=== PATIENT | female | born 1945 | race Caucasian/White ===

== ENCOUNTER → 2024-09-16 | Outpatient (CLI) | payer MEDICARE, BC, SELFPAY ==
[2024-09-16 11:06] LABS: Alanine Aminotransferase 11 U/L (10-49); Albumin, Serum 4.2 gm/dL (3.4-4.8); Albumin/Globulin Ratio 1.6 (1.2-2.2); Alkaline Phosphatase 58 U/L (46-116); Anion Gap 7 (7-16); Aspartate Amino Transferase 19 U/L (0-34); BUN/Creatinine Ratio 25 Ratio (12-20); Bilirubin,Total 0.8 mg/dL (0.3-1.2); Blood Urea Nitrogen 20 mg/dL (9-23); Calcium 9.5 mg/dL (8.3-10.6); Calcium (Corrected) 9.5 mg/dL (8.5-10.1); Carbon Dioxide 29.4 mMol/L (20.0-31.0); Cardiac Risk Estimate 2.1 RATIO (3.7-5.6); Chloride 103 mMol/L (98-107); Cholesterol 131 mg/dL (132-200); Creatinine (Component) 0.8 mg/dL (0.6-1.3); Globulin 2.6 gm/dL (2.3-3.5); Glucose 94 mg/dL (74-106); HDL Cholesterol 61 mg/dL (40-60); LDL Cholesterol,Calculated 56 mg/dL (0-130); Osmolality,Calculated 280 (275-295); Potassium 4.6 mMol/L (3.4-5.1); Sodium 139 mMol/L (136-145); Total Protein 6.8 gm/dL (5.7-8.2); Triglycerides 69 mg/dL (30-150); eGFR > 60 See Note
== END | disposition home or self-care (01) ==
LOC: COPL 07:10
PROVIDERS: PCP Internal Medicine; Referring Provider Internal Medicine; Visit Provider Internal Medicine
DX: I10 Essential (primary) hypertension (principal); E78.5 Hyperlipidemia, unspecified
CPT/HCPCS: 36415; 80053; 80061

== ENCOUNTER 2025-01-13 06:38 | Day surgery (SDC) | payer MEDICARE, BC, SELFPAY ==
[2025-01-11 09:04] VITALS: BMI 25.7
--- NOTE | 2025-01-12 07:00 | EKG_ITS ---
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
[2025-01-12 09:43] LABS: Basophils # (Auto) 0.0 Thou/mm3 (0.0-0.2); Basophils % (Auto) 0 % (0-2.5); Eosinophils # (Auto) 0.2 Thou/mm3 (0.0-0.5); Eosinophils % (Auto) 3 % (0-10); Hematocrit 37.6 % (36.0-46.0); Hemoglobin 12.5 g/dL (12.0-16.0); Immature Granulocytes Auto 0.01 Thou/mm3 (0.00-0.00); Lymphocytes # (Auto) 1.2 Thou/mm3 (1.0-4.8); Lymphocytes % (Auto) 16 % (10-50); Mean Corpuscular HGB Conc 33.2 g/dl (31.0-37.0); Mean Corpuscular Hemoglobin 31.6 pg (25.0-35.0); Mean Corpuscular Volume 95 fL (80-100); Monocytes # (Auto) 0.6 Thou/mm3 (0.0-0.8); Monocytes % (Auto) 8 % (0-12); Neutrophils # (Auto) 5.6 Thou/mm3 (1.8-7.7); Neutrophils % (Auto) 73 % (37-80); Nucleated Red Blood Cell # 0.00 Thou/mm3 (0.00-0.00); Nucleated Red Blood Cell % 0 /100 WBC (0); Platelet Count 232 Thou/mm3 (140-440); RDW Standard Deviation 44.6 fL (36.4-46.3); Red Blood Count 3.96 Miln/mm3 (4.00-5.20); White Blood Count 7.8 Thou/mm3 (3.6-11.0)
[2025-01-12 09:50] LABS: INR 1.0 (0.9-1.3); Partial Thromboplastin Time 25.3 Seconds (22.0-36.0); Prothrombin Time 11.1 Seconds (9.0-12.2)
[2025-01-12 09:58] LABS: Anion Gap 6 (7-16); BUN/Creatinine Ratio 31 Ratio (12-20); Blood Urea Nitrogen 22 mg/dL (9-23); Calcium 9.9 mg/dL (8.3-10.6); Carbon Dioxide 30.5 mMol/L (20.0-31.0); Chloride 103 mMol/L (98-107); Creatinine (Component) 0.7 mg/dL (0.6-1.3); Estimated Creatinine Clearance 60.4 mL/min (>60); Glucose 107 mg/dL (74-106); Osmolality,Calculated 280 (275-295); Potassium 4.5 mMol/L (3.4-5.1); Sodium 139 mMol/L (136-145); eGFR > 60 See Note
[2025-01-13] VITALS (12 sets, daily range): BP systolic 119–142; BP diastolic 55–74; PULSE 60–68; RESP 12–20; TEMP 36.4; O2SAT 93–97
--- NOTE | 2025-01-13 07:59 | PD.CARDCATH ---
Cardiac Cath Procedure Procedure Narrative Date of the procedure 01/13/2025 Indication for the procedure This is a 79-year-old female with hypertension hyperlipidemia artery disease Prior history of angioplasty and stent placement Patient was complaining of atypical chest pain Cardiolite scan was abnormal showing anteroseptal ischemia Cardiac catheter cholangiogram recommended Title of the procedure 1.left heart catheterization 2.left coronary angiogram 3.right coronary angiogram 4.left ventriculogram 5.conscious sedation 6.radiographic interpretation supervision 7.ultrasound guidance for right radial access Procedure This was done in the cardiac lab under current electrocardiographic monitoring Intermittent blood pressure monitoring right radial access obtained using modified Seldinger technique and ultrasound guidance 6 English sheath was placed TIG 4 catheter was used for selective engagement of the left coronary artery TIG 4 catheter was used for selective images right coronary artery TIG 4 catheter used for left ventriculogram Hemodynamics Overall left ventricular systolic function appears normal Approximate ejection fraction 55% End-diastolic pressure was 18 mmHg There is no gradient across the aortic valve Coronary anatomy 1.left main coronary artery appears normal 2.left anterior descending artery does not seem to have any significant lesion Close at the apex 30 to 40% luminal irregularities noted 3.circumflex does not seem to have any significant lesion, obtuse marginal appears to be normal 4.right coronary is a dominant vessel stent in the proximal region appears to be widely patent 5.posterior descending artery has luminal regularities Conclusion Stent in the proximal RCA widely patent No other significant lesion
== END 2025-01-13 11:10 | disposition home or self-care (01) ==
PROVIDERS: PCP Internal Medicine; Referring Provider Internal Medicine; Visit Provider Internal Medicine
PROC: (CPT 93458; principal; 2025-01-13 07:45)
DX: R07.89 Other chest pain (principal); Z95.5 Presence of coronary angioplasty implant and graft; Z01.810 Encounter for preprocedural cardiovascular examination; E78.5 Hyperlipidemia, unspecified; M79.606 Pain in leg, unspecified; I25.2 Old myocardial infarction; I10 Essential (primary) hypertension
CPT/HCPCS: 93458; 36415; 80048; 85025; 85610; 85730; 93005; 99152; A4216; A4649; C1769; C1887; C1894; J0461; J0583; J1643; J2250; J2312; J2371; J3010; J3490; Q9967

== ENCOUNTER → 2025-03-01 | Outpatient (CLI) | payer MEDICARE, BC, SELFPAY ==
[2025-03-01 08:40] LABS: Basophils # (Auto) 0.1 Thou/mm3 (0.0-0.2); Basophils % (Auto) 1 % (0-2.5); Eosinophils # (Auto) 0.3 Thou/mm3 (0.0-0.5); Eosinophils % (Auto) 3 % (0-10); Hematocrit 36.6 % (36.0-46.0); Hemoglobin 11.5 g/dL (12.0-16.0); Immature Granulocytes Auto 0.02 Thou/mm3 (0.00-0.00); Lymphocytes # (Auto) 1.3 Thou/mm3 (1.0-4.8); Lymphocytes % (Auto) 13 % (10-50); Mean Corpuscular HGB Conc 31.4 g/dl (31.0-37.0); Mean Corpuscular Hemoglobin 28.9 pg (25.0-35.0); Mean Corpuscular Volume 92 fL (80-100); Monocytes # (Auto) 1.0 Thou/mm3 (0.0-0.8); Monocytes % (Auto) 9 % (0-12); Neutrophils # (Auto) 7.6 Thou/mm3 (1.8-7.7); Neutrophils % (Auto) 74 % (37-80); Nucleated Red Blood Cell # 0.00 Thou/mm3 (0.00-0.00); Nucleated Red Blood Cell % 0 /100 WBC (0); Platelet Count 365 Thou/mm3 (140-440); RDW Standard Deviation 45.8 fL (36.4-46.3); Red Blood Count 3.98 Miln/mm3 (4.00-5.20); White Blood Count 10.3 Thou/mm3 (3.6-11.0)
[2025-03-01 08:50] LABS: Glucose Estimated Average 105 mg/dL (80-131); Hemoglobin A1C 5.3 % Hgb (4.8-6.0)
[2025-03-01 08:52] LABS: INR 1.0 (0.9-1.3); Partial Thromboplastin Time 24.9 Seconds (22.0-36.0); Prothrombin Time 10.9 Seconds (9.0-12.2)
[2025-03-01 08:58] LABS: Alanine Aminotransferase 111 U/L (10-49); Albumin, Serum 4.2 gm/dL (3.4-4.8); Albumin/Globulin Ratio 1.6 (1.2-2.2); Alkaline Phosphatase 437 U/L (46-116); Anion Gap 9 (7-16); Aspartate Amino Transferase 222 U/L (0-34); BUN/Creatinine Ratio 21 Ratio (12-20); Bilirubin,Total 0.9 mg/dL (0.3-1.2); Blood Urea Nitrogen 17 mg/dL (9-23); Calcium 9.5 mg/dL (8.3-10.6); Calcium (Corrected) 9.5 mg/dL (8.5-10.1); Carbon Dioxide 26.5 mMol/L (20.0-31.0); Cardiac Risk Estimate 4.7 RATIO (3.7-5.6); Chloride 106 mMol/L (98-107); Cholesterol 165 mg/dL (132-200); Creatinine (Component) 0.8 mg/dL (0.6-1.3); Globulin 2.7 gm/dL (2.3-3.5); Glucose 99 mg/dL (74-106); HDL Cholesterol 35 mg/dL (40-60); LDL Cholesterol,Calculated 104 mg/dL (0-130); Osmolality,Calculated 282 (275-295); Potassium 5.0 mMol/L (3.4-5.1); Sodium 141 mMol/L (136-145); Thyroid Stimulating Hormone 1.98 uIU/mL (0.55-4.78); Total Protein 6.9 gm/dL (5.7-8.2); Triglycerides 132 mg/dL (30-150); Uric Acid 5.3 mg/dL (3.1-7.8); eGFR > 60 See Note
[2025-03-01 09:01] LABS: Vitamin B12 846 pg/mL (211-911); Vitamin D 25 Hydroxy Total 51.3 ng/mL (7.3-40.2)
[2025-03-01 13:03] LABS: Collection Type, Urine Clean Catch
[2025-03-01 13:38] LABS: Bilirubin,Urine Negative (Negative); Blood,Urine Negative (Negative); Clarity,Urine Clear (Clear/Hazy); Color,Urine Lt-Yellow (Lt Yel-Yel); Glucose, Urine Negative (Negative); Hyaline Casts,Urine < 1 /hpf (0-1); Ketones,Urine Trace (Negative); Leukocyte Esterase,Urine Positive (Negative); Nitrite,Urine Negative (Negative); PH,Urine 6.0 (5.0-7.0); Protein,Urine 1+ (Neg - Trace); RBC,Urine 4 /hpf (0-3); Specific Gravity,Urine 1.013 (1.001-1.035); Squamous Epithelial Cell,Urine 2 /hpf (0-5); Urobilinogen,Urine Negative mg/dL (0.0-1.0); WBC,Urine 7 /hpf (0-5)
== END | disposition home or self-care (01) ==
PROVIDERS: PCP Internal Medicine; Referring Provider Internal Medicine; Visit Provider Internal Medicine
DX: I25.10 Atherosclerotic heart disease of native coronary artery without angina pectoris (principal); I48.91 Unspecified atrial fibrillation; Z00.00 Encounter for general adult medical examination without abnormal findings; I10 Essential (primary) hypertension; E78.5 Hyperlipidemia, unspecified; M54.50 Low back pain, unspecified; D51.9 Vitamin B12 deficiency anemia, unspecified; E55.9 Vitamin D deficiency, unspecified
CPT/HCPCS: 36415; 80053; 80061; 81001; 82306; 82607; 83036; 84443; 84550; 85025; 85610; 85730

== ENCOUNTER 2025-03-03 16:48 | Inpatient (IN) | payer MEDICARE, BC, SELFPAY ==
[2025-03-03 16:49] VITALS: BMI 24.0
[2025-03-03 17:07] VITALS: BP 108/68; PULSE 91; RESP 18; TEMP 37.1; O2SAT 96
--- NOTE | 2025-03-03 17:32 | XR_ITS ---
EXAMINATION: PA chest single view TECHNIQUE: Upright PA chest single view Date and time: March 03, 2025, 1736 hours INDICATIONS: Shortness of breath today. FINDINGS: Normal heart size The lungs are clear. The osseous structures are demineralized IMPRESSION: No active disease
--- NOTE | 2025-03-03 17:32 | XR_ITS ---
Examination: Abdomen sonogram, Limited Date and time of exam: March 03, 2025, 1753 hours INDICATIONS: Elevated liver function tests on laboratory examination today, abdominal pain 2 weeks Technique: Real-time jacobo scale transabdominal sonographic images of the upper abdomen obtained. Findings: No diagnostic visualization gallbladder Common bile duct 0.2 cm Pancreatic head 2.0 cm Liver 16.7 cm multiple liver lesions, the largest in the left lobe 7.7 x 5.6 x 7.0 cm Liver contour is irregular Normal hepatopetal portal venous flow Patent IVC IMPRESSION: Recommend repeat gallbladder portion of the study with fasting Hepatomegaly with multiple liver lesions Recommend CT scan abdomen/pelvis post intravenous contrast follow-up
--- NOTE | 2025-03-03 17:33 | EKG_ITS ---
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
--- NOTE | 2025-03-03 17:34 | PD.EDADULT ---
ED General RME/HPI General Chief complaint: General Adult/Misc Complain Stated complaint: GEN WEAKNESS, FEELS SICK XCOUPLE WEEKS SENT BY VEM Time Seen by Provider: 03/03/25 17:21 Arrival date/time: 03/03/25 16:48 RME / HPI RME / HPI narrative: 79-year-old female patient was brought in by family after patient was advised to go to the emergency room for generalized body weakness. Patient has been having worsening generalized body weakness, before he used to voluntary in the hospital, and that was last week, but for the last couple of days, patient felt tired easily, associated with shortness of breath, severity moderate. Patient was seen by PCP 2 days ago and laboratory workup was done. Today got a call from the PCP Dr Montes, to go to the emergency room due to elevated LFTs. Patient denies any abdominal pain denies any cough denies any headache denies any upper or lower extremity weakness. Related Data Home Medications ?Medication ?Instructions ?Recorded ?Confirmed alprazolam 0.25 mg tablet 0.25 mg PO Q12H PRN anxiety 01/13/25 01/13/25 aspirin 81 mg tablet,delayed 81 mg PO QDAY 01/13/25 01/13/25 release (Adult Low Dose Aspirin) atorvastatin 80 mg tablet 80 mg PO QDAY 01/13/25 01/13/25 carvedilol 3.125 mg tablet 3.125 mg PO DAILY 01/13/25 01/13/25 escitalopram oxalate 10 mg tablet 10 mg PO DAILY 01/13/25 01/13/25 Allergies Allergy/AdvReac Type Severity Reaction Status Date / Time No Known Allergies Allergy Verified 03/03/25 16:51 Review of Systems Review of Systems Narrative Review of Systems: Review of system reviewed and within normal limits except mentioned in HPI ED Exam Narrative Physical exam: VITAL SIGNS: Reviewed. GENERAL APPEARANCE: Alert and interactive, follows commands, no acute distress, HEAD AND FACE: Non-traumatic. ENT: PERRL, pink conjunctivitis, eyelid no trauma, Mucous membrane moist. NECK: Supple, nontender, no nuchal rigidity. CHEST: No tenderness, no crepitus, no paradoxical movement, no retractions. LUNGS: Clear, well ventilated, symmetric, no rales, no wheezing, no ronchi, no stridor, good breath sounds bilaterally. HEART: Regular rate, regular rhythm, no murmur, no gallops. ABDOMEN: Soft, positive bowel sounds, nondistended, no guarding, nontender, no rebound, no masses, RECTAL: Deferred. GENITAL: Deferred. NEUROLOGICAL: Gross motor function intact sensory function intact, Appropriate for age. MUSCULOSKELETAL: low back nontender, full range of motion. EXTREMITIES: Nontender, full range of motion. SKIN: Color pink, dry, no rash, no lacerations, no abrasions, no contusions. LYMPHATICS: Deferred. Course Quality Measures none Orders Category Date Time Status Admit to Inpatient Status Routine Admission 03/03/25 20:44 Active COVID-19 Screening Questionnaire NOW Care 03/03/25 20:[address] Screening NOW Care 03/03/25 19:53 Active Decision to Admit X1 Care 03/03/25 20:35 Completed EKG (ED ONLY) *Do not use* NOW Care 03/03/25 17:33 Completed NPO after Midnight ONCE Care 03/03/25 20:46 Active Diet Cardiac Diet 03/04/25 Breakfast Active Diet NPO after Midnight Diet 03/04/25 00:01 Active EKG (ED Only) Stat Exams 03/03/25 17:33 Draft US gall bladder Stat Exams 03/03/25 17:32 Completed XR chest 1V Stat Exams 03/03/25 17:32 Completed B-Type Natriuretic Peptide Stat Lab 03/03/25 17:49 Completed CBC Stat Lab 03/03/25 17:49 Completed CK [Creatine Kinase] Stat Lab 03/03/25 17:49 Completed Comprehensive Metabolic Panel Stat Lab 03/03/25 17:49 Completed Hepatitis Acute Panel Stat Lab 03/03/25 17:49 Completed Lipase Stat Lab 03/03/25 17:49 Completed Partial Thromboplastin Time Stat Lab 03/03/25 17:49 Completed Troponin I Stat Lab 03/03/25 17:49 Completed Urinalysis, C/S if Indicated Stat Lab 03/03/25 17:32 Ordered Ringers Lactated 1000 ml [Lactated Ringers] 1,000 ml Med 03/03/25 17:34 Discontinued IV 999 mls/hr Sodium Chloride 0.9% 1000 ml [Ns] 1,000 ml Med 03/03/25 20:47 Active IV 70 mls/hr Code Status Routine Oth 03/03/25 20:44 Ordered Vital Signs Vital signs: Vital Signs Temperature 98.7 F 03/03/25 17:07 Pulse Rate 91 03/03/25 17:07 Respiratory Rate 18 03/03/25 17:07 Blood Pressure 108/68 03/03/25 17:07 Pulse Oximetry (%) 96 03/03/25 17:07 Oxygen Delivery Method Room Air 03/03/25 17:07 Discharge Plan Plan Patient Disposition: Admit Acute Care w/in Hospital Problem List Clinical Impression: Transaminitis, Lesion of liver MDM Narrative MDM hospital course (for use when minimal MDM required): 79-year-old female patient was brought in by family after patient was advised to go to the emergency room for generalized body weakness. Patient has been having worsening generalized body weakness, before he used to voluntary in the hospital, and that was last week, but for the last couple of days, patient felt tired easily, associated with shortness of breath, severity moderate. Patient was seen by PCP 2 days ago and laboratory workup was done. Today got a call from the PCP Dr Montes, to go to the emergency room due to elevated LFTs. Patient denies any abdominal pain denies any cough denies any headache denies any upper or lower extremity weakness. I reviewed patient's previous LFTs, it was elevated, 2 days if LFTs are slightly worse than 2 days ago. AST of 230, ALT of 107 alkaline phos of 463, total creatinine kinase of 515. CT scan of the abdomen and pelvis showed Subcentimeter bilateral lower lobe pulmonary nodules Significant hepatomegaly with multiple hepatic metastases No bowel obstruction Trace ascites Patient received IV fluids. Discussed the case with patient's PCP, who admitted the patient. Medication Administration(s) Medication Administration History Sodium Chloride (Ns) 1,000 mls @ 70 mls/hr IV .[id number] JEROME Stop: 04/02/25 20:46 Last Admin: 03/03/25 21:07 Dose: 70 mls/hr Documented By: BRYAN Discontinued Medications Lactated Ringer's (Lactated Ringers) 1,000 mls @ 999 mls/hr IV .Q1H1M ONE Stop: 03/03/25 18:34 Last Infusion: 03/03/25 20:04 Dose: Infused Documented By: Admin: 03/03/25 18:33 Dose: 999 mls/hr Documented By: EF Diagnosis Differential Diagnosis ED Complaint MDM: Dehydration, liver mass, multiple liver lesions possible metastasis
[2025-03-03 18:10] LABS: Basophils # (Auto) 0.1 Thou/mm3 (0.0-0.2); Basophils % (Auto) 1 % (0-2.5); Eosinophils # (Auto) 0.3 Thou/mm3 (0.0-0.5); Eosinophils % (Auto) 2 % (0-10); Hematocrit 35.0 % (36.0-46.0); Hemoglobin 11.3 g/dL (12.0-16.0); Immature Granulocytes Auto 0.04 Thou/mm3 (0.00-0.00); Lymphocytes # (Auto) 1.2 Thou/mm3 (1.0-4.8); Lymphocytes % (Auto) 12 % (10-50); Mean Corpuscular HGB Conc 32.3 g/dl (31.0-37.0); Mean Corpuscular Hemoglobin 29.1 pg (25.0-35.0); Mean Corpuscular Volume 90 fL (80-100); Monocytes # (Auto) 1.0 Thou/mm3 (0.0-0.8); Monocytes % (Auto) 9 % (0-12); Neutrophils # (Auto) 7.9 Thou/mm3 (1.8-7.7); Neutrophils % (Auto) 76 % (37-80); Nucleated Red Blood Cell # 0.00 Thou/mm3 (0.00-0.00); Nucleated Red Blood Cell % 0 /100 WBC (0); Platelet Count 363 Thou/mm3 (140-440); RDW Standard Deviation 44.7 fL (36.4-46.3); Red Blood Count 3.88 Miln/mm3 (4.00-5.20); White Blood Count 10.4 Thou/mm3 (3.6-11.0)
[2025-03-03 18:22] VITALS: BP 134/62; PULSE 77; RESP 15; O2SAT 97
[2025-03-03 18:28] LABS: B-Type Natriuretic Peptide 93 pg/mL (0-100)
[2025-03-03 18:30] LABS: Alanine Aminotransferase 107 U/L (10-49); Albumin, Serum 4.3 gm/dL (3.4-4.8); Albumin/Globulin Ratio 1.7 (1.2-2.2); Alkaline Phosphatase 463 U/L (46-116); Anion Gap 11 (7-16); Aspartate Amino Transferase 230 U/L (0-34); BUN/Creatinine Ratio 16 Ratio (12-20); Bilirubin,Total 0.9 mg/dL (0.3-1.2); Blood Urea Nitrogen 13 mg/dL (9-23); Calcium 9.1 mg/dL (8.3-10.6); Calcium (Corrected) 9.1 mg/dL (8.5-10.1); Carbon Dioxide 23.6 mMol/L (20.0-31.0); Chloride 103 mMol/L (98-107); Creatine Kinase 514 U/L (34-171); Creatinine (Component) 0.8 mg/dL (0.6-1.3); Estimated Creatinine Clearance 50.0 mL/min (>60); Globulin 2.5 gm/dL (2.3-3.5); Glucose 110 mg/dL (74-106); Lipase 61 U/L (12-53); Osmolality,Calculated 276 (275-295); Potassium 4.2 mMol/L (3.4-5.1); Sodium 138 mMol/L (136-145); Total Protein 6.8 gm/dL (5.7-8.2); Troponin I < 0.020 ng/mL (0.0-0.045); eGFR > 60 See Note
[2025-03-03 18:33] LABS: Partial Thromboplastin Time 23.6 Seconds (22.0-36.0)
[2025-03-03] MEDS: RINGERS LACTATED 1000 ML 1,000 ML 999 ML IV (18:33)
[2025-03-03 19:22] VITALS: BP 145/60; PULSE 71; RESP 16; TEMP 37.1; O2SAT 98
[2025-03-03 19:23] LABS: Hepatitis A Antibody IgM Non Reactive (Non React); Hepatitis B Core Antibody IgM Non Reactive (Non React); Hepatitis B Surface Antigen Non Reactive (Non React); Hepatitis C Antibody Non Reactive (Non React)
--- NOTE | 2025-03-03 20:05 | PC.NURSE ---
pt resting quietly. family at bedside. waiting for CT.
[2025-03-03 21:03] VITALS: BP 116/60; PULSE 75; RESP 18; TEMP 37; O2SAT 96
[2025-03-03] MEDS: SODIUM CHLORIDE 0.9% 1000 ML 1,000 ML 70 ML IV (21:07)
--- NOTE | 2025-03-03 22:07 | XR_ITS ---
Examination: CT abdomen with intravenous contrast CT pelvis with intravenous contrast 2-D coronal reconstructions 2-D sagittal reconstructions Date and time of exam: March 03, 2025, 10:22 p.m INDICATIONS: Acute elevated liver enzymes on laboratory examination today, multiple liver lesions on ultrasound study today. CTDI: vol (mGy) 8.50 DLP: (mGycm) 495 Technique: Multiple axial sections of the abdomen and pelvis have been obtained. 64 slice high-resolution scanner used. 3 mm axial sections have been obtained, post intravenous injection 60 cc [id number] 2-D sagittal, coronal reconstructions obtained. Low dose protocols were performed. One or more of the following dose reduction techniques were used; automated exposure control, adjustment of the mA and/or KV according to patient size, use of iterative reconstruction technique. Findings: 3 mm pulmonary nodule left lower lobe 4 mm pulmonary nodule right lower lobe Multiple liver lesions including 5 cm mass in the left lobe The liver is enlarged No pancreatic or adrenal mass Aorta is heavily calcified no aneurysmal dilatation Trace ascites No bowel obstruction Bladder intact No diverticulitis Grade 1 anterolisthesis L4 on L5 IMPRESSION: Subcentimeter bilateral lower lobe pulmonary nodules Significant hepatomegaly with multiple hepatic metastases No bowel obstruction Trace ascites
[2025-03-03 23:54] VITALS: BMI 25.3
[2025-03-04] VITALS (18 sets, daily range): BP systolic 121–159; BP diastolic 41–76; PULSE 60–76; RESP 12–24; TEMP 36.1–36.9; O2SAT 91–100
--- NOTE | 2025-03-04 05:53 | XR_ITS ---
Examination: CT-guided percutaneous biopsy left lobe liver lesion CT abdomen without intravenous contrast INDICATIONS: CT abdomen pelvis March 03, 2025 and multiple liver lesions Date and time of procedure: March 04, 2025, 1039 hours Informed consent provided. A timeout was completed verifying correct patient, procedure, site and positioning. Technique: Axial 3 mm sections were obtained for localization of a left lobe liver lesion Appropriate area is marked. The patient's site was prepped and draped in sterile fashion Maximal sterile barrier technique utilized, including hand hygiene Local anesthesia was obtained with 1% lidocaine. Low dose protocols were performed. One or more of the following dose reduction techniques were used; automated exposure control, adjustment of the mA and/or KV according to patient size, use of iterative reconstruction technique. Utilizing CT fluoroscopic guidance 2 core biopsies obtained the left lobe liver lesion Patient appears in stable condition during this procedure. At completion of the procedure, the patient is in satisfactory condition. Estimated blood loss 2 cc Complete pathology report to follow. Impression: Successful CT-guided percutaneous biopsy left lobe liver lesion
--- NOTE | 2025-03-04 05:58 | XR_ITS ---
Examination: CT chest, without contrast. 2-D sagittal reconstructions. 2-D coronal reconstructions. 3-D reconstructions. Date and time of exam: March 04, 2025, 1026 hours INDICATIONS: History lung nodules and liver masses on CT abdomen study March 03, 2025, staging CTDI: vol (mGy): 9.48 DLP: (mGycm): 293 Technique: Multiple 1.25 mm axial sections of the chest without intravenous contrast have been obtained. 2-D sagittal and coronal reconstructions have been obtained. 3-D reconstructions have been obtained. Low dose protocols were performed. One or more of the following dose reduction techniques were used; automated exposure control, adjustment of the mA and/or KV according to patient size, use of iterative reconstruction technique. Findings: 2 mm calcified right thyroid nodule No thoracic aortic aneurysm dilatation Pulmonary artery segments are not enlarged. Heavy calcification left anterior descending coronary artery Mild enlargement cardiac contour 3 mm pulmonary nodule right upper lobe image 58 4 mm pulmonary nodule right upper lobe image 95 3 mm pulmonary nodule left upper lobe image 150 10 mm pulmonary nodule right middle lobe image 172 Severe osteopenia IMPRESSION: Multiple noncalcified pulmonary nodules as above, consider early pulmonary nodular metastatic disease Recommend continued chest imaging follow-up
[2025-03-04 08:05] LABS: AFP Non-Pregnant 6.60 ng/mL (<8.10); CA 125 20.0 U/mL (<30.2); CA 15-3 10.2 U/mL (<32.4); Carcinoembryonic Antigen 272.7 ng/mL (0.0-5.0)
[2025-03-04] MEDS: ESCITALOPRAM OXALATE 10 MG TABLET PO (09:13)
[2025-03-04 09:35] LABS: INR 1.1 (0.9-1.3); Partial Thromboplastin Time 24.8 Seconds (22.0-36.0); Prothrombin Time 11.6 Seconds (9.0-12.2)
--- NOTE | 2025-03-04 09:40 | PC.NURSE ---
[id number] 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
[2025-03-04] MEDS: fentaNYL CIT INJ 50 mCg/ML AMP 2ML 75 MCG IVP (10:46)
--- NOTE | 2025-03-04 11:00 | PC.NURSE ---
1100 patient is awake, alert, breathing unlabored, s/p liver biopsy, dressing to right upper abdomen dry with no bleeding. Patient transferred from CT department to woven label designer for recovery. Dr. Recinos ordered chest xray prior to taking patient back to her room.
--- NOTE | 2025-03-04 11:00 | XR_ITS ---
EXAMINATION: AP chest single view TECHNIQUE: 1. AP portable upright chest single view Date and time: March 04, 2025, 11:26 a.m. INDICATIONS: Post biopsy liver lesion near the hemidiaphragm FINDINGS: No pneumothorax No significant cardiac enlargement Prominent osteopenia IMPRESSION: No pneumothorax
--- NOTE | 2025-03-04 11:12 | PC.SS ---
Patient Chanell Nair is a 79 Year old female admitted for Acute Hepatitis, Elevated Liver Enzymes. SS contacted patient's daughter, Aneta Lindo to verify demographic information. Patient's daughter reports she is patient's surrogate decision maker, [phone]. Prior to admission patient was not utilizing any source of DME. Patient was able to complete all ADL's independently. [facility] PCP is Florencio Ruiz. At time of discharge patient will return back home. Family will provide transportation. Discharge plan: Home Next of kin: daughterAneta
--- NOTE | 2025-03-04 11:22 | PC.SS ---
SS follow up note; Patient is pending Liver biopsy. Patient will discharge back home when medically cleared.
--- NOTE | 2025-03-04 11:30 | PC.NURSE ---
chest xray taken
--- NOTE | 2025-03-04 11:50 | PC.NURSE ---
1150 patient is awake, alert, breathing unlabored, s/p liver biopsy, dressing dry with no bleeding, report given to Tommie RN, patient transferred back to room 382. chest xray completed and ready by maciej Gao to transfer patient back to med surg room.
--- NOTE | 2025-03-04 12:24 | PC.NURSE ---
pt back from ir pt alert and oriented gcs 15 no signs of distress noted.
--- NOTE | 2025-03-04 14:12 | PD.RESHP ---
Documentation for date of: 03/04/25 HPI History of Present Illness Chief complaint: Elevated liver enzymes, multiple liver lesions History of present illness: HPI: A 79-year-old female patient with past medical history of hypertension, hyperlipidemia, CAD status post angioplasty and stent placement came to the ED after she was found to have elevated liver enzymes by her PCP. She reported for the past 1 month she has been feeling not good and she reported severe lower extremity weakness. She reported that she was unable to ambulate as usual to be, she also reported not feeling herself. Patient called her PCP Dr. Montes, in which blood work was done and showed elevated liver enzymes AST 222 ALT 111 alkaline phosphatase 437 and normal total bilirubin. Patient underwent liver ultrasound that showed multiple liver lesions. An abdominal and pelvic CT scan was done and showed significant hepatomegaly with multiple hepatic metastasis and also subcentimeter is bilateral nodules in both lungs. Her CEA level was 200. Surprisingly patient denied any nausea, vomiting, abdominal pain, distention, constipation, or bleeding per rectum. She reported that her bowel habits usually have a bowel movement 2 to 3 days which is her usual bowel habit with no change. GI team was consulted due to elevated liver enzyme 272.7, and multiple liver lesions most likely metastasis of unknown source and the possibility the need for colonoscopy. Home medications: Alprazolam, aspirin, atorvastatin, carvedilol, escitalopram PMH: As above PSX: No previous colonoscopies in the past or EGDs. PFX: Sister with history of throat cancer , brother with lung cancer. Social hx: Alcohol: Used to drink socially, no history of alcohol use disorder Tobacco: Occasionally stopped when she was in her 30s Illicit drugs: Denied Allergies: No known allergies Review of Systems Review of Systems Systems Reviewed: All systems reviewed, normal except as documented Exam Vital Signs Temp Pulse Resp BP Pulse Ox O2 Del Method O2 Flow Rate 97.0 F 70 16 130/62 95 Room Air 3 03/04/25 12:00 03/04/25 12:00 03/04/25 12:00 03/04/25 12:00 03/04/25 12:00 03/04/25 12:00 03/04/25 10:57 Narrative Exam GEN: AOx3, able to speak full sentences HEENT: NC/AC, PERRLA, oral mucosa moist, neck supple CVS: RRR, S1-S2 present, no murmurs appreciated RESP: CTAB GI: soft,non distended, non tender, NBS MSK: able to move all 4 limbs, however decreased power 3/5 both lower extremity no lower extremity edema SKIN: warm and dry ARMOURED CAR ESCORT: CN II-XII and Sensation grossly intact. Results: Labs 03/03/25 17:49 03/03/25 17:49 Labs: Short CBC 03/03/25 Range/Units 17:49 WBC 10.4 (3.6-11.0) Thou/mm3 Hgb 11.3 L (12.0-16.0) g/dL Hct 35.0 L (36.0-46.0) % Plt Count 363 (140-440) Thou/mm3 BMP 03/03/25 17:49 Sodium 138 Potassium 4.2 D Chloride 103 Carbon Dioxide 23.6 BUN 13 Creatinine 0.8 Glucose 110 H Calcium 9.1 Cardiac Enzymes 03/03/25 Range/Units 17:49 Total Creatine Kinase 514 H (34-171) U/L Troponin I < 0.020 (0.0-0.045) ng/mL Liver Function 03/03/25 Range/Units 17:49 Total Bilirubin 0.9 (0.3-1.2) mg/dL AST 230 H (0-34) U/L ALT 107 H (10-49) U/L Alkaline Phosphatase 463 H D (46-116) U/L Albumin 4.3 (3.4-4.8) gm/dL Urine 03/03/25 Range/Units 23:35 Urine Color Cancelled Urine Clarity Cancelled Urine pH Cancelled Ur Specific [place] Cancelled Urine Protein Cancelled Urine Glucose (UA) Cancelled Quality Measures Quality Measures none Advance care planning discussed with:: patient Medications Home Medications and Allergies Home Medications ?Medication ?Instructions ?Recorded ?Confirmed ?Type alprazolam 0.25 mg tablet 0.25 mg PO Q12H PRN anxiety 01/13/25 03/04/25 History aspirin 81 mg tablet,delayed 81 mg PO QDAY 01/13/25 03/04/25 History release (Adult Low Dose Aspirin) atorvastatin 80 mg tablet 80 mg PO QDAY 01/13/25 03/04/25 History carvedilol 3.125 mg tablet 3.125 mg PO DAILY 01/13/25 03/04/25 History escitalopram oxalate 10 mg tablet 10 mg PO DAILY 01/13/25 03/04/25 History Allergies Allergy/AdvReac Type Severity Reaction Status Date / Time No Known Allergies Allergy Verified 03/03/25 16:51 Visit Medications Alprazolam (Alprazolam 0.25 Mg Tablet) 0.25 mg PO Q12H PRN PRN Reason: ANXIETY Stop: 03/09/25 05:52 Carvedilol (Carvedilol 3.125 Mg Tablet) 3.125 mg PO DAILY JEROME Stop: 04/03/25 08:59 Last Admin: 03/04/25 09:13 Dose: 3.125 mg Escitalopram Oxalate (Escitalopram Oxalate 10 Mg Tablet) 10 mg PO DAILY JEROME Stop: 04/03/25 08:59 Last Admin: 03/04/25 09:13 Dose: 10 mg Sodium Chloride (Ns) 1,000 mls @ 70 mls/hr IV .[id number] JEROME Stop: 04/02/25 20:46 Last Admin: 03/03/25 21:07 Dose: 70 mls/hr Discontinued Medications Fentanyl Citrate (Fentanyl Cit Inj 50 Mcg/Ml Amp 2ml) 75 mcg IVP X1 ONE Stop: 03/04/25 10:42 Last Admin: 03/04/25 10:46 Dose: 75 mcg Lactated Ringer's (Lactated Ringers) 1,000 mls @ 999 mls/hr IV .Q1H1M ONE Stop: 03/03/25 18:34 Last Infusion: 03/03/25 20:04 Dose: Infused Assessment & Plan Plan Summary:A 79-year-old female patient with past medical history of hypertension, hyperlipidemia, CAD status post angioplasty and stent placement came to the ED after she was found to have elevated liver enzymes by her PCP. She reported for the past 1 month she has been feeling not good and she reported severe lower extremity weakness. Patient was found to have multiple liver lesions and elevated CEA and liver enzymes. Assessment and plan #Multiple liver lesions #Hepatomegaly #Elevated liver enzymes Patient was complaining of generalized weakness for 1 month, denied any weight loss. She has 2 siblings diagnosed with cancer at the age of 60. Reported that she has also anorexia. Patient underwent liver ultrasound that showed multiple liver lesions. An abdominal and pelvic CT scan was done and showed significant hepatomegaly with multiple hepatic metastasis and also subcentimeter is bilateral nodules in both lungs. Her CEA level was 272.2. AFP was normal, surprisingly patient denied any nausea, vomiting, abdominal pain, distention, constipation, or bleeding per rectum. blood work was done and showed elevated liver enzymes AST 222 ALT 111 alkaline phosphatase 437 and normal total bilirubin Plan ? Patient will most likely need colonoscopy, ? Keep the patient n.p.o. start the patient on GoLytely ? Daily CBC monitor hemoglobin and transfuse as needed ? Consider consulting oncology ? Can continue aspirin 81 mg a medication #Pulmonary nodules #Hypertension #Coronary artery disease #Anxiety and depression Continue medication as per primary team Thank you for consultation, please do not hesitate to reach out if you have any question or concern. - Patient's plan and care discussed with my attending, Dr. Nagi Vyas MD Internal Medicine PGY-3
--- NOTE | 2025-03-04 16:17 | ESHP_ITS ---
Documentation for date of: 03/04/25 [facility] History of Present Illness Chief complaint: Generalized weakness for several weeks, sent by PCP for elevated LFT History of present illness: 79-year-old female with past medical history significant for hypertension, hyperlipidemia, and coronary artery disease status post angioplasty and stent placement, who presented to the emergency department after being advised by her PCP, Dr. Montes, due to elevated liver enzymes and progressive generalized weakness. The patient reports feeling ?not good? for approximately one month, with increasing fatigue and bilateral lower extremity weakness. Over the past week, she noted worsening tiredness and shortness of breath with minimal exertion. She denies any chest pain, palpitations, cough, fever, chills, abdominal pain, nausea, vomiting, distention, jaundice, constipation, melena, hematochezia, or urinary symptoms. She describes normal bowel habits of 2?3 days between movements, which is unchanged from baseline. She has not noticed unintentional weight loss but does endorse decreased appetite and mild anorexia. She was evaluated by her PCP yesterday, where labs showed elevated AST 222, ALT 111, alkaline phosphatase 437, and normal bilirubin. A liver ultrasound revealed multiple hepatic lesions, prompting a CT abdomen/pelvis, which showed significant hepatomegaly with numerous hepatic metastases and subcentimeter pulmonary nodules bilaterally. In the ED, repeat labs demonstrated further elevation of LFTs (AST 238, ALT 107, Alk Phos 463) and CEA 272, with normal AFP, CA 125, and CA 15-3. Patient was started on IV fluids, GI was consulted, and she was admitted for further evaluation and management of multiple hepatic lesions concerning for metastatic disease of unknown primary. Review of Systems: Constitutional: +Fatigue, +Weakness, denies weight loss, fevers, or chills HEENT: No headache, vision changes, sore throat Cardiac: Denies chest pain or palpitations Respiratory: Mild exertional dyspnea, denies cough or sputum GI: Denies abdominal pain, N/V, melena, hematochezia, or jaundice : No dysuria or hematuria Neuro: No focal weakness, no paresthesia, no confusion MSK: Mild generalized weakness, no joint pain or swelling Skin: No rash, lesions, or jaundice Psych: Reports mild anxiety; denies depression or SI/HI Past Medical History: * Hypertension * Hyperlipidemia * Coronary artery disease s/p angioplasty and stent placement * Anxiety and depression Past Surgical History: * Angioplasty and coronary stent placement * Denies prior EGD or colonoscopy Family History: * Sister: Throat cancer * Brother: Lung cancer Social History: * Tobacco: Former smoker, quit in her 30s * Alcohol: Occasional, social only; denies heavy use * Drugs: Denies illicit drug use * Living situation: Lives with family, independent in ADLs Allergies: * No known drug allergies (NKDA) Home Medications: * Alprazolam 0.25 mg Q12H PRN * Aspirin 81 mg daily * Atorvastatin 80 mg daily * Carvedilol 3.125 mg BID * Escitalopram 10 mg daily Exam Vital Signs Temp Pulse Resp BP Pulse Ox O2 Del Method O2 Flow Rate 97.4 F 75 18 140/64 H 94 L Room Air 3 03/04/25 16:00 03/04/25 16:00 03/04/25 16:00 03/04/25 16:00 03/04/25 16:00 03/04/25 16:00 03/04/25 10:57 Narrative Exam General: Alert, oriented ?3, no acute distress, conversant. HEENT: Normocephalic, atraumatic; PERRL; oral mucosa moist; no icterus. Neck: Supple, no JVD, no thyromegaly. Cardiac: Regular rate and rhythm; no murmurs, rubs, or gallops. Lungs: Clear to auscultation bilaterally, no rales, wheezes, or rhonchi. Abdomen: Soft, nondistended, nontender; hepatomegaly noted; bowel sounds present. Extremities: No edema; peripheral pulses intact. Neuro: Cranial nerves II?XII grossly intact; strength 3/5 lower extremities, 5/5 upper; sensation intact. Skin: Warm, dry; no jaundice or rash. Results: Labs 03/06/25 04:16 03/06/25 04:16 Labs: Short CBC 03/03/25 Range/Units 17:49 WBC 10.4 (3.6-11.0) Thou/mm3 Hgb 11.3 L (12.0-16.0) g/dL Hct 35.0 L (36.0-46.0) % Plt Count 363 (140-440) Thou/mm3 BMP 03/03/25 17:49 Sodium 138 Potassium 4.2 D Chloride 103 Carbon Dioxide 23.6 BUN 13 Creatinine 0.8 Glucose 110 H Calcium 9.1 Cardiac Enzymes 03/03/25 Range/Units 17:49 Total Creatine Kinase 514 H (34-171) U/L Troponin I < 0.020 (0.0-0.045) ng/mL Liver Function 03/03/25 Range/Units 17:49 Total Bilirubin 0.9 (0.3-1.2) mg/dL AST 230 H (0-34) U/L ALT 107 H (10-49) U/L Alkaline Phosphatase 463 H D (46-116) U/L Albumin 4.3 (3.4-4.8) gm/dL Urine 03/03/25 Range/Units 23:35 Urine Color Cancelled Urine Clarity Cancelled Urine pH Cancelled Ur Specific [place] Cancelled Urine Protein Cancelled Urine Glucose (UA) Cancelled Quality Measures Quality Measures VTE prophylaxis Advance care planning discussed with:: patient Medications Home Medications and Allergies Home Medications ?Medication ?Instructions ?Recorded ?Confirmed ?Type alprazolam 0.25 mg tablet 0.25 mg PO Q12H PRN anxiety 01/13/25 03/04/25 History aspirin 81 mg tablet,delayed 81 mg PO QDAY 01/13/25 History release (Adult Low Dose Aspirin) atorvastatin 80 mg tablet 80 mg PO QDAY 01/13/2503/04 History carvedilol 3.125 mg tablet 3.125 mg PO DAILY 01/13/25 03/04/25 History escitalopram oxalate 10 mg tablet 10 mg PO DAILY 01/1303/04/25 History Allergies Allergy/AdvReac Type Severity Reaction Status Date / Time No Known Allergies Allergy Verified 03/03/25 16:51 Visit Medications Alprazolam (Alprazolam 0.25 Mg Tablet) 0.25 mg PO Q12H PRN PRN Reason: ANXIETY Stop: 03/09/25 05:52 Carvedilol (Carvedilol 3.125 Mg Tablet) 3.125 mg PO DAILY JEROME Stop: 04/03/25 08:59 Last Admin: 03/04/25 09:13 Dose: 3.125 mg Escitalopram Oxalate (Escitalopram Oxalate 10 Mg Tablet) 10 mg PO DAILY JEROME Stop: 04/03/25 08:59 Last Admin: 03/04/25 09:13 Dose: 10 mg Sodium Chloride (Ns) 1,000 mls @ 70 mls/hr IV .[id number] JEROME Stop: 04/02/25 20:46 Last Admin: 03/03/25 21:07 Dose: 70 mls/hr Discontinued Medications Fentanyl Citrate (Fentanyl Cit Inj 50 Mcg/Ml Amp 2ml) 75 mcg IVP X1 ONE Stop: 03/04/25 10:42 Last Admin: 03/04/25 10:46 Dose: 75 mcg Lactated Ringer's (Lactated Ringers) 1,000 mls @ 999 mls/hr IV .Q1H1M ONE Stop: 03/03/25 18:34 Last Infusion: 03/03/25 20:04 Dose: Infused Assessment & Plan Plan 79-year-old female with CAD, HTN, and HLD presenting with 1 month of progressive generalized weakness and recent labs showing markedly elevated LFTs and imaging consistent with multiple hepatic metastases and pulmonary nodules concerning for metastatic malignancy of unknown primary. # Multiple Hepatic Lesions / Hepatomegaly Likely metastatic disease; primary likely GI origin given markedly elevated CEA and classic liver + lung pattern. DDX: -Metastatic colorectal carcinoma (CEA markedly elevated; no prior colonoscopy; classic hepatic and pulmonary spread) -Pancreaticobiliary malignancy ? less likely (no obstructive pattern, normal CA 19-9) -Metastatic lung carcinoma ? possible with pulmonary nodules -Metastatic breast carcinoma ? less likely (CA 15-3 normal) -Cholangiocarcinoma ? possible but imaging favors discrete metastatic lesions Plan: * Await liver biopsy pathology * Keep NPO after midnight for possible colonoscopy * Start GoLYTELY bowel prep per GI * Daily CMP, CBC to trend LFTs and monitor for anemia * Will consider consulting oncology for further evaluation * Continue IV fluids for hydration * Pain control PRN * Nutritional evaluation and support # Elevated Liver Enzymes Pattern consistent with cholestatic/mixed injury due to metastatic involvement. No evidence of obstructive jaundice or infection. Plan: * Continue to monitor LFT trends * Avoid hepatotoxic medications (hold statin for now) * Continue IV hydration * Monitor for signs of hepatic decompensation # Pulmonary Nodules CT chest shows multiple non-calcified nodules suggestive of early metastatic disease. Plan: * Will consult oncology tomorrow to evaluate for staging workup # Hypertension Stable, controlled on current meds. Plan: * Continue carvedilol * Monitor BP daily # Coronary Artery Disease s/p stent; currently stable, denies chest pain. Plan: * Hold aspirin for now * Hold statin due to LFT elevation * Monitor cardiac enzymes and telemetry # Anxiety and Depression Stable on escitalopram and alprazolam PRN. Plan: * Continue home meds * Supportive care Health Maintenance: Admit to Medicine for further diagnostic work-up, GI and Oncology involved Await biopsy results and tumor staging DVT prophylaxis: SCD GI prophylaxis: PPI daily Diet: NPO for colonoscopy prep --> advance as tolerated Code Status: Full Code ----- Plan discussed with attending physician Dr. Jyoti White MD PGY-1 Internal Medicine Attending Provider Attestation/Addendum Patient seen and examined with resident physician Dr. White. Note reviewed, agree with findings and recommendations. Patient with elevated liver enzymes. Pending the liver biopsy as CT showed multiple liver masses.
--- NOTE | 2025-03-04 17:40 | PD.RESCONSUL ---
HPI Data of Consult Requesting Physician: Doug Montes MD Admitting Provider: Doug Montes MD Attending Provider: Doug Montes MD Primary Care Provider: Doug Montes MD Consult Narrative Reason for consult: Elevated liver enzymes, multiple liver lesions History of present illness: Chief complaint:Generalized weakness History of present illness: HPI: A 79-year-old female patient with past medical history of hypertension, hyperlipidemia, CAD status post angioplasty and stent placement came to the ED after she was found to have elevated liver enzymes by her PCP. She reported for the past 1 month she has been feeling not good and she reported severe lower extremity weakness. She reported that she was unable to ambulate as usual to be, she also reported not feeling herself. Patient called her PCP Dr. Montes, in which blood work was done and showed elevated liver enzymes AST 222 ALT 111 alkaline phosphatase 437 and normal total bilirubin. Patient underwent liver ultrasound that showed multiple liver lesions. An abdominal and pelvic CT scan was done and showed significant hepatomegaly with multiple hepatic metastasis and also subcentimeter is bilateral nodules in both lungs. Her CEA level was 200. Surprisingly patient denied any nausea, vomiting, abdominal pain, distention, constipation, or bleeding per rectum. She reported that her bowel habits usually have a bowel movement 2 to 3 days which is her usual bowel habit with no change. GI team was consulted due to elevated liver enzyme 272.7, and multiple liver lesions most likely metastasis of unknown source and the possibility the need for colonoscopy. Home medications: Alprazolam, aspirin, atorvastatin, carvedilol, escitalopram PMH: As above PSX: No previous colonoscopies in the past or EGDs. PFX: Sister with history of throat cancer , brother with lung cancer. Social hx: Alcohol: Used to drink socially, no history of alcohol use disorder Tobacco: Occasionally stopped when she was in her 30s Illicit drugs: Denied Allergies: No known allergies cc:: cc: Doug Montes MD Review of Systems Review of Systems Systems Reviewed: All systems reviewed, normal except as documented Exam Vital Signs Temp Pulse Resp BP Pulse Ox O2 Del Method O2 Flow Rate 97.4 F 75 18 140/64 H 94 L Room Air 3 03/04/25 16:00 03/04/25 16:00 03/04/25 16:00 03/04/25 16:00 03/04/25 16:00 03/04/25 16:00 03/04/25 10:57 Narrative Exam GEN: AOx3, able to speak full sentences HEENT: NC/AC, PERRLA, oral mucosa moist, neck supple CVS: RRR, S1-S2 present, no murmurs appreciated RESP: CTAB GI: soft,non distended, non tender, NBS MSK: able to move all 4 limbs, however decreased power 3/5 both lower extremity no lower extremity edema SKIN: warm and dry EMERGENCY MEDICAL TECHNICIAN/DRIVER: CN II-XII and Sensation grossly intact. Results Labs 03/03/25 17:49 03/03/25 17:49 Labs: Short CBC 03/03/25 Range/Units 17:49 WBC 10.4 (3.6-11.0) Thou/mm3 Hgb 11.3 L (12.0-16.0) g/dL Hct 35.0 L (36.0-46.0) % Plt Count 363 (140-440) Thou/mm3 BMP 03/03/25 17:49 Sodium 138 Potassium 4.2 D Chloride 103 Carbon Dioxide 23.6 BUN 13 Creatinine 0.8 Glucose 110 H Calcium 9.1 Cardiac Enzymes 03/03/25 Range/Units 17:49 Total Creatine Kinase 514 H (34-171) U/L Troponin I < 0.020 (0.0-0.045) ng/mL Liver Function 03/03/25 Range/Units 17:49 Total Bilirubin 0.9 (0.3-1.2) mg/dL AST 230 H (0-34) U/L ALT 107 H (10-49) U/L Alkaline Phosphatase 463 H D (46-116) U/L Albumin 4.3 (3.4-4.8) gm/dL Urine 03/03/25 Range/Units 23:35 Urine Color Cancelled Urine Clarity Cancelled Urine pH Cancelled Ur Specific [place] Cancelled Urine Protein Cancelled Urine Glucose (UA) Cancelled Quality Measures Quality Measures VTE prophylaxis Advance care planning discussed with:: patient Medications Home Medications and Allergies Home Medications ?Medication ?Instructions ?Recorded ?Confirmed ?Type alprazolam 0.25 mg tablet 0.25 mg PO Q12H PRN anxiety 01/13/25 03/04/25 History aspirin 81 mg tablet,delayed 81 mg PO QDAY 01/13/25 03/04/25 History release (Adult Low Dose Aspirin) atorvastatin 80 mg tablet 80 mg PO QDAY 01/13/25 03/04/25 History carvedilol 3.125 mg tablet 3.125 mg PO DAILY 01/13/25 03/04/25 History escitalopram oxalate 10 mg tablet 10 mg PO DAILY 01/13/25 03/04/25 History Allergies Allergy/AdvReac Type Severity Reaction Status Date / Time No Known Allergies Allergy Verified 03/03/25 16:51 Visit Medications Alprazolam (Alprazolam 0.25 Mg Tablet) 0.25 mg PO Q12H PRN PRN Reason: ANXIETY Stop: 03/09/25 05:52 Carvedilol (Carvedilol 3.125 Mg Tablet) 3.125 mg PO DAILY JEROME Stop: 04/03/25 08:59 Last Admin: 03/04/25 09:13 Dose: 3.125 mg Escitalopram Oxalate (Escitalopram Oxalate 10 Mg Tablet) 10 mg PO DAILY JEROME Stop: 04/03/25 08:59 Last Admin: 03/04/25 09:13 Dose: 10 mg Sodium Chloride (Ns) 1,000 mls @ 70 mls/hr IV .[id number] JEROME Stop: 04/02/25 20:46 Last Admin: 03/03/25 21:07 Dose: 70 mls/hr Pantoprazole Sodium (Pantoprazole Inj 40 Mg Vial) 40 mg IVP QDAY JEROME Stop: 04/04/25 08:59 Discontinued Medications Fentanyl Citrate (Fentanyl Cit Inj 50 Mcg/Ml Amp 2ml) 75 mcg IVP X1 ONE Stop: 03/04/25 10:42 Last Admin: 03/04/25 10:46 Dose: 75 mcg Lactated Ringer's (Lactated Ringers) 1,000 mls @ 999 mls/hr IV .Q1H1M ONE Stop: 03/03/25 18:34 Last Infusion: 03/03/25 20:04 Dose: Infused Assessment & Plan Plan Summary:A 79-year-old female patient with past medical history of hypertension, hyperlipidemia, CAD status post angioplasty and stent placement came to the ED after she was found to have elevated liver enzymes by her PCP. She reported for the past 1 month she has been feeling not good and she reported severe lower extremity weakness. Patient was found to have multiple liver lesions and elevated CEA and liver enzymes. Assessment and plan #Multiple liver lesions #Hepatomegaly #Elevated liver enzymes Patient was complaining of generalized weakness for 1 month, denied any weight loss. She has 2 siblings diagnosed with cancer at the age of 60. Reported that she has also anorexia. Patient underwent liver ultrasound that showed multiple liver lesions. An abdominal and pelvic CT scan was done and showed significant hepatomegaly with multiple hepatic metastasis and also subcentimeter is bilateral nodules in both lungs. Her CEA level was 272.2. AFP was normal, surprisingly patient denied any nausea, vomiting, abdominal pain, distention, constipation, or bleeding per rectum. blood work was done and showed elevated liver enzymes AST 222 ALT 111 alkaline phosphatase 437 and normal total bilirubin Plan ? Patient will most likely need colonoscopy, ? Keep the patient n.p.o. start the patient on GoLytely ? Daily CBC monitor hemoglobin and transfuse as needed ? Consider consulting oncology ? Can continue aspirin 81 mg a medication #Pulmonary nodules #Hypertension #Coronary artery disease #Anxiety and depression Continue medication as per primary team Thank you for consultation, please do not hesitate to reach out if you have any question or concern. - Patient's plan and care discussed with my attending, Dr. Nagi Vyas MD Internal Medicine PGY-3 Attending Provider Attestation/Addendum Patient personally examined by me Laboratory data and the imaging studies reviewed Patient has elevated CEA level and multiple hepatic lesions on imaging studies There is an elevated CEA level of 272 Patient most likely has metastatic GI tract origin primarily colon carcinoma CT-guided biopsy is already being done Clear liquid diet GoLytely prep Schedule the patient for a colonoscopy to make sure colon is clean Primary has to be identified Will continue to follow the patient Thank you once again for the opportunity to participate in care of this patient
[2025-03-04] MEDS: SODIUM CHLORIDE 0.9% 1000 ML 1,000 ML 70 ML IV (19:26)
[2025-03-04] MEDS: NA SU/NAHCO3/KC/PEG (Golytely) 4,000 ML BTL 4000 ML PO (19:46)
[2025-03-05] VITALS (18 sets, daily range): BP systolic 115–164; BP diastolic 47–88; PULSE 62–80; RESP 16–22; TEMP 35.8–37.4; O2SAT 93–98
[2025-03-05 05:36] LABS: Basophils # (Auto) 0.0 Thou/mm3 (0.0-0.2); Basophils % (Auto) 0 % (0-2.5); Eosinophils # (Auto) 0.1 Thou/mm3 (0.0-0.5); Eosinophils % (Auto) 1 % (0-10); Hematocrit 29.6 % (36.0-46.0); Hemoglobin 9.6 g/dL (12.0-16.0); Immature Granulocytes Auto 0.02 Thou/mm3 (0.00-0.00); Lymphocytes # (Auto) 0.9 Thou/mm3 (1.0-4.8); Lymphocytes % (Auto) 12 % (10-50); Mean Corpuscular HGB Conc 32.4 g/dl (31.0-37.0); Mean Corpuscular Hemoglobin 29.4 pg (25.0-35.0); Mean Corpuscular Volume 91 fL (80-100); Monocytes # (Auto) 0.9 Thou/mm3 (0.0-0.8); Monocytes % (Auto) 12 % (0-12); Neutrophils # (Auto) 5.8 Thou/mm3 (1.8-7.7); Neutrophils % (Auto) 75 % (37-80); Nucleated Red Blood Cell # 0.00 Thou/mm3 (0.00-0.00); Nucleated Red Blood Cell % 0 /100 WBC (0); Platelet Count 258 Thou/mm3 (140-440); RDW Standard Deviation 45.5 fL (36.4-46.3); Red Blood Count 3.26 Miln/mm3 (4.00-5.20); White Blood Count 7.7 Thou/mm3 (3.6-11.0)
[2025-03-05 06:10] LABS: Alanine Aminotransferase 102 U/L (10-49); Albumin, Serum 3.5 gm/dL (3.4-4.8); Albumin/Globulin Ratio 1.6 (1.2-2.2); Alkaline Phosphatase 411 U/L (46-116); Anion Gap 10 (7-16); Aspartate Amino Transferase 218 U/L (0-34); BUN/Creatinine Ratio 18 Ratio (12-20); Bilirubin,Total 0.8 mg/dL (0.3-1.2); Blood Urea Nitrogen 11 mg/dL (9-23); Calcium 8.4 mg/dL (8.3-10.6); Calcium (Corrected) 8.8 mg/dL (8.5-10.1); Carbon Dioxide 25.0 mMol/L (20.0-31.0); Chloride 107 mMol/L (98-107); Creatinine (Component) 0.6 mg/dL (0.6-1.3); Estimated Creatinine Clearance 72.8 mL/min (>60); Globulin 2.2 gm/dL (2.3-3.5); Glucose 108 mg/dL (74-106); Magnesium 2.1 mg/dL (1.6-2.6); Osmolality,Calculated 283 (275-295); Phosphorous 2.0 mg/dL (2.4-5.1); Potassium 3.9 mMol/L (3.4-5.1); Sodium 142 mMol/L (136-145); Total Protein 5.7 gm/dL (5.7-8.2); eGFR > 60 See Note
[2025-03-05] MEDS: ESCITALOPRAM OXALATE 10 MG TABLET PO (08:07)
--- NOTE | 2025-03-05 11:14 | PC.SS ---
SS follow up note; Patient will possibly have a Colonoscopy. Patient will discharge home when medically cleared.
--- NOTE | 2025-03-05 11:21 | ESPR_ITS ---
Documentation for date of: 03/05/25 Subjective Subjective Interval history: 79-year-old female with past medical history significant for hypertension, hyperlipidemia, and coronary artery disease status post angioplasty and stent placement, who presented to the emergency department after being advised by her PCP, Dr. Montes, due to elevated liver enzymes and progressive generalized weakness. The patient reports feeling ?not good? for approximately one month, with increasing fatigue and bilateral lower extremity weakness. Over the past week, she noted worsening tiredness and shortness of breath with minimal exertion. She denies any chest pain, palpitations, cough, fever, chills, abdominal pain, nausea, vomiting, distention, jaundice, constipation, melena, hematochezia, or urinary symptoms. She describes normal bowel habits of 2?3 days between movements, which is unchanged from baseline. She has not noticed unintentional weight loss but does endorse decreased appetite and mild anorexia. She was evaluated by her PCP yesterday, where labs showed elevated AST 222, ALT 111, alkaline phosphatase 437, and normal bilirubin. A liver ultrasound revealed multiple hepatic lesions, prompting a CT abdomen/pelvis, which showed significant hepatomegaly with numerous hepatic metastases and subcentimeter pulmonary nodules bilaterally. In the ED, repeat labs demonstrated further elevation of LFTs (AST 238, ALT 107, Alk Phos 463) and CEA 272, with normal AFP, CA 125, and CA 15-3. Patient was started on IV fluids, GI was consulted, and she was admitted for further evaluation and management of multiple hepatic lesions concerning for metastatic disease of unknown primary. 03/05/2025: Seen the patient today, she is doing well and reports no new complaints. She completed her GoLYTELY prep overnight and is ready for colonoscopy today. Denies abdominal pain, nausea, or vomiting. Discussed with her in detail the CT findings of multiple hepatic lesions and pulmonary nodules and explained the next steps regarding colonoscopy and pending biopsy results. She expressed understanding and agreement with the plan. We will also test for Coccidioides (Valley Fever) to rule out infectious causes of pulmonary nodules. WBC 7.7, Hgb 9.6 (11.3 yesterday), Platelets 258, Na 142, K 3.9, Cr 0.6, BUN 11, AST 218, ALT 102, Alk Phos 411, Bilirubin 0.8. Exam Vital Signs Temp Pulse Resp BP Pulse Ox O2 Del Method O2 Flow Rate 97.8 F 72 16 138/55 H 96 Room Air 3 03/05/25 07:50 03/05/25 08:08 03/05/25 07:50 03/05/25 08:08 03/05/25 07:50 03/05/25 07:50 03/04/25 10:57 Narrative Exam General: Alert, oriented ?3, no acute distress, conversant. HEENT: Normocephalic, atraumatic; PERRL; oral mucosa moist; no icterus. Neck: Supple, no JVD, no thyromegaly. Cardiac: Regular rate and rhythm; no murmurs, rubs, or gallops. Lungs: Clear to auscultation bilaterally, no rales, wheezes, or rhonchi. Abdomen: Soft, nondistended, nontender; bowel sounds present. Extremities: No edema; peripheral pulses intact. Neuro: Cranial nerves II?XII grossly intact; strength 3/5 lower extremities, 5/5 upper; sensation intact. Skin: Warm, dry; no jaundice or rash. Objective Labs 03/06/25 04:16 03/06/25 04:16 Labs: Laboratory Results - last 24 hr 03/05/25 05:13 WBC 7.7 RBC 3.26 L Hgb 9.6 L Hct 29.6 L MCV 91 MCH 29.4 MCHC 32.4 RDW Std Deviation 45.5 Plt Count 258 D Neut % (Auto) 75 Lymph % (Auto) 12 [place] % (Auto) 12 Eos % (Auto) 1 Baso % (Auto) 0 Neut # (Auto) 5.8 Lymph # (Auto) 0.9 L [place] # (Auto) 0.9 H Eos # (Auto) 0.1 Baso # (Auto) 0.0 Immature Gran # (Auto) 0.02 H Absolute Nucleated RBC 0.00 Immature Gran % 0 Nucleated RBC % 0 Sodium 142 Potassium 3.9 Chloride 107 Carbon Dioxide 25.0 Anion Gap 10 BUN 11 Creatinine 0.6 Estim Creat Clear Calc 72.8 eGFR > 60 BUN/Creatinine Ratio 18 Glucose 108 H Calculated Osmolality 283 Calcium 8.4 Corrected Calcium 8.8 Phosphorus 2.0 L Magnesium 2.1 Total Bilirubin 0.8 AST 218 H ALT 102 H Alkaline Phosphatase 411 H D Total Protein 5.7 Albumin 3.5 D Globulin 2.2 L Albumin/Globulin Ratio 1.6 Quality Measures Quality Measures VTE prophylaxis Advance care planning discussed with:: patient and child Assessment & Plan Assessment Current Active Medications: Generic Name Dose Route Start Last Admin Trade Name Freq PRN Reason Stop Dose Admin Alprazolam 0.25 mg 03/04/25 05:53 Alprazolam 0.25 Mg Tablet PO 03/09/25 05:52 Q12H PRN ANXIETY Carvedilol 3.125 mg 03/04/25 09:00 03/05/25 08:08 Carvedilol 3.125 Mg Tablet PO 04/03/25 08:59 3.125 mg DAILY JEROME Administration Escitalopram Oxalate 10 mg 03/04/25 09:00 03/05/25 08:07 Escitalopram Oxalate 10 Mg Tablet PO 04/03/25 08:59 10 mg DAILY JEROME Administration Sodium Chloride 1,000 mls @ 70 mls/hr 03/03/25 20:47 03/04/25 19:26 Ns IV 04/02/25 20:46 70 mls/hr .[id number] JEROME Administration Pantoprazole Sodium 40 mg 03/05/25 09:00 03/05/25 08:10 Pantoprazole Inj 40 Mg Vial IVP 04/04/25 08:59 40 mg QDAY JEROME Administration Plan 79-year-old female with CAD, HTN, and HLD presenting with multifocal hepatic lesions and pulmonary nodules, elevated LFTs, and elevated CEA?highly concerning for metastatic malignancy of unknown primary. Currently stable, awaiting colonoscopy for further evaluation. # Multiple Hepatic Lesions / Hepatomegaly Likely metastatic disease; primary likely GI origin given markedly elevated CEA and classic liver + lung pattern. DDX: -Metastatic colorectal carcinoma (CEA markedly elevated; no prior colonoscopy; classic hepatic and pulmonary spread) -Pancreaticobiliary malignancy ? less likely (no obstructive pattern, normal CA 19-9) -Metastatic lung carcinoma ? possible with pulmonary nodules -Metastatic breast carcinoma ? less likely (CA 15-3 normal) -Cholangiocarcinoma ? possible but imaging favors discrete metastatic lesions Plan: * Proceed with colonoscopy today * Continue NPO until procedure complete * Await liver biopsy pathology results * Continue to trend CBC, CMP, INR daily * Hold atorvastatin due to hepatotoxicity risk * Continue IV fluids * Pain control PRN * Nutrition consult for appetite and support # Elevated Liver Enzymes Pattern consistent with cholestatic/mixed injury due to metastatic involvement. No evidence of obstructive jaundice or infection. Plan: * Continue to monitor LFT trends * Avoid hepatotoxic medications (hold statin for now) * Continue IV hydration * Monitor for signs of hepatic decompensation # Pulmonary Nodules CT chest shows multiple non-calcified nodules suggestive of early metastatic disease. Likely early metastatic disease vs. infectious cause. Plan: * Send Coccidioides serology # Anemia Hgb down to 9.6 from 11.3 yesterday. No signs of bleeding. Plan: * Monitor H/H daily * Transfuse PRN if Hgb <7 or symptomatic * Reassess post-procedure # Hypertension Stable, controlled on current meds. Plan: * Continue carvedilol * Monitor BP daily # Coronary Artery Disease s/p stent; currently stable, denies chest pain. Plan: * Hold aspirin for now * Hold statin due to LFT elevation * Monitor cardiac enzymes and telemetry # Anxiety and Depression Stable on escitalopram and alprazolam PRN. Plan: * Continue home meds * Supportive care Health Maintenance: Proceed with colonoscopy today Await biopsy results DVT prophylaxis: SCD GI prophylaxis: PPI daily Diet: NPO for colonoscopy prep --> advance as tolerated Code Status: Full Code ----- Plan discussed with attending physician Dr. Jyoti White MD PGY-1 Internal Medicine Attending Provider Attestation/Addendum Patient seen and examined with resident physician Dr. White. Note reviewed, agree with findings and recommendations. Patient with elevated liver enzymes. s/p liver biopsy as CT showed multiple liver masses.
--- NOTE | 2025-03-05 15:50 | PC.NURSE ---
pt off floor to [facility] for colonoscopy
[2025-03-05 16:04] LABS: Cocci Serology, IgM Negative (Negative)
[2025-03-05] MEDS: SODIUM CHLORIDE 0.9% 500 ML 500 ML 20 ML IV (17:00)
--- NOTE | 2025-03-05 17:39 | SUR.PHASEI ---
1735 patient is awake, alert, breathing unlabored, s/p colonoscopy under IV sedation, report received from Gwen WALLACE.
--- NOTE | 2025-03-05 18:09 | SUR.PHASEI ---
1750 patient is awake, alert, breathing unlabored, report given to Tommie RN, patient transferred to room 382
--- NOTE | 2025-03-05 18:18 | PC.NURSE ---
pt alert and oriented gcs 15 no signs of distress noted.
[2025-03-06] VITALS (7 sets, daily range): BP systolic 108–130; BP diastolic 50–63; PULSE 72–80; RESP 16–18; TEMP 35.9–37.5; O2SAT 93–95
[2025-03-06] MEDS: SODIUM CHLORIDE 0.9% 1000 ML 1,000 ML 70 ML IV (05:47)
[2025-03-06 05:59] LABS: Basophils # (Auto) 0.0 Thou/mm3 (0.0-0.2); Basophils % (Auto) 1 % (0-2.5); Eosinophils # (Auto) 0.3 Thou/mm3 (0.0-0.5); Eosinophils % (Auto) 3 % (0-10); Hematocrit 28.3 % (36.0-46.0); Hemoglobin 9.1 g/dL (12.0-16.0); Immature Granulocytes Auto 0.02 Thou/mm3 (0.00-0.00); Lymphocytes # (Auto) 1.4 Thou/mm3 (1.0-4.8); Lymphocytes % (Auto) 18 % (10-50); Mean Corpuscular HGB Conc 32.2 g/dl (31.0-37.0); Mean Corpuscular Hemoglobin 29.3 pg (25.0-35.0); Mean Corpuscular Volume 91 fL (80-100); Monocytes # (Auto) 0.9 Thou/mm3 (0.0-0.8); Monocytes % (Auto) 12 % (0-12); Neutrophils # (Auto) 5.1 Thou/mm3 (1.8-7.7); Neutrophils % (Auto) 66 % (37-80); Nucleated Red Blood Cell # 0.00 Thou/mm3 (0.00-0.00); Nucleated Red Blood Cell % 0 /100 WBC (0); Platelet Count 262 Thou/mm3 (140-440); RDW Standard Deviation 45.9 fL (36.4-46.3); Red Blood Count 3.11 Miln/mm3 (4.00-5.20); White Blood Count 7.7 Thou/mm3 (3.6-11.0)
[2025-03-06 06:33] LABS: Alanine Aminotransferase 108 U/L (10-49); Albumin, Serum 3.2 gm/dL (3.4-4.8); Albumin/Globulin Ratio 1.7 (1.2-2.2); Alkaline Phosphatase 366 U/L (46-116); Anion Gap 9 (7-16); Aspartate Amino Transferase 216 U/L (0-34); BUN/Creatinine Ratio 17 Ratio (12-20); Bilirubin,Total 0.6 mg/dL (0.3-1.2); Blood Urea Nitrogen 10 mg/dL (9-23); Calcium 8.1 mg/dL (8.3-10.6); Calcium (Corrected) 8.7 mg/dL (8.5-10.1); Carbon Dioxide 23.8 mMol/L (20.0-31.0); Chloride 110 mMol/L (98-107); Creatinine (Component) 0.6 mg/dL (0.6-1.3); Estimated Creatinine Clearance 72.8 mL/min (>60); Globulin 1.9 gm/dL (2.3-3.5); Glucose 98 mg/dL (74-106); Magnesium 2.1 mg/dL (1.6-2.6); Osmolality,Calculated 283 (275-295); Phosphorous 2.9 mg/dL (2.4-5.1); Potassium 3.6 mMol/L (3.4-5.1); Sodium 143 mMol/L (136-145); Total Protein 5.1 gm/dL (5.7-8.2); eGFR > 60 See Note
[2025-03-06] MEDS: ESCITALOPRAM OXALATE 10 MG TABLET PO (09:42)
--- NOTE | 2025-03-06 13:16 | ESPR_ITS ---
Documentation for date of: 03/06/25 Subjective Subjective Interval history: Interval history: 79-year-old female with past medical history significant for hypertension, hyperlipidemia, and coronary artery disease status post angioplasty and stent placement, who presented to the emergency department after being advised by her PCP, Dr. Montes, due to elevated liver enzymes and progressive generalized weakness. The patient reports feeling ?not good? for approximately one month, with increasing fatigue and bilateral lower extremity weakness. Over the past week, she noted worsening tiredness and shortness of breath with minimal exertion. She denies any chest pain, palpitations, cough, fever, chills, abdominal pain, nausea, vomiting, distention, jaundice, constipation, melena, hematochezia, or urinary symptoms. She describes normal bowel habits of 2?3 days between movements, which is unchanged from baseline. She has not noticed unintentional weight loss but does endorse decreased appetite and mild anorexia. She was evaluated by her PCP yesterday, where labs showed elevated AST 222, ALT 111, alkaline phosphatase 437, and normal bilirubin. A liver ultrasound revealed multiple hepatic lesions, prompting a CT abdomen/pelvis, which showed significant hepatomegaly with numerous hepatic metastases and subcentimeter pulmonary nodules bilaterally. In the ED, repeat labs demonstrated further elevation of LFTs (AST 238, ALT 107, Alk Phos 463) and CEA 272, with normal AFP, CA 125, and CA 15-3. Patient was started on IV fluids, GI was consulted, and she was admitted for further evaluation and management of multiple hepatic lesions concerning for metastatic disease of unknown primary. 03/05/2025: Seen the patient today, she is doing well and reports no new complaints. She completed her GoLYTELY prep overnight and is ready for colonoscopy today. Denies abdominal pain, nausea, or vomiting. Discussed with her in detail the CT findings of multiple hepatic lesions and pulmonary nodules and explained the next steps regarding colonoscopy and pending biopsy results. She expressed understanding and agreement with the plan. We will also test for Coccidioides (Valley Fever) to rule out infectious causes of pulmonary nodules. WBC 7.7, Hgb 9.6 (11.3 yesterday), Platelets 258, Na 142, K 3.9, Cr 0.6, BUN 11, AST 218, ALT 102, Alk Phos 411, Bilirubin 0.8. 03/06/2025 patient comfortable. Had a colonoscopy which was negative. Spoke to Dr. Lazar-Will do endoscopy tomorrow as a suspicion for metastatic liver disease seems to be very high based on the CAT scan results. Patient agreed. Review of Systems Review of Systems Narrative Review of Systems: CONSTITUTIONAL: Patient denies any fever, chills. HEENT: Denies any visual disturbances or hearing problems. CARDIOVASCULAR: Patient denies any chest pain, shortness of breath, swelling in the lower extremities. PULMONARY: Patient denies any shortness of breath, cough. GASTROINTESTINAL: Patient denies any abdominal pain, constipation, nausea, vomiting, diarrhea. GENITOURINARY: Patient denies any urinary symptoms of burning or frequency or hematuria, denies any form in the urine. SKIN: Denies any rash. MUSCULOSKELETAL: Denies any muscular skeletal problems of joint pains. NEUROLOGICAL: Denies any neurological problems of strokes, seizures or confusion. Denies any memory problems. PSYCHIATRIC: Denies any depression or anxiety. LYMPHATICS : No lymphadenopathy Exam Vital Signs Temp Pulse Resp BP Pulse Ox O2 Del Method O2 Flow Rate 36.1 C 80 18 127/78 94 L Room Air 3 03/07/25 12:00 03/07/25 12:00 03/07/25 12:00 03/07/25 12:00 03/07/25 12:00 03/07/25 12:00 03/07/25 00:00 Narrative Exam General: Alert, oriented ?3, no acute distress, conversant. HEENT: Normocephalic, atraumatic; PERRL; oral mucosa moist; no icterus. Neck: Supple, no JVD, no thyromegaly. Cardiac: Regular rate and rhythm; no murmurs, rubs, or gallops. Lungs: Clear to auscultation bilaterally, no rales, wheezes, or rhonchi. Abdomen: Soft, nondistended, nontender; bowel sounds present. Extremities: No edema; peripheral pulses intact. Neuro: Cranial nerves II?XII grossly intact; strength 3/5 lower extremities, 5/5 upper; sensation intact. Skin: Warm, dry; no jaundice or rash. Objective Labs 03/07/25 04:44 03/07/25 04:44 Labs: Laboratory Results - last 24 hr 03/07/25 04:44 WBC 7.4 RBC 2.88 L Hgb 8.4 L Hct 26.3 L MCV 91 MCH 29.2 MCHC 31.9 RDW Std Deviation 46.8 H Plt Count 178 D Neut % (Auto) 66 Lymph % (Auto) 17 [place] % (Auto) 12 Eos % (Auto) 4 Baso % (Auto) 0 Neut # (Auto) 4.8 Lymph # (Auto) 1.3 [place] # (Auto) 0.9 H Eos # (Auto) 0.3 Baso # (Auto) 0.0 Immature Gran # (Auto) 0.02 H Absolute Nucleated RBC 0.00 Immature Gran % 0 Nucleated RBC % 0 Sodium 144 Potassium 3.4 Chloride 108 H Carbon Dioxide 24.7 Anion Gap 11 BUN 11 Creatinine 0.6 Estim Creat Clear Calc 72.8 eGFR > 60 BUN/Creatinine Ratio 18 Glucose 103 Calculated Osmolality 286 Calcium 8.0 L Corrected Calcium 8.8 Phosphorus 2.9 Magnesium 1.9 Total Bilirubin 0.5 AST 253 H ALT 125 H Alkaline Phosphatase 349 H Total Protein 4.8 L Albumin 3.0 L Globulin 1.8 L Albumin/Globulin Ratio 1.7 Assessment & Plan Additional Assessment & Plan Additional Plan: 79-year-old female with CAD, HTN, and HLD presenting with multifocal hepatic lesions and pulmonary nodules, elevated LFTs, and elevated CEA?highly concerning for metastatic malignancy of unknown primary. Currently stable, awaiting colonoscopy for further evaluation. # Multiple Hepatic Lesions / Hepatomegaly Likely metastatic disease; primary likely GI origin given markedly elevated CEA and classic liver + lung pattern. DDX: -Metastatic colorectal carcinoma (CEA markedly elevated; no prior colonoscopy; classic hepatic and pulmonary spread) -Pancreaticobiliary malignancy ? less likely (no obstructive pattern, normal CA 19-9) -Metastatic lung carcinoma ? possible with pulmonary nodules -Metastatic breast carcinoma ? less likely (CA 15-3 normal) -Cholangiocarcinoma ? possible but imaging favors discrete metastatic lesions Plan: * Colonoscopy negative. Will go for endoscopy. * N.p.o. after midnight * Await liver biopsy pathology results * Continue to trend CBC, CMP, INR daily * Hold atorvastatin due to hepatotoxicity risk * Continue IV fluids * Pain control PRN * Nutrition consult for appetite and support # Elevated Liver Enzymes Pattern consistent with cholestatic/mixed injury due to metastatic involvement. No evidence of obstructive jaundice or infection. Plan: * Continue to monitor LFT trends * Avoid hepatotoxic medications (hold statin for now) * Continue IV hydration * Monitor for signs of hepatic decompensation # Pulmonary Nodules CT chest shows multiple non-calcified nodules suggestive of early metastatic disease. Likely early metastatic disease vs. infectious cause. Plan: * Send Coccidioides serology # Anemia Hgb down to 9.6 from 11.3 yesterday. No signs of bleeding. Plan: * Monitor H/H daily * Transfuse PRN if Hgb <7 or symptomatic * Reassess post-procedure # Hypertension Stable, controlled on current meds. Plan: * Continue carvedilol * Monitor BP daily # Coronary Artery Disease s/p stent; currently stable, denies chest pain. Plan: * Hold aspirin for now * Hold statin due to LFT elevation * Monitor cardiac enzymes and telemetry # Anxiety and Depression Stable on escitalopram and alprazolam PRN. Plan: * Continue home meds * Supportive care Health Maintenance: EGD in a.m. Await biopsy results DVT prophylaxis: SCD GI prophylaxis: PPI daily Diet: Cardiac diet Code Status: Full Code Quality - progress note Quality Measures Quality Measures: VTE prophylaxis Reason for Continued Stay Reason for Continued Stay: further monitoring
--- NOTE | 2025-03-06 18:19 | PD.IMPROG ---
Documentation for date of: 03/06/25 Subjective Subjective Interval history: Patient evaluated N.p.o. midnight tonight for upper endoscopy tomorrow make sure there is no gastric adenocarcinoma As you are still looking for a primary Exam Vital Signs Temp Pulse Resp BP Pulse Ox O2 Del Method O2 Flow Rate 97.5 F 72 18 118/61 95 Room Air 3 03/06/25 16:07 03/06/25 16:07 03/06/25 16:07 03/06/25 16:07 03/06/25 16:07 03/06/25 16:07 03/05/25 17:28 Objective Labs 03/06/25 04:16 03/06/25 04:16 Labs: Laboratory Results - last 24 hr 03/06/25 04:16 WBC 7.7 RBC 3.11 L Hgb 9.1 L Hct 28.3 L MCV 91 MCH 29.3 MCHC 32.2 RDW Std Deviation 45.9 Plt Count 262 Neut % (Auto) 66 Lymph % (Auto) 18 [place] % (Auto) 12 Eos % (Auto) 3 Baso % (Auto) 1 Neut # (Auto) 5.1 Lymph # (Auto) 1.4 [place] # (Auto) 0.9 H Eos # (Auto) 0.3 Baso # (Auto) 0.0 Immature Gran # (Auto) 0.02 H Absolute Nucleated RBC 0.00 Immature Gran % 0 Nucleated RBC % 0 Sodium 143 Potassium 3.6 Chloride 110 H Carbon Dioxide 23.8 Anion Gap 9 BUN 10 Creatinine 0.6 Estim Creat Clear Calc 72.8 eGFR > 60 BUN/Creatinine Ratio 17 Glucose 98 Calculated Osmolality 283 Calcium 8.1 L Corrected Calcium 8.7 Phosphorus 2.9 Magnesium 2.1 Total Bilirubin 0.6 AST 216 H ALT 108 H Alkaline Phosphatase 366 H D Total Protein 5.1 L Albumin 3.2 L Globulin 1.9 L Albumin/Globulin Ratio 1.7 Impressions Impression: Metastatic carcinoma to the liver Colonoscopy relatively negative save for diverticulosis and internal hemorrhoids Case discussed with the attending physician Endoscopy tomorrow morning Assessment & Plan Time Spent With Patient Time: Total time spent is greater than 50% in coordination of care (as documented) at patient's floor/unit and/or counseling patient:
[2025-03-07] VITALS (14 sets, daily range): BP systolic 100–151; BP diastolic 48–83; PULSE 65–81; RESP 12–19; TEMP 36.1–36.6; O2SAT 90–98; BMI 25.2
[2025-03-07 05:43] LABS: Basophils # (Auto) 0.0 Thou/mm3 (0.0-0.2); Basophils % (Auto) 0 % (0-2.5); Eosinophils # (Auto) 0.3 Thou/mm3 (0.0-0.5); Eosinophils % (Auto) 4 % (0-10); Hematocrit 26.3 % (36.0-46.0); Immature Granulocytes Auto 0.02 Thou/mm3 (0.00-0.00); Lymphocytes # (Auto) 1.3 Thou/mm3 (1.0-4.8); Lymphocytes % (Auto) 17 % (10-50); Mean Corpuscular HGB Conc 31.9 g/dl (31.0-37.0); Mean Corpuscular Hemoglobin 29.2 pg (25.0-35.0); Mean Corpuscular Volume 91 fL (80-100); Monocytes # (Auto) 0.9 Thou/mm3 (0.0-0.8); Monocytes % (Auto) 12 % (0-12); Neutrophils # (Auto) 4.8 Thou/mm3 (1.8-7.7); Neutrophils % (Auto) 66 % (37-80); Nucleated Red Blood Cell # 0.00 Thou/mm3 (0.00-0.00); Nucleated Red Blood Cell % 0 /100 WBC (0); Platelet Count 178 Thou/mm3 (140-440); RDW Standard Deviation 46.8 fL (36.4-46.3); Red Blood Count 2.88 Miln/mm3 (4.00-5.20); White Blood Count 7.4 Thou/mm3 (3.6-11.0)
[2025-03-07 05:59] LABS: Hemoglobin 8.4 g/dL (12.0-16.0)
[2025-03-07 06:07] LABS: Alanine Aminotransferase 125 U/L (10-49); Albumin, Serum 3.0 gm/dL (3.4-4.8); Albumin/Globulin Ratio 1.7 (1.2-2.2); Alkaline Phosphatase 349 U/L (46-116); Anion Gap 11 (7-16); Aspartate Amino Transferase 253 U/L (0-34); BUN/Creatinine Ratio 18 Ratio (12-20); Bilirubin,Total 0.5 mg/dL (0.3-1.2); Blood Urea Nitrogen 11 mg/dL (9-23); Calcium 8.0 mg/dL (8.3-10.6); Calcium (Corrected) 8.8 mg/dL (8.5-10.1); Carbon Dioxide 24.7 mMol/L (20.0-31.0); Chloride 108 mMol/L (98-107); Creatinine (Component) 0.6 mg/dL (0.6-1.3); Estimated Creatinine Clearance 72.8 mL/min (>60); Globulin 1.8 gm/dL (2.3-3.5); Glucose 103 mg/dL (74-106); Magnesium 1.9 mg/dL (1.6-2.6); Osmolality,Calculated 286 (275-295); Phosphorous 2.9 mg/dL (2.4-5.1); Potassium 3.4 mMol/L (3.4-5.1); Sodium 144 mMol/L (136-145); Total Protein 4.8 gm/dL (5.7-8.2); eGFR > 60 See Note
[2025-03-07] MEDS: ESCITALOPRAM OXALATE 10 MG TABLET PO (10:10)
--- NOTE | 2025-03-07 10:43 | ESPR_ITS ---
Documentation for date of: 03/07/25 Subjective Subjective Interval history: 79-year-old female with past medical history significant for hypertension, hyperlipidemia, and coronary artery disease status post angioplasty and stent placement, who presented to the emergency department after being advised by her PCP, Dr. Montes, due to elevated liver enzymes and progressive generalized weakness. The patient reports feeling ?not good? for approximately one month, with increasing fatigue and bilateral lower extremity weakness. Over the past week, she noted worsening tiredness and shortness of breath with minimal exertion. She denies any chest pain, palpitations, cough, fever, chills, abdominal pain, nausea, vomiting, distention, jaundice, constipation, melena, hematochezia, or urinary symptoms. She describes normal bowel habits of 2?3 days between movements, which is unchanged from baseline. She has not noticed unintentional weight loss but does endorse decreased appetite and mild anorexia. She was evaluated by her PCP yesterday, where labs showed elevated AST 222, ALT 111, alkaline phosphatase 437, and normal bilirubin. A liver ultrasound revealed multiple hepatic lesions, prompting a CT abdomen/pelvis, which showed significant hepatomegaly with numerous hepatic metastases and subcentimeter pulmonary nodules bilaterally. In the ED, repeat labs demonstrated further elevation of LFTs (AST 238, ALT 107, Alk Phos 463) and CEA 272, with normal AFP, CA 125, and CA 15-3. Patient was started on IV fluids, GI was consulted, and she was admitted for further evaluation and management of multiple hepatic lesions concerning for metastatic disease of unknown primary. 03/05/2025: Seen the patient today, she is doing well and reports no new complaints. She completed her GoLYTELY prep overnight and is ready for colonoscopy today. Denies abdominal pain, nausea, or vomiting. Discussed with her in detail the CT findings of multiple hepatic lesions and pulmonary nodules and explained the next steps regarding colonoscopy and pending biopsy results. She expressed understanding and agreement with the plan. We will also test for Coccidioides (Valley Fever) to rule out infectious causes of pulmonary nodules. WBC 7.7, Hgb 9.6 (11.3 yesterday), Platelets 258, Na 142, K 3.9, Cr 0.6, BUN 11, AST 218, ALT 102, Alk Phos 411, Bilirubin 0.8. 03/07/2025: Seen the patient today, she is doing well and has no new complaints. She remains hemodynamically stable and is scheduled for an upper endoscopy later today as part of the ongoing work-up for the primary source. She understands the plan and agrees. Appetite fair, denies abdominal pain, nausea, vomiting, or shortness of breath. Labs: Hgb 8.4 (from 9.1), Hct 26.3, Na 144, K 3.4, Cl 108, CO2 24.7, BUN 11, Cr 0.6, Ca 8.8, Phos 2.9, Mg 1.9, AST 253, ALT 125, Alk Phos 349, Albumin 3.0, Bili 0.8; Cocci IgM negative, IgG pending. Exam Vital Signs Temp Pulse Resp BP Pulse Ox O2 Del Method O2 Flow Rate 97.2 F 81 19 135/48 H 94 L Room Air 3 03/07/25 08:00 03/07/25 10:10 03/07/25 08:00 03/07/25 10:10 03/07/25 08:00 03/07/25 08:00 03/07/25 00:00 Narrative Exam General: Alert, oriented ?3, no acute distress, conversant. HEENT: Normocephalic, atraumatic; PERRL; oral mucosa moist; no icterus. Neck: Supple, no JVD, no thyromegaly. Cardiac: Regular rate and rhythm; no murmurs, rubs, or gallops. Lungs: Clear to auscultation bilaterally, no rales, wheezes, or rhonchi. Abdomen: Soft, nondistended, nontender; bowel sounds present. Extremities: No edema; peripheral pulses intact. Neuro: Cranial nerves II?XII grossly intact; strength 3/5 lower extremities, 5/5 upper; sensation intact. Skin: Warm, dry; no jaundice or rash. Objective Labs 03/07/25 04:44 03/07/25 04:44 Labs: Laboratory Results - last 24 hr 03/07/25 04:44 WBC 7.4 RBC 2.88 L Hgb 8.4 L Hct 26.3 L MCV 91 MCH 29.2 MCHC 31.9 RDW Std Deviation 46.8 H Plt Count 178 D Neut % (Auto) 66 Lymph % (Auto) 17 Troup % (Auto) 12 Eos % (Auto) 4 Baso % (Auto) 0 Neut # (Auto) 4.8 Lymph # (Auto) 1.3 Troup # (Auto) 0.9 H Eos # (Auto) 0.3 Baso # (Auto) 0.0 Immature Gran # (Auto) 0.02 H Absolute Nucleated RBC 0.00 Immature Gran % 0 Nucleated RBC % 0 Sodium 144 Potassium 3.4 Chloride 108 H Carbon Dioxide 24.7 Anion Gap 11 BUN 11 Creatinine 0.6 Estim Creat Clear Calc 72.8 eGFR > 60 BUN/Creatinine Ratio 18 Glucose 103 Calculated Osmolality 286 Calcium 8.0 L Corrected Calcium 8.8 Phosphorus 2.9 Magnesium 1.9 Total Bilirubin 0.5 AST 253 H ALT 125 H Alkaline Phosphatase 349 H Total Protein 4.8 L Albumin 3.0 L Globulin 1.8 L Albumin/Globulin Ratio 1.7 Quality Measures Quality Measures VTE prophylaxis Advance care planning discussed with:: patient Assessment & Plan Assessment Current Active Medications: Generic Name Dose Route Start Last Admin Trade Name Freq PRN Reason Stop Dose Admin Alprazolam 0.25 mg 03/04/25 05:53 03/06/25 20:54 Alprazolam 0.25 Mg Tablet PO 03/09/25 05:52 0.25 mg Q12H PRN Administration ANXIETY Carvedilol 3.125 mg 03/04/25 09:00 03/07/25 10:10 Carvedilol 3.125 Mg Tablet PO 04/03/25 08:59 3.125 mg DAILY JEROME Administration Escitalopram Oxalate 10 mg 03/04/25 09:00 03/07/25 10:10 Escitalopram Oxalate 10 Mg Tablet PO 04/03/25 08:59 10 mg DAILY JEROME Administration Pantoprazole Sodium 40 mg 03/05/25 09:00 03/07/25 10:10 Pantoprazole Inj 40 Mg Vial IVP 04/04/25 08:59 40 mg QDAY JEROME Administration Plan 79-year-old female with CAD, HTN, and HLD presenting with multifocal hepatic lesions and pulmonary nodules consistent with metastatic adenocarcinoma on liver biopsy, colonoscopy negative for colorectal source, awaiting upper endoscopy for further evaluation of GI primary. 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 Colonoscopy was negative EGD planned today for further evaluation. Plan: * Proceed with EGD today * Maintain NPO until procedure complete * Continue to trend CBC, CMP, and INR daily * Hgb 8.4 today, monitor and transfuse PRN if < 7.5 or symptomatic * Await final liver biopsy results and EGD findings * Oncology to review post-procedure for staging and management * Hold atorvastatin * Continue IV fluids and pain control PRN # Pulmonary Nodules CT chest shows multiple non-calcified nodules suggestive of early metastatic disease. Likely metastatic spread; infectious work-up in progress. Plan: * Coccidioides IgM negative, IgG pending * If negative, confirms metastatic etiology # Anemia Hgb 8.4 (from 9.1), likely anemia of chronic disease; no bleeding. Plan: * Monitor H/H daily * Transfuse PRN if < 7.5 or symptomatic # Elevated Liver Enzymes Persistent mixed pattern, secondary to hepatic metastases. Plan: * Trend CMP daily * Avoid hepatotoxic meds * Monitor for hepatic encephalopathy or jaundice # Hypertension Stable, controlled on current meds. Plan: * Continue carvedilol * Monitor BP daily # Coronary Artery Disease s/p stent; currently stable, denies chest pain. Plan: * Hold aspirin for now * Hold statin due to LFT elevation * Monitor cardiac enzymes and telemetry # Anxiety and Depression Stable on escitalopram and alprazolam PRN. Plan: * Continue home meds * Supportive care Health Maintenance: Proceed with EGD today Await final biopsy reads DVT prophylaxis: SCD GI prophylaxis: PPI daily Diet: NPO, advance as tolerated post procedure Code Status: Full Code ----- Plan discussed with attending physician Dr. Jyoti White MD PGY-1 Internal Medicine Attending Provider Attestation/Addendum Patient seen and examined with resident physician Dr. White. Note reviewed, agree with findings and recommendations. Pending EGD-if normal will plan for discharge today. Pathologist called patient liver biopsy came back metastatic adenocarcinoma-Primary unknown. Will follow- up with oncology as an outpatient.
[2025-03-07 14:40] LABS: Cocci Serology, IgG Negative (Negative)
--- NOTE | 2025-03-07 17:45 | SUR.PHASEI ---
1712: pt arrived to PACU via gurney drowsy but arouses to voice, breathing unlabored, report from Radha WALLACE 1735: pt tolerating ice chips without difficulty swallowing or n/v 1745: pt awake, alert, able to follow commands, breathing unlabored, report called to Michael WALLACE, pt transferred to room at this time.
--- NOTE | 2025-03-07 17:47 | PC.NURSE ---
per DR KRAMER, via telephone order, put patient for DISCHARGE.
--- NOTE | 2025-03-07 18:09 | PD.NEPHDC ---
Planned Discharge Date 03/07/25 DS: Providers Provider Date of admission: 03/03/25 20:52 Primary care physician: Doug Kraft MD Admitting Provider: Doug Kraft MD Attending Provider on Admission: Doug Kraft MD Consults: 03/04/25 10:09 Consult to Gastroenterology Routine Comment: Transaminitis/Hepatic mets Consulting Provider: Nain Lazar Attending Provider on DC: Doug Kraft MD Discharging Provider: Doug Kraft MD Discharge Diagnosis Problem List Completed Was Problem List Reviewed/Reconciled?: Yes Hospital Course Hospital Course Hospital course: Interval history: 79-year-old female with past medical history significant for hypertension, hyperlipidemia, and coronary artery disease status post angioplasty and stent placement, who presented to the emergency department after being advised by her PCP, Dr. Kraft, due to elevated liver enzymes and progressive generalized weakness. The patient reports feeling ?not good? for approximately one month, with increasing fatigue and bilateral lower extremity weakness. Over the past week, she noted worsening tiredness and shortness of breath with minimal exertion. She denies any chest pain, palpitations, cough, fever, chills, abdominal pain, nausea, vomiting, distention, jaundice, constipation, melena, hematochezia, or urinary symptoms. She describes normal bowel habits of 2?3 days between movements, which is unchanged from baseline. She has not noticed unintentional weight loss but does endorse decreased appetite and mild anorexia. She was evaluated by her PCP yesterday, where labs showed elevated AST 222, ALT 111, alkaline phosphatase 437, and normal bilirubin. A liver ultrasound revealed multiple hepatic lesions, prompting a CT abdomen/pelvis, which showed significant hepatomegaly with numerous hepatic metastases and subcentimeter pulmonary nodules bilaterally. In the ED, repeat labs demonstrated further elevation of LFTs (AST 238, ALT 107, Alk Phos 463) and CEA 272, with normal AFP, CA 125, and CA 15-3. Patient was started on IV fluids, GI was consulted, and she was admitted for further evaluation and management of multiple hepatic lesions concerning for metastatic disease of unknown primary. 03/05/2025: Seen the patient today, she is doing well and reports no new complaints. She completed her GoLYTELY prep overnight and is ready for colonoscopy today. Denies abdominal pain, nausea, or vomiting. Discussed with her in detail the CT findings of multiple hepatic lesions and pulmonary nodules and explained the next steps regarding colonoscopy and pending biopsy results. She expressed understanding and agreement with the plan. We will also test for Coccidioides (Valley Fever) to rule out infectious causes of pulmonary nodules. WBC 7.7, Hgb 9.6 (11.3 yesterday), Platelets 258, Na 142, K 3.9, Cr 0.6, BUN 11, AST 218, ALT 102, Alk Phos 411, Bilirubin 0.8. 03/07/2025 patient had a colonoscopy which was negative. Endoscopy did not show any mass. Wants to go home. Liver biopsy came back metastatic liver cancer with adenocarcinoma. She needs to follow-up with cancer center and Dr. Bartholomew in the outpatient setting. All the discharge instructions were given to the patient. Discharge diagnosis: Metastatic liver cancer with adenocarcinoma-primary unknown Elevated liver enzymes Anemia Hypertension Anxiety Status at Discharge Cognitive/behavioral status at discharge: stable Functional status at discharge: independent ambulation Overall status at discharge: patient is back to baseline Time Spent with Patient Time attestation: Total time spent providing and/or coordinating discharge services:32 min Exam Vital Signs Temp Pulse Resp BP Pulse Ox O2 Del Method O2 Flow Rate 36.5 C 65 13 109/53 L 95 Room Air 1 03/07/25 17:12 03/07/25 17:27 03/07/25 17:27 03/07/25 17:27 03/07/25 17:27 03/07/25 16:00 03/07/25 17:27 Narrative Exam GENERAL APPEARANCE: Patient seems to be comfortable, adequately hydrated and nourished. HEENT: EOMI, PERRLA NECK: Neck supple, no JVD or bruit CARDIOVASCULAR: Heart regular, no murmurs LUNGS/CHEST: Chest clear to auscultation. No rales, rhonchi, wheezing ABDOMEN: Soft, nontender, nondistended. No masses. Normal bowel sounds. EXTREMITIES: No edema, clubbing or cyanosis. SKIN: Skin exam normal without any rashes MUSCULOSKELETAL: Musculoskeletal exam normal PSYCHIATRIC: Normal mood, affect LYMPHATICS: No lymphadenopathy noted NEUROLOGICAL : No neurological deficits Discharge Plan Plan Patient Disposition: HOME (Self Care) Care Plan Goals: fu with dr. kraft in 1-2 weeks Prescriptions/Referrals Prescriptions/Med Rec: Continued alprazolam 0.25 mg tablet 0.25 mg PO Q12H PRN (Reason: anxiety) Patient Comments: TAKE 1 TABLET BY MOUTH TWICE A DAY NEEDED carvedilol 3.125 mg tablet 3.125 mg PO DAILY Rx Instructions: must administer with a meal/food aspirin [Adult Low Dose Aspirin] 81 mg tablet,delayed release (DR/EC) 81 mg PO QDAY escitalopram oxalate 10 mg tablet 10 mg PO DAILY Patient Comments: TAKE 1 TABLET BY MOUTH EVERY DAY Discontinued atorvastatin 80 mg tablet 80 mg PO QDAY Referrals: Doug Kraft MD [Primary Care Provider, Nephrology] Patient/Caregiver Discharge Instructions Print Language: Kinyarwanda Stand Alone Forms: Hilaria Award Info., Patient Portal Info Letter Discharge Order Discharge Orders: Discharge (Routine); Ordered 03/07/25 Ordered By: Doug Kraft
== END 2025-03-07 18:27 | disposition home or self-care (01) | DRG 437 ==
LOC: SERX 17:56 → SERHOLD 20:54 → S3SX 03-04 00:28
PROVIDERS: Nurse Practitioner Family; Radiology Diagnostic Radiology; Specialist; Admitting Provider Internal Medicine; Emergency Provider Family Medicine; PCP Internal Medicine; Visit Provider Internal Medicine
PROC: 0DJD8ZZ Inspection of Lower Intestinal Tract, Via Natural or Artificial Opening Endoscopic (ICD-10-PCS; CPT 45378; principal; 2025-03-05 14:30)
PROC: (CPT 43239; principal; 2025-03-07 18:00)
DX: C78.7 Secondary malignant neoplasm of liver and intrahepatic bile duct (principal); I10 Essential (primary) hypertension; E78.5 Hyperlipidemia, unspecified; Z95.5 Presence of coronary angioplasty implant and graft; F41.9 Anxiety disorder, unspecified; F32.A Depression, unspecified; Z87.891 Personal history of nicotine dependence; R16.0 Hepatomegaly, not elsewhere classified; K57.30 Diverticulosis of large intestine without perforation or abscess without bleeding; K64.8 Other hemorrhoids; D64.9 Anemia, unspecified; I25.10 Atherosclerotic heart disease of native coronary artery without angina pectoris; Z79.82 Long term (current) use of aspirin; Z79.899 Other long term (current) drug therapy
CPT/HCPCS: 36415; 71045; 71250; 74177; 76705; 77012; 80053; 80061; 80074; 81001; 82105; 82306; 82378; 82550; 82607; 83036; 83690; 83735; 83880; 84100; 84443; 84484; 84550; 85025; 85610; 85730; 86300; 86304; 86331; 86635; 87400; 87811; 93005; 96360; 96361; 99284; A4649; J1200; J2250; J2470; J3010; J7030; J7120; J7999; Q9967; A9270

== ENCOUNTER 2025-03-16 08:48 | Outpatient (RCR) | payer MEDICARE, BC, SELFPAY ==
--- NOTE | 2025-03-16 12:56 | CTCCONSULT_ITS ---
Patient: JUVE DE : 1945 MR#: [id number] Page 3 of 5 CONSULTATION NOTE DATE OF CONSULTATION: 03/16/2025 NAME: JUVE DE ACCOUNT: [id number] : 1945 AGE: 79 REFERRING PHYSICIAN: Doug Montes MD PRIMARY PHYSICIAN: Doug Montes MD REASON FOR VISIT: Metastatic cancer to the liver likely GI primary ONCOLOGY HISTORY: DIAGNOSIS: Malignant neoplasm of ill-defined sites within the digestive system [ICD10] C26.9 DATE OF DIAGNOSIS: 03/04/2025 STAGE/TNM: 4 likely colon cancer TREATMENT HISTORY: Care?Plan Start?Date Cycle Day Intent mFOLFOX-6?+?Bevacizumab?5?mg/kg 03/16/2025 1 14 Palliative HISTORY OF PRESENT ILLNESS: 79-year-old female 03/03/2025 ALT was found showed 16.7 cm liver with the multiple liver lesions largest in the left lobe 7.7 x 5.6 x 7 cm 03/03/2025 CT scan3 mm pulmonary nodule left lower lobe 4 mm pulmonary nodule right lower lobe Multiple liver lesions including 5 cm mass in the left lobe The liver is enlarged No pancreatic or adrenal mass Aorta is heavily calci?ed no aneurysmal dilatation Trace ascites No bowel obstruction Bladder intact No diverticulitis ?gg??a mmwg?is L4 on L5 SVH Patient name: ISHMAEL NAYAK IMPRESSION: Subcentimeter bilateral lower lobe pulmonary nodules Signi?cant hepatomegaly with multiple hepatic metastases No bowel obstruction Trace ascltes 03/04/2025 EGD and colonoscopy negative OTHER MEDICAL HISTORY/CONDITIONS: Metastatic adenocarcinoma of liver -dx03/04/2025 MT - 2019 Hyperlipidemia 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- [employer] Education?Level:?Completed High School Marital?Status:? Tobacco Use:?Smokes rarely-socially 2-3 times/year ETOH Use:?Quit 1 year ago - Socailly only prior Drug?Note:?Denies Social?History?Note:?Lives?with? 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 ALPRAZolam - 0.25 mg 1 tab As directed 2. aspirin - 81 mg 1 tab Continuously 3. BenadryL - 25 mg 1 tab Every day before sleep 4. carvedilol - 3.125 mg 1 tab Daily 5. escitalopram oxalate - 10 mg 1 tab Daily 6. prednisoLONE acetate (PF) - 1 % 1 drops As directed Medications Last Reconciled by Irma Garibay RN on 03/16/2025 ALLERGIES: No Known Drug Allergies REVIEW OF SYSTEMS: A complete 14-point review of systems was performed and is negative except as noted in interval history. PHYSICAL EXAMINATION: VITAL SIGNS: Temperature?99.3, B/P?97/66, Height?63?inches, Oxygen?Saturation?94% Weight?151?lbs PAIN: 1 - Between no and mild pain ECOG Performance Status: 2 - Symptomatic; ambulatory; capable of self-care; >50% of waking hrs. not in bed GENERAL APPEARANCE: Appears well, in no apparent distress, appropriately interactive. HEENT: Normocephalic, no temporal wasting, normal conjunctiva, no scleral icterus, normal hearing, lips without lesions, neck normal range of motion. CARDIOVASCULAR: Not assessed. PULMONARY: Normal respiratory effort, no respiratory distress or use of accessory muscles, speaking in full sentences, no tachypnea. EXTREMITIES: Edema extending to the thighs. SKIN: Normal skin appearance. NEUROLOGIC: Alert and oriented x4. PSHYCHIATRIC: Appropriate affect, mood normal, behavior normal, intact thought and speech. Abdomen distended bilateral lower extremities edema LABORATORY DATA: I have personally reviewed and interpreted each of Ms. De?s relevant lab tests, abnormal findings are below: Date ASSESSMENT/PLAN: Metastatic adenocarcinoma of GI origin Large metastatic lesions in the liver Patient also developing ascites and bilateral pedal edema Patient also have extensive cardiac history and is on Coreg aspirin and statin status post stenting to RCA For anxiety patient takes citalopram and Xanax and also had cornea transplant in 2022 Patient now comes with large lesion in the liver which is proven to be coming from GI EGD and colonoscopy was negative Colonoscopy showed no lesion in the colon but area between the anus and cecum was not well-prepped and not visualized as per colonoscopy report EGD was negative Based on Ms. De need urgent treatment to shrink the lesions in the liver Will start her on FOLFOX Port catheter placement Will get PET CT scan to see extent of disease and possibly find a primary Cancer type ID Chemo education Iron studies B12 folic acid Start chemotherapy NEPTALI ORDERS: Order # Description [id number] Comprehensive Metabolic Panel - 12 + CBC with Auto Diff + Hep A, B and C panel [id number] AFP [id number] Initial PET/CT of Skull to Mid-Thigh [id number] PICC Line Insertion - Venous [id number] Paracentesis [id number] Infusion 6 Hours [id number] Comprehensive Metabolic Panel - 12 + CBC with Auto Diff + CEA [id number] Follow Up 4 Week [id number] Foundation One CDX + PD-L1 staining [id number] Discontinue CIV Pump [id number] Comprehensive Metabolic Panel + CBC with Auto Diff + CEA + Urinalysis, Automated with Microscopy [id number] Follow Up Appointment [id number] Infusion 6 Hours [id number] Discontinue CIV Pump [id number] Comprehensive Metabolic Panel + CBC with Auto Diff + CEA + Urinalysis, Automated with Microscopy [id number] Follow Up Appointment [id number] Infusion 6 Hours [id number] Discontinue CIV Pump [id number] Comprehensive Metabolic Panel + CBC with Auto Diff + CEA + Urinalysis, Automated with Microscopy [id number] Follow Up Appointment [id number] Infusion 6 Hours [id number] Discontinue CIV Pump [id number] Comprehensive Metabolic Panel + CBC with Auto Diff + CEA + Urinalysis, Automated with Microscopy [id number] Follow Up Appointment [id number] Infusion 6 Hours [id number] Discontinue CIV Pump [id number] Comprehensive Metabolic Panel + CBC with Auto Diff + CEA + Urinalysis, Automated with Microscopy [id number] Follow Up Appointment [id number] Infusion 6 Hours [id number] Discontinue CIV Pump [id number] Comprehensive Metabolic Panel + CBC with Auto Diff + CEA + Urinalysis, Automated with Microscopy [id number] Follow Up Appointment [id number] Infusion 6 Hours [id number] Discontinue CIV Pump [id number] Comprehensive Metabolic Panel + CBC with Auto Diff + CEA + Urinalysis, Automated with Microscopy [id number] Follow Up Appointment [id number] Infusion 6 Hours [id number] Discontinue CIV Pump [id number] Comprehensive Metabolic Panel + CBC with Auto Diff + CEA + Urinalysis, Automated with Microscopy [id number] Follow Up Appointment [id number] Infusion 6 Hours [id number] Discontinue CIV Pump [id number] Comprehensive Metabolic Panel + CBC with Auto Diff + CEA + Urinalysis, Automated with Microscopy [id number] Follow Up Appointment [id number] Infusion 6 Hours [id number] Discontinue CIV Pump [id number] Comprehensive Metabolic Panel + CBC with Auto Diff + CEA + Urinalysis, Automated with Microscopy [id number] Follow Up Appointment [id number] Infusion 6 Hours [id number] Discontinue CIV Pump [id number] Comprehensive Metabolic Panel + CBC with Auto Diff + CEA + Urinalysis, Automated with Microscopy [id number] Follow Up Appointment [id number] Infusion 6 Hours [id number] Discontinue CIV Pump [id number] Comprehensive Metabolic Panel + CBC with Auto Diff + CEA + Urinalysis, Automated with Microscopy [id number] Follow Up Appointment RETURN TO CLINIC: I reviewed the diagnosis, prognosis, and recommended treatment/procedure options with the patient (and/or their legal public service representative), including the potential benefits, risks, side effects and alternative therapies. We also discussed the option of no treatment and the possibility of clinical trial participation, if applicable. All questions were addressed, and they demonstrated understanding. They provided informed consent to proceed with the proposed plan of care. BILLING AND COMPLIANCE: I reviewed external records from providers outside my specialty as summarized above. I spent a total of 50 minutes on this patient?s care on the day of their visit excluding time spent related to any billed procedures. This time includes time spent with the patient as well as time spent documenting in the medical record, reviewing patients records and tests, obtaining history, placing orders, communicating with other healthcare professionals, counseling the patient, family or caregiver, and/or care coordination for the diagnoses above. Electronically Signed by: Ovidio Cobb MD T: 12:54 PM CC: PCP: Doug Montes Referring: Doug Montes This document was completed utilizing speech recognition software. Grammatical errors, random word insertions, pronoun errors, and incomplete sentences are an occasional consequence of this system due to software limitations, ambient noise, and hardware issues. Any formal questions or concerns about the content, text or information contained within the body of this dictation should be directly addressed to the provider for clarification.
== END 2025-03-25 23:59 | disposition home or self-care (01) ==
LOC: SCTC 08:48
PROVIDERS: PCP Internal Medicine; Referring Provider Internal Medicine; Visit Provider Internal Medicine Hematology & Oncology
DX: C78.7 Secondary malignant neoplasm of liver and intrahepatic bile duct (principal); C26.9 Malignant neoplasm of ill-defined sites within the digestive system; R18.8 Other ascites; I25.2 Old myocardial infarction; Z79.82 Long term (current) use of aspirin
CPT/HCPCS: 36415; 80053; 80074; 82105; 82378; 85025; 99213; G0463

== ENCOUNTER → 2025-03-16 | Outpatient (CLI) | payer MEDICARE, BC, SELFPAY ==
[2025-03-16 14:35] LABS: Basophils # (Auto) 0.1 Thou/mm3 (0.0-0.2); Basophils % (Auto) 1 % (0-2.5); Eosinophils # (Auto) 0.1 Thou/mm3 (0.0-0.5); Eosinophils % (Auto) 1 % (0-10); Hematocrit 33.2 % (36.0-46.0); Hemoglobin 10.4 g/dL (12.0-16.0); Immature Granulocytes Auto 0.02 Thou/mm3 (0.00-0.00); Lymphocytes # (Auto) 1.7 Thou/mm3 (1.0-4.8); Lymphocytes % (Auto) 18 % (10-50); Mean Corpuscular HGB Conc 31.3 g/dl (31.0-37.0); Mean Corpuscular Hemoglobin 28.0 pg (25.0-35.0); Mean Corpuscular Volume 89 fL (80-100); Monocytes # (Auto) 1.0 Thou/mm3 (0.0-0.8); Monocytes % (Auto) 10 % (0-12); Neutrophils # (Auto) 6.7 Thou/mm3 (1.8-7.7); Neutrophils % (Auto) 70 % (37-80); Nucleated Red Blood Cell # 0.00 Thou/mm3 (0.00-0.00); Nucleated Red Blood Cell % 0 /100 WBC (0); Platelet Count 436 Thou/mm3 (140-440); RDW Standard Deviation 48.4 fL (36.4-46.3); Red Blood Count 3.72 Miln/mm3 (4.00-5.20); White Blood Count 9.5 Thou/mm3 (3.6-11.0)
[2025-03-16 14:49] LABS: Alanine Aminotransferase 125 U/L (10-49); Albumin, Serum 4.1 gm/dL (3.4-4.8); Albumin/Globulin Ratio 1.8 (1.2-2.2); Alkaline Phosphatase 524 U/L (46-116); Anion Gap 11 (7-16); Aspartate Amino Transferase 234 U/L (0-34); BUN/Creatinine Ratio 26 Ratio (12-20); Bilirubin,Total 1.4 mg/dL (0.3-1.2); Blood Urea Nitrogen 23 mg/dL (9-23); Calcium 9.0 mg/dL (8.3-10.6); Calcium (Corrected) 9.0 mg/dL (8.5-10.1); Carbon Dioxide 24.8 mMol/L (20.0-31.0); Chloride 103 mMol/L (98-107); Creatinine (Component) 0.9 mg/dL (0.6-1.3); Globulin 2.3 gm/dL (2.3-3.5); Glucose 110 mg/dL (74-106); Osmolality,Calculated 282 (275-295); Potassium 4.0 mMol/L (3.4-5.1); Sodium 139 mMol/L (136-145); Total Protein 6.4 gm/dL (5.7-8.2); eGFR > 60 See Note
[2025-03-16 15:25] LABS: AFP Non-Pregnant 7.00 ng/mL (<8.10); Carcinoembryonic Antigen 337.1 ng/mL (0.0-5.0); Hepatitis A Antibody IgM Non Reactive (Non React); Hepatitis B Core Antibody IgM Non Reactive (Non React); Hepatitis B Surface Antigen Non Reactive (Non React); Hepatitis C Antibody Non Reactive (Non React)
== END | disposition home or self-care (01) ==
PROVIDERS: PCP Internal Medicine; Referring Provider Internal Medicine Hematology & Oncology; Visit Provider Internal Medicine Hematology & Oncology
DX: C26.9 Malignant neoplasm of ill-defined sites within the digestive system (principal)
CPT/HCPCS: 36415; 80053; 80074; 82105; 82378; 85025

== ENCOUNTER → 2025-04-06 | Outpatient (CLI) | payer MEDICARE, BC, SELFPAY ==
[2025-04-04 10:23] LABS: Basophils # (Auto) 0.1 Thou/mm3 (0.0-0.2); Basophils % (Auto) 1 % (0-2.5); Eosinophils # (Auto) 0.1 Thou/mm3 (0.0-0.5); Eosinophils % (Auto) 1 % (0-10); Hematocrit 29.5 % (36.0-46.0); Hemoglobin 9.4 g/dL (12.0-16.0); Immature Granulocytes Auto 0.03 Thou/mm3 (0.00-0.00); Lymphocytes # (Auto) 2.1 Thou/mm3 (1.0-4.8); Lymphocytes % (Auto) 21 % (10-50); Mean Corpuscular HGB Conc 31.9 g/dl (31.0-37.0); Mean Corpuscular Hemoglobin 25.9 pg (25.0-35.0); Mean Corpuscular Volume 81 fL (80-100); Monocytes # (Auto) 1.1 Thou/mm3 (0.0-0.8); Monocytes % (Auto) 11 % (0-12); Neutrophils # (Auto) 6.8 Thou/mm3 (1.8-7.7); Neutrophils % (Auto) 67 % (37-80); Nucleated Red Blood Cell # 0.00 Thou/mm3 (0.00-0.00); Nucleated Red Blood Cell % 0 /100 WBC (0); Platelet Count 317 Thou/mm3 (140-440); RDW Standard Deviation 52.6 fL (36.4-46.3); Red Blood Count 3.63 Miln/mm3 (4.00-5.20); White Blood Count 10.2 Thou/mm3 (3.6-11.0)
[2025-04-04 10:24] LABS: INR 1.2 (0.9-1.3); Partial Thromboplastin Time 25.1 Seconds (22.0-36.0); Prothrombin Time 12.7 Seconds (9.0-12.2)
[2025-04-04 14:07] VITALS: BMI 27.6
[2025-04-06] VITALS (12 sets, daily range): BP systolic 103–140; BP diastolic 47–63; PULSE 65–85; RESP 12–21; TEMP 36.5–36.8; O2SAT 93–100
--- NOTE | 2025-04-06 09:00 | XR_ITS ---
Examination: IR venous implantation Port-A-Cath Ultrasound-guided needle placement right internal jugular vein. Fluoroscopy AP Chest, portable single view Exam date and time: April 06, 2025, 0932 hours INDICATIONS: Diagnosis malignant neoplasm of ill-defined sites, hepatic lesions pulmonary nodules Informed consent provided Technique: A timeout was completed, verifying correct patient, procedure, site, positioning, and special equipment if applicable The patient was placed in a dependent position appropriate for central line placement based on the vein to be cannulated. The patient's right neck was prepped and draped in sterile fashion. Maximum Sterile Barrier Technique used including cap, mask, sterile gown, sterile gloves, and sterile full body drape. If ultrasound technique used: sterile gel and sterile probe covers. Hand Hygiene performed using proper scrub, soap and water, or alcohol-based hand rub. Site right portable apparatus utilized to confirm patency of the right internal jugular vein Utilizing ultrasonographic guidance successful 21-gauge needle puncture right internal jugular vein Ultrasound images were recorded and stored. Subcutaneous pocket formed in the upper right chest with blunt dissection 8 [place] 19 cm Port-A-Cath line placed through the venous sheath into the superior vena cava in proper position under fluoroscopic guidance, connected to the Port-A-Cath reservoir and placed in the subcutaneous pocket Subcutaneous pocket sutured close The attending radiologist was present for the entire procedure Estimated blood loss 3 cc. Findings: Under fluoroscopy, the tip of the Port-A-Cath is in good position in the vena cava. Portable chest x-ray, post line placement, as ordered. Impression: Successful ultrasound-guided needle placement right internal jugular vein. IR venous implantation Port-A-Cath percutaneous. Fluoroscopy 0.4-minute radiation dose 1.94 mGy 1 spot fluoroscopic chest film. AP portable chest completion procedure demonstrates satisfactory position Port-A-Cath tip SVC. May use Port-A-Cath
[2025-04-06] MEDS: ONDANSETRON INJ 2 MG/ML INJ 2 ML 4 MG IV (09:47)
[2025-04-06] MEDS: SODIUM CHLORIDE 0.9% 500 ML 500 ML 150 ML IV (09:52)
[2025-04-06] MEDS: HEPARIN SOD LOCK SYR 100 UNIT/ML 500 UNIT STFIELD (10:11)
[2025-04-06] MEDS: fentaNYL CIT INJ 50 mCg/ML AMP 2ML 75 MCG IVP (10:25)
[2025-04-06] MEDS: LIDOCAINE INJ PF 1% 30 ML VIAL 10 ML INFL (10:27)
[2025-04-06] MEDS: LIDOCAINE 1% W/EPI 1:100K 20 ML VIAL 7 ML INFL (10:28)
== END | disposition home or self-care (01) ==
PROVIDERS: Radiology Diagnostic Radiology; PCP Internal Medicine; Referring Provider Internal Medicine Hematology & Oncology; Visit Provider Internal Medicine Hematology & Oncology
DX: C78.7 Secondary malignant neoplasm of liver and intrahepatic bile duct (principal); C26.9 Malignant neoplasm of ill-defined sites within the digestive system
CPT/HCPCS: 36571; 36415; 76937; 77001; 85025; 85610; 85730; A4649; C1769; C1788; C1894; J0689; J0690; J1642; J2405; J3010; J3490; J7050; J7999

== ENCOUNTER 2025-04-12 12:43 | Inpatient (IN) | payer MEDICARE, BC, SELFPAY ==
[2025-04-12 12:45] VITALS: PULSE 84; RESP 18; O2SAT 99; BMI 26.5
--- NOTE | 2025-04-12 12:46 | EKG_ITS ---
[facility] Test Date: 2025-04-12 Pat Name: JUVE KELLER Department: Room: - Gender: Female Campaign Manager: : 1945 Requested By: Fredi Bob Order Number: [id number] Reading MD: Fredi Bob Measurements Intervals [place] Rate: 79 P: 37 IN: 134 QRS: 4 QRSD: 79 T: 34 QT: 370 QTc: 426 Interpretive Statements SINUS RHYTHM NONSPECIFIC ST ELEVATION [0.05+ mV ST ELEVATION] Compared to ECG 03/03/2025 17:34:56 ST (T wave) deviation now present Myocardial infarct finding no longer present /store/S0/[id number]/[id number].pdf
--- NOTE | 2025-04-12 12:50 | PD.EDADULT ---
ED General RME/HPI General Chief complaint: Weakness Stated complaint: WEAKNESS Time Seen by Provider: 04/12/25 12:45 Arrival date/time: 04/12/25 12:43 CC: Weakness HPI patient has a progressive worsening weakness over the last 3 weeks. Patient was recently diagnosed with liver cancer , but has not had a biopsy to determine what the specific source is. The patient is seen by Dr. Montes and has had a workup thus far including GI with biopsies that are negative. Patient was informed by family members and friends that she was beginning to look yellow , and with the increased fatigue. The patient called 911. Patient states she is now so weak she is unable to roll over. Patient is awake alert has no specific pain. Is not sure what she takes due to taking 5 different medications. EMS reports stable vital signs. Patient states that weakness has become so progressive she stopped walking approximately 10 days ago. Prior to that was approximately 2 weeks of being able to walk with a walker to her bathroom and back. Related Data Home Medications ?Medication ?Instructions ?Recorded ?Confirmed alprazolam 0.25 mg tablet 0.5 mg PO Q12H PRN anxiety 01/13/25 04/06/25 aspirin 81 mg tablet,delayed 81 mg PO QDAY 01/13/25 04/06/25 release (Adult Low Dose Aspirin) Held on 04/06/25. Instructions: Resume on 04/09/25. carvedilol 3.125 mg tablet 3.125 mg PO DAILY 01/13/25 04/06/25 escitalopram oxalate 10 mg tablet 10 mg PO DAILY 01/13/25 04/06/25 diphenhydramine HCl 25 mg capsule 25 mg PO QHSPRN PRN ALLERGIES 04/06/25 04/06/25 (Allergy (diphenhydramine)) prednisolone acetate 1 % eye drp ophthalmic (eye) 04/06/25 drops,suspension Allergies Allergy/AdvReac Type Severity Reaction Status Date / Time No Known Allergies Allergy Verified 04/12/25 12:45 Review of Systems Review of Systems Narrative Review of Systems: GEN: No fever, no chills, no weight loss EYES: No discharge, no visual changes, no pain HEENT: No ear pain, no congestion, no sore throat PULM: No shortness of breath, no cough, no congestion CV: No chest pain, no dyspnea on exertion, no palpitations GI: No nausea, no vomiting, no diarrhea, no pain, no constipation : No frequency, no urgency, no dysuria MUSC/SKEL: No joint pain, no back pain SKIN: No rash PSYCH: No hallucinations, no depression HEME/LYMPH: No easy bleeding or bruising tendencies NEURO: + weakness, no headache Past Medical History Past Medical History NEUROLOGIC: Negative Neurological Disorders or Seizures CARDIAC: Positive Cardiac Disorders and Myocardial Infarction; Negative Cardiac Arrhythmia, Atrial Fibrillation, Hypercholesterolemia, Congestive Heart Failure, Hypertension or Hypotension RESPIRATORY: Negative Chronic Obstructive Pulmonary Disease (COPD) or Asthma GASTROINTESTINAL: Negative Gastrointestinal Disorders GENITOURINARY: Negative Genitourinary Disorders or Renal Disease MUSCULOSKELETAL: Positive Musculoskeletal Disorders ENDOCRINE: Negative Diabetes Mellitus Type 1, Diabetes Mellitus Type 2, Hyperthyroidism, Hypothyroidism or Parathyroid Disease HEMATOLOGIC: Negative Blood Disorders or Sickle Cell Disease PSYCHO/SOCIAL: Positive Depression and Anxiety OTHER HISTORY: Negative Blood Transfusions, Blood Transfusion Reaction, Anesthesia Reactions or Cancer Surgical History SURGICAL: Positive Cardiac Catheterization; Negative Pacemaker Social History SMOKING STATUS: Never smoker ED Exam Narrative Physical exam: [General: Sallow, not in any acute distress Head normocephalic HEENT: Eyes pupils are PERRLA EOMs are intact sclera's are icteric, mouth pink dry membranes uvula is midline swallow symmetrical phonation is normal. All other subsystems HEENT are within acceptable limits Neck is supple nontender Chest equal chest rise nontender to palpation Respiratory: Clear to auscultation no wheezes crackles or rubs CV: Rate rhythm is regular no murmurs rubs or clicks Abdomen is distended secondary to body habitus soft nontender no masses positive bowel sounds all 4 quadrants Back: No CVA tenderness no spinous process tenderness from cervical spine thoracic and lumbar spine Skin: Jaundice, port placement dressing site in the right anterior upper chest at the base of the neck is intact. No surrounding erythema or edema. Otherwise skin is intact no petechiae rash induration ulceration or crepitus Extremities: Moving all extremity against resistance cap refill less than 2 seconds neurosensory intact Neuro: Awake alert oriented x3 Glascow coma 15 no focal deficits] Course Course Course Narrative: Patient's laboratory findings and imaging discussed with Dr. Montes, PCP who is agreed to accept the patient for admission for elevated ammonia level and weakness. Quality Measures none Orders Category Date Time Status EKG (ED ONLY) *Do not use* NOW Care 04/12/25 12:46 Completed Saline [Insert IV] NOW Care 04/12/25 12:47 Active Saline [Insert IV] NOW Care 04/12/25 14:19 Active EKG (ED Only) Stat Exams 04/12/25 12:46 Draft Ammonia Stat Lab 04/12/25 13:16 Completed B-Type Natriuretic Peptide Stat Lab 04/12/25 13:16 Completed CBC Stat Lab 04/12/25 13:16 Completed Comprehensive Metabolic Panel Stat Lab 04/12/25 13:16 Completed Drug Screen,Urine Stat Lab 04/12/25 12:46 Ordered LDH (Lactate Dehydrogenase) Stat Lab 04/12/25 13:16 Completed Lipase Stat Lab 04/12/25 13:16 Completed Magnesium Stat Lab 04/12/25 13:16 Completed Partial Thromboplastin Time Stat Lab 04/12/25 13:16 Completed Prothrombin Time with INR Stat Lab 04/12/25 13:16 Completed Troponin I Stat Lab 04/12/25 13:16 Completed Urinalysis, C/S if Indicated Stat Lab 04/12/25 12:46 Ordered Lactulose Syrup [Enulose Syrup] Med 04/12/25 14:12 Discontinued 40 gm PO X1 ONE Sodium Chloride 0.9% 1000 ml [Ns] 1,000 ml Med 04/12/25 14:22 Ordered IV 85 mls/hr Vital Signs Vital signs: Vital Signs Temperature 98.2 F 04/12/25 13:02 Pulse Rate 81 04/12/25 13:02 Respiratory Rate 16 04/12/25 13:02 Blood Pressure 120/60 04/12/25 13:02 Pulse Oximetry (%) 95 04/12/25 13:02 Oxygen Delivery Method Room Air 04/12/25 13:02 Discharge Plan Plan Patient Disposition: Other Care w/in Hosp ([facility]) Patient condition on transfer: Stable Prescriptions/Referrals Prescriptions/Med Rec: No Action diphenhydramine HCl [Allergy (diphenhydramine)] 25 mg capsule 25 mg PO QHSPRN PRN (Reason: ALLERGIES) prednisolone acetate 1 % drops,suspension OPHTHALMIC (EYE) Patient Comments: INSTILL 1 DROP IN LEFT EYE FOUR TIMES A DAY alprazolam 0.25 mg tablet 0.5 mg PO Q12H PRN (Reason: anxiety) Patient Comments: TAKE 1 TABLET BY MOUTH TWICE A DAY NEEDED carvedilol 3.125 mg tablet 3.125 mg PO DAILY Rx Instructions: must administer with a meal/food aspirin [Adult Low Dose Aspirin] 81 mg tablet,delayed release (DR/EC) 81 mg PO QDAY escitalopram oxalate 10 mg tablet 10 mg PO DAILY Patient Comments: TAKE 1 TABLET BY MOUTH EVERY DAY Problem List Clinical Impression: Transaminitis, Increased ammonia level, Fatigue, Total bilirubin, elevated Patient/Caregiver Discharge Instructions Print Language: Arabic Stand Alone Forms: Hilaria Award Info., Patient Portal Info Letter PA/[employer] AND G[employer] RE[employer]UITER Supervising Physician PA/[employer] RECRUITER Supervising Physician: Fredi Santiago ENP [facility] Clinical Information Provided by: patient and EMS Medical Records reviewed [facility] and EMS Meds/Rx considered, not ordered None Labs/Rad/Tests considered, not ordered None Chronic Illness/Social Conditions Explain: Liver CA EKG Interpretation EKG #1: EKG Interpretation: EKG performed at 1312 shows a ventricular rate of 79 NM interval 134 QRS of 79 QTc of 405 this is sinus rhythm. Labs Labs: interpreted by ks Lab(s) Interpretation(s): CBC shows no acute leukocytosis, H&H shows hemoglobin is 9.9 hematocrit of 31.2. No thrombocytopenia Coags show PT of 13.4 INR 1.3 PTT of 27.3 CMP shows a BUN of 26 calcium of 8.2 total bili of 5.8 AST of 379 ALT 156 alk phos of 633 Ammonia of 50 LDH of 954. BNP of 201 and troponin is unremarkable. Lipase of 51 Medication Administration(s) Medication Administration History Discontinued Medications Lactulose (Lactulose Syrup 20 Gm/30 Ml Udc) 40 gm PO X1 ONE; Protocol Stop: 04/12/25 14:13
[2025-04-12 13:02] VITALS: BP 120/60; PULSE 81; RESP 16; TEMP 36.8; O2SAT 95
[2025-04-12 13:38] LABS: Ammonia 50 uMol/L (11-32)
[2025-04-12 13:39] LABS: B-Type Natriuretic Peptide 201 pg/mL (0-100); INR 1.3 (0.9-1.3); Partial Thromboplastin Time 27.3 Seconds (22.0-36.0); Prothrombin Time 13.4 Seconds (9.0-12.2)
[2025-04-12 14:01] LABS: Alanine Aminotransferase 156 U/L (10-49); Albumin, Serum 3.1 gm/dL (3.4-4.8); Albumin/Globulin Ratio 1.4 (1.2-2.2); Alkaline Phosphatase 633 U/L (46-116); Anion Gap 9 (7-16); Aspartate Amino Transferase 379 U/L (0-34); BUN/Creatinine Ratio 29 Ratio (12-20); Bilirubin,Total 5.8 mg/dL (0.3-1.2); Blood Urea Nitrogen 26 mg/dL (9-23); Calcium 8.2 mg/dL (8.3-10.6); Calcium (Corrected) 8.9 mg/dL (8.5-10.1); Carbon Dioxide 26.9 mMol/L (20.0-31.0); Chloride 103 mMol/L (98-107); Creatinine (Component) 0.9 mg/dL (0.6-1.3); Estimated Creatinine Clearance 46.9 mL/min (>60); Globulin 2.2 gm/dL (2.3-3.5); Glucose 105 mg/dL (74-106); LDH (Lactate Dehydrogenase) 954 U/L (120-246); Lipase 51 U/L (12-53); Magnesium 2.5 mg/dL (1.6-2.6); Osmolality,Calculated 282 (275-295); Potassium 4.3 mMol/L (3.4-5.1); Sodium 139 mMol/L (136-145); Total Protein 5.3 gm/dL (5.7-8.2); Troponin I < 0.020 ng/mL (0.0-0.045); eGFR > 60 See Note
[2025-04-12 14:05] LABS: Basophils # (Auto) 0.0 Thou/mm3 (0.0-0.2); Basophils % (Auto) 0 % (0-2.5); Eosinophils # (Auto) 0.1 Thou/mm3 (0.0-0.5); Eosinophils % (Auto) 1 % (0-10); Hematocrit 31.2 % (36.0-46.0); Hemoglobin 9.9 g/dL (12.0-16.0); Immature Granulocytes Auto 0.04 Thou/mm3 (0.00-0.00); Lymphocytes # (Auto) 2.0 Thou/mm3 (1.0-4.8); Lymphocytes % (Auto) 22 % (10-50); Mean Corpuscular HGB Conc 31.7 g/dl (31.0-37.0); Mean Corpuscular Hemoglobin 26.7 pg (25.0-35.0); Mean Corpuscular Volume 84 fL (80-100); Monocytes # (Auto) 0.9 Thou/mm3 (0.0-0.8); Monocytes % (Auto) 10 % (0-12); Neutrophils # (Auto) 5.9 Thou/mm3 (1.8-7.7); Neutrophils % (Auto) 66 % (37-80); Nucleated Red Blood Cell # 0.00 Thou/mm3 (0.00-0.00); Nucleated Red Blood Cell % 0 /100 WBC (0); Platelet Count 244 Thou/mm3 (140-440); RDW Standard Deviation 62.5 fL (36.4-46.3); Red Blood Count 3.71 Miln/mm3 (4.00-5.20); White Blood Count 9.0 Thou/mm3 (3.6-11.0)
[2025-04-12 15:16] LABS: Collection Type, Urine Clean Catch
[2025-04-12 15:33] LABS: Amphetamine/Methamp Scrn,U Negative (Negative); Barbiturate Screen,Urine Negative (Negative); Benzodiazepines Screen,Urine Positive (Negative); Benzoylecgonine Screen, Ur Negative (Negative); Fentanyl Screen,Urine Negative (Negative); Opiate Screen,Urine Negative (Negative); THC Screen,Urine Negative (Negative)
[2025-04-12 15:38] LABS: Bacteria,Urine Rare; Bilirubin,Urine Negative (Negative); Blood,Urine Negative (Negative); Color,Urine Yellow (Lt Yel-Yel); Culture Indicated,Urine Not Indicated; Glucose, Urine Negative (Negative); Hyaline Casts,Urine < 1 /hpf (0-1); Ketones,Urine Negative (Negative); Leukocyte Esterase,Urine Negative (Negative); Nitrite,Urine Negative (Negative); PH,Urine 6.0 (5.0-7.0); Protein,Urine Negative (Neg - Trace); RBC,Urine 2 /hpf (0-3); Specific Gravity,Urine 1.018 (1.001-1.035); Squamous Epithelial Cell,Urine < 1 /hpf (0-5); Urobilinogen,Urine 3.0 mg/dL (0.0-1.0); WBC,Urine 3 /hpf (0-5)
[2025-04-12] MEDS: LACTULOSE SYRUP 20 GM/30 ML UDC 40 GM PO (15:40)
[2025-04-12 15:45] LABS: Clarity,Urine Hazy (Clear/Hazy)
[2025-04-12] MEDS: SODIUM CHLORIDE 0.9% 1000 ML 1,000 ML 85 ML IV (15:45)
--- NOTE | 2025-04-12 16:07 | PD.NEPHHP ---
Documentation for date of: 04/12/25 History of Present Illness History of Present Illness Chief complaint: Weakness, abdominal distention History of present illness: Informant daughter Ms. De is a 79-year-old unfortunate lady with past medical history significant for hypertension, dyslipidemia, coronary artery disease s/p angioplasty and stent, was admitted in February for weakness tiredness and shortness of breath and workup at that time showed metastatic liver cancer with unknown primary. Mets to liver, lung. Patient had a Port-A-Cath placed and is under the care of cancer center. Chemotherapy will be started next Friday. Patient continues to have significant weakness and unable to get up from the bed and her daughter brought her to the emergency department. She is supposed to go for a PET scan and paracentesis tomorrow. Current medications include alprazolam, carvedilol, Lexapro, prochlorperazine In the emergency department-blood pressure 114/59, heart rate 82. WBC 9, hemoglobin 9.9, platelets 244. Sodium 139, potassium 4.3, BUN 26, creatinine 0.9, blood sugar 105, calcium 8.9, magnesium 2.5, total bilirubin 5.8, AST 379, ALT 159, alk phos 633, ammonia level 50, LDH 954, troponin normal, BNP 201, albumin 3.1, urinalysis negative urine tox screen showed benzodiazepines. EKG normal sinus rhythm. Patient admitted with a diagnosis of hepatic encephalopathy, ascites, significant weakness Review of Systems Review of Systems Narrative Review of Systems: CONSTITUTIONAL: Patient denies any fever, chills. Complaining of fatigue, weight loss HEENT: Denies any visual disturbances or hearing problems. CARDIOVASCULAR: Patient denies any chest pain. c/o shortness of breath, swelling in the lower extremities. PULMONARY: Patient complaining of shortness of breath GASTROINTESTINAL: Patient complaining of abdominal distention, discomfort, decreased appetite GENITOURINARY: Patient denies any urinary symptoms of burning or frequency or hematuria, denies any form in the urine. SKIN: Denies any rash. MUSCULOSKELETAL: Significant weakness and unable to get up from the bed NEUROLOGICAL: Denies any neurological problems of strokes, seizures or confusion. Denies any memory problems. PSYCHIATRIC: Denies any depression or anxiety. LYMPHATICS : No lymphadenopathy Past Medical History Past Medical History NEUROLOGIC: Negative Neurological Disorders or Seizures CARDIAC: Positive Cardiac Disorders and Myocardial Infarction (2019); Negative Cardiac Arrhythmia, Atrial Fibrillation, Hypercholesterolemia, Congestive Heart Failure, Hypertension or Hypotension RESPIRATORY: Negative Chronic Obstructive Pulmonary Disease (COPD) or Asthma GASTROINTESTINAL: Negative Gastrointestinal Disorders GENITOURINARY: Negative Genitourinary Disorders or Renal Disease REPRODUCTIVE: Positive Previous Pregnancies (x2) MUSCULOSKELETAL: Negative Musculoskeletal Disorders ENT: Positive History of ENT Problems (Corneal transplant left side) ENDOCRINE: Negative Diabetes Mellitus Type 1, Diabetes Mellitus Type 2, Hyperthyroidism, Hypothyroidism or Parathyroid Disease HEMATOLOGIC: Negative Blood Disorders or Sickle Cell Disease PSYCHO/SOCIAL: Positive Depression and Anxiety OTHER HISTORY: Positive Cancer (liver); Negative Blood Transfusions, Blood Transfusion Reaction or Anesthesia Reactions Surgical History SURGICAL: Positive Coronary Stent, Cardiac Catheterization, Eye Surgery, Tonsillectomy and Hip Sx (right); Negative Pacemaker Social History SMOKING STATUS: Former smoker SECOND HAND EXPOSURE: Yes ALCOHOL LAST INTAKE: Unknown Meds Home Medications and Allergies Home Medications ?Medication ?Instructions ?Recorded ?Confirmed ?Type alprazolam 0.25 mg tablet 0.25 mg PO .Q24 PRN anxiety 01/13/25 04/12/25 History aspirin 81 mg tablet,delayed 81 mg PO QDAY 01/13/25 04/12/25 History release (Adult Low Dose Aspirin) Held on 04/06/25. Instructions: Resume on 04/09/25. carvedilol 3.125 mg tablet 3.125 mg PO DAILY 01/13/25 04/12/25 History escitalopram oxalate 10 mg tablet 10 mg PO DAILY 01/13/25 04/12/25 History prednisolone acetate 1 % eye 1 drp Left eye .Q24 04/06/25 04/12/25 History drops,suspension furosemide 20 mg tablet 20 mg PO Q24H PRN edema 04/12/25 04/12/25 History prochlorperazine maleate 5 mg 5 mg PO Q24H 04/12/25 04/12/25 History tablet Allergies Allergy/AdvReac Type Severity Reaction Status Date / Time No Known Allergies Allergy Verified 04/12/25 12:45 Exam Vital Signs Temp Pulse Resp BP Pulse Ox O2 Del Method 36.8 C 81 16 120/60 95 Room Air 04/12/25 13:02 04/12/25 13:02 04/12/25 13:02 04/12/25 13:02 04/12/25 13:02 04/12/25 13:02 Narrative Exam GENERAL APPEARANCE: Sick looking lady currently seen in emergency department. Daughter at bedside Jaundice noted, scleral icterus noted NECK: Neck supple, no JVD or bruit CARDIOVASCULAR: Heart regular, no murmurs LUNGS/CHEST: Chest clear to auscultation. No rales, rhonchi, wheezing ABDOMEN: Soft, nontender, distended with ascites EXTREMITIES: Significant edema in the lower extremities. SKIN: Jaundiced MUSCULOSKELETAL: In bed, able to move her EXTR NEUROLOGICAL : No neurological deficits. No focal deficit, no asterixis Results: Labs 04/12/25 13:16 04/12/25 13:16 Labs: Short CBC 04/12/25 Range/Units 13:16 WBC 9.0 (3.6-11.0) Thou/mm3 Hgb 9.9 L (12.0-16.0) g/dL Hct 31.2 L (36.0-46.0) % Plt Count 244 D (140-440) Thou/mm3 BMP 04/12/25 13:16 Sodium 139 Potassium 4.3 Chloride 103 Carbon Dioxide 26.9 BUN 26 H Creatinine 0.9 Glucose 105 Calcium 8.2 L Cardiac Enzymes 04/12/25 Range/Units 13:16 Troponin I < 0.020 (0.0-0.045) ng/mL Liver Function 04/12/25 Range/Units 13:16 Total Bilirubin 5.8 H (0.3-1.2) mg/dL AST 379 H (0-34) U/L ALT 156 H (10-49) U/L Alkaline Phosphatase 633 H (46-116) U/L Albumin 3.1 L (3.4-4.8) gm/dL Urine 04/12/25 Range/Units 14:55 Urine Color Yellow (Lt Yel-Yel) Urine Clarity Hazy (Clear/Hazy) Urine pH 6.0 (5.0-7.0) Ur Specific [place] 1.018 (1.001-1.035) Urine Protein Negative (Neg - Trace) Urine Glucose (UA) Negative (Negative) Assessment & Plan Additional Assessment & Plan Additional Plan: 79-year-old female with CAD, HTN, and HLD presenting with weakness, gait imbalance, decreased appetite. 02/2025 admitted with multifocal hepatic lesions and pulmonary nodules, elevated LFTs, and elevated CEA? metastatic liver cancer of unknown primary. Patient had endoscopy, colonoscopy last visit. # Multiple Hepatic Lesions / Hepatomegaly/liver cancer with primary unknown # Elevated Liver Enzymes Secondary to cancer # Pulmonary Nodules CT chest shows multiple non-calcified nodules suggestive of early metastatic disease. # Anemia Hgb down to 9.9. No signs of bleeding. Plan: Monitor H/H daily Transfuse PRN if Hgb <7 or symptomatic Reassess post-procedure # Hypertension Stable, controlled on current meds. Plan: Continue carvedilol Monitor BP daily # Coronary Artery Disease s/p stent; currently stable, denies chest pain. Plan: Hold aspirin for now Hold statin due to LFT elevation Add Coreg Monitor cardiac enzymes and telemetry # Anxiety and Depression Stable on escitalopram and alprazolam PRN. Plan: Continue home meds Supportive care DVT prophylaxis: SCD GI prophylaxis: Not needed Diet: Cardiac diet Code Status: Patient requested DNR/DNI-daughter present Disposition Home with home health care Quality Measures Quality Measures none Advance care planning discussed with:: patient
[2025-04-12 17:00] VITALS: BP 102/63; PULSE 85; RESP 17; TEMP 36.7; O2SAT 93
[2025-04-12] MEDS: ESCITALOPRAM OXALATE 10 MG TABLET PO (17:25)
[2025-04-12] MEDS: PROCHLORPERAZINE MALEATE 5 MG TABLET PO (17:25)
--- NOTE | 2025-04-12 17:53 | PC.NURSE ---
Hand offf report given to Michael WALLACE from med surg. Pt is alert and oriented. Aware of admission to floor. All belongings gathered sent with patient. VSS. PT sent via gurney with [employer].
[2025-04-12 20:00] VITALS: BP 114/59; PULSE 82; RESP 17; TEMP 37.2; O2SAT 93
[2025-04-12 20:09] VITALS: BP 114/59; PULSE 82
[2025-04-12] MEDS: ALBUMIN HUMAN-KJDA 25% IVPB 25 GM/100 ML BTL IV (20:09)
[2025-04-13] VITALS: BP 119/64; PULSE 75; RESP 17; TEMP 36.2; O2SAT 93
[2025-04-13 04:00] VITALS: BP 113/59; PULSE 71; RESP 17; TEMP 37; O2SAT 93
[2025-04-13 05:33] LABS: Basophils # (Auto) 0.0 Thou/mm3 (0.0-0.2); Basophils % (Auto) 0 % (0-2.5); Eosinophils # (Auto) 0.1 Thou/mm3 (0.0-0.5); Eosinophils % (Auto) 1 % (0-10); Hematocrit 25.1 % (36.0-46.0); Immature Granulocytes Auto 0.04 Thou/mm3 (0.00-0.00); Lymphocytes # (Auto) 2.3 Thou/mm3 (1.0-4.8); Lymphocytes % (Auto) 25 % (10-50); Mean Corpuscular HGB Conc 31.5 g/dl (31.0-37.0); Mean Corpuscular Hemoglobin 26.2 pg (25.0-35.0); Mean Corpuscular Volume 83 fL (80-100); Monocytes # (Auto) 0.9 Thou/mm3 (0.0-0.8); Monocytes % (Auto) 10 % (0-12); Neutrophils # (Auto) 5.8 Thou/mm3 (1.8-7.7); Neutrophils % (Auto) 63 % (37-80); Nucleated Red Blood Cell # 0.00 Thou/mm3 (0.00-0.00); Nucleated Red Blood Cell % 0 /100 WBC (0); Platelet Count 194 Thou/mm3 (140-440); RDW Standard Deviation 63.1 fL (36.4-46.3); Red Blood Count 3.02 Miln/mm3 (4.00-5.20); White Blood Count 9.2 Thou/mm3 (3.6-11.0)
[2025-04-13 06:03] LABS: Ammonia 18 uMol/L (11-32)
[2025-04-13 06:05] LABS: Alanine Aminotransferase 119 U/L (10-49); Albumin, Serum 2.8 gm/dL (3.4-4.8); Albumin/Globulin Ratio 1.6 (1.2-2.2); Alkaline Phosphatase 523 U/L (46-116); Anion Gap 9 (7-16); Aspartate Amino Transferase 295 U/L (0-34); BUN/Creatinine Ratio 31 Ratio (12-20); Bilirubin,Total 4.8 mg/dL (0.3-1.2); Blood Urea Nitrogen 28 mg/dL (9-23); Calcium 8.0 mg/dL (8.3-10.6); Calcium (Corrected) 9.0 mg/dL (8.5-10.1); Carbon Dioxide 26.2 mMol/L (20.0-31.0); Chloride 106 mMol/L (98-107); Creatinine (Component) 0.9 mg/dL (0.6-1.3); Estimated Creatinine Clearance 47.6 mL/min (>60); Globulin 1.7 gm/dL (2.3-3.5); Glucose 100 mg/dL (74-106); Osmolality,Calculated 286 (275-295); Potassium 4.4 mMol/L (3.4-5.1); Sodium 141 mMol/L (136-145); Total Protein 4.5 gm/dL (5.7-8.2); eGFR > 60 See Note
[2025-04-13 06:26] LABS: Hemoglobin 7.9 g/dL (12.0-16.0)
[2025-04-13 08:00] VITALS: BP 98/55; PULSE 74; RESP 18; TEMP 36.3; O2SAT 92
--- NOTE | 2025-04-13 08:00 | XR_ITS ---
Examination: Abdomen sonogram, Limited Date and time of exam: April 13, 2025, 1338 hours INDICATIONS: Cirrhosis increasing ascites this week Technique: Real-time jacobo scale transabdominal sonographic images of the upper abdomen obtained. Findings: Minimal ascitic fluid IMPRESSION: Minimal ascitic fluid
[2025-04-13 08:31] VITALS: BP 98/55; PULSE 74
[2025-04-13] MEDS: ESCITALOPRAM OXALATE 10 MG TABLET PO (08:31)
[2025-04-13] MEDS: ALBUMIN HUMAN-KJDA 25% IVPB 25 GM/100 ML BTL IV (08:31)
[2025-04-13] MEDS: LACTULOSE SYRUP 20 GM/30 ML UDC PO (08:32)
--- NOTE | 2025-04-13 11:43 | PC.SS ---
Patient is alert/oriented. Patient was able to verify demographics. Patient was admitted for liver cancer. Patient states she needs assistance with ADL's at home. She uses a walker. No other DME. Patient resides with . Patient states she has a caregiver, who is her friend that comes in to help her. Patient's daughter, Aneta, also stops by periodically to help patient. Patient's family transports her to all appointments. Patient prefers to discharge with home health. Patient wants
[2025-04-13 12:00] VITALS: BP 98/55; PULSE 74; RESP 18; TEMP 36.3; O2SAT 92
--- NOTE | 2025-04-13 12:53 | ESDS_ITS ---
Planned Discharge Date 04/13/25 DS: Providers Provider Date of admission: 04/12/25 16:14 Primary care physician: Physician No Primary/Family Admitting Provider: Doug Montes MD Attending Provider on Admission: Doug Montes MD Consults: 04/13/25 08:00 PT [Referral Physical Therapy] Routine Comment: Physician Instructions: Attending Provider on DC: Doug Montes MD Discharging Provider: Doug Montes MD Discharge Diagnosis Discharge Diagnosis (1) Adult failure to thrive: Status: Acute (2) Fatigue: Status: Acute (3) Cancer, metastatic to liver: Status: Acute Assessment & Plan: # Multiple Hepatic Lesions / Hepatomegaly/liver cancer with primary unknown # Elevated Liver Enzymes Secondary to cancer # Pulmonary Nodules CT chest shows multiple non-calcified nodules suggestive of early metastatic disease. # Anemia Hgb down to 9.9. No signs of bleeding. Plan: * Monitor H/H daily * Transfuse PRN if Hgb <7 or symptomatic * Reassess post-procedure # Hypertension Stable, controlled on current meds. Plan: * Continue carvedilol * Monitor BP daily # Coronary Artery Disease s/p stent; currently stable, denies chest pain. Plan: * Hold aspirin for now * Hold statin due to LFT elevation * Add Coreg * Monitor cardiac enzymes and telemetry # Anxiety and Depression Stable on escitalopram and alprazolam PRN. Plan: * Continue home meds * Supportive care Problem List Completed Was Problem List Reviewed/Reconciled?: Yes Hospital Course Hospital Course Hospital course: Informant daughter Ms. De is a 79-year-old unfortunate lady with past medical history significant for hypertension, dyslipidemia, coronary artery disease s/p angioplasty and stent, was admitted in February for weakness tiredness and shortness of breath and workup at that time showed metastatic liver cancer with unknown primary. Mets to liver, lung. Patient had a Port-A-Cath placed and is under the care of cancer center. Chemotherapy will be started next Friday. Patient continues to have significant weakness and unable to get up from the bed and her daughter brought her to the emergency department. She is supposed to go for a PET scan and paracentesis tomorrow. Current medications include alprazolam, carvedilol, Lexapro, prochlorperazine In the emergency department-blood pressure 114/59, heart rate 82. WBC 9, hemoglobin 9.9, platelets 244. Sodium 139, potassium 4.3, BUN 26, creatinine 0.9, blood sugar 105, calcium 8.9, magnesium 2.5, total bilirubin 5.8, AST 379, ALT 159, alk phos 633, ammonia level 50, LDH 954, troponin normal, BNP 201, albumin 3.1, urinalysis negative urine tox screen showed benzodiazepines. EKG normal sinus rhythm. Patient admitted with a diagnosis of hepatic encephalopathy, ascites, significant weakness Patient complaining of fatigue although wants to go home with home health care. She wants to see Dr. Cobb tomorrow. Planning to get her chemotherapy next Friday. Did request to go to rehab-declined. Labs/medications reviewed. Continues to have significant elevation in liver enzymes from metastatic liver cancer. Status at Discharge Cognitive/behavioral status at discharge: stable Functional status at discharge: wheelchair bound Overall status at discharge: patient is not back to baseline Time Spent with Patient Time attestation: Total time spent providing and/or coordinating discharge services: 33 min Home Health Home Health Referral Orders: 04/12/25 21:02 Home Health Referral Routine Reason For Exam: Gait imbalance Home-Bound The patient must either because of illness or injury, need the aid of supportive devices such as crutches, canes, wheelchairs, and walkers; the use of special transportation; or the assistance of another person in order to leave their place of residence; OR have a condition such that leaving his or her home is medically contraindicated. In addition, the patient also meets the following criteria: patient is normally unable to leave the home and leaving home requires considerable taxing effort. Addendum to Home Health Certification Practitioner's Certification: I certify that the patient has been under my care in the hospital and the care of attending physician (see below). We had a jlii-rh-vdde encounter on (see date below). My clinical findings indicate that the patient is home bound per the above criteria and the Home Health Services noted in these orders are medically necessary. The primary reason for the skql-ie-frem encounter is related to the fact that the patient requires home health services. Date Certifying Cvol-xy-Cnob Physician Encounter: 04/12/25 Physician's Name who will Assume Oversight for HH Services: Physician No Primary/Family BUSINESS SUPPORT - Community Resources: Yes PT to Evaluate: Yes PT to evaluate and provide a treatmnet plan to increase patient's mobility and strength. Wound Care: No IV Therapy: No RN Safety Evaluation: Yes RN to evaluate and create a plan of care that will produce positive outcomes. Palliative Treatment: No Palliative treatment and evaluate the need for hospice. Home Health Aide - Personal Care: Yes Home Health Aide to assist with any ADL's. Exam Vital Signs Temp Pulse Resp BP Pulse Ox O2 Del Method 36.3 C 74 18 98/55 L 92 L Room Air 04/13/25 12:00 04/13/25 12:00 04/13/25 12:00 04/13/25 12:00 04/13/25 12:00 04/13/25 12:00 Narrative Exam GENERAL APPEARANCE: NAD NECK: Neck supple, no JVD or bruit CARDIOVASCULAR: Heart regular, no murmurs LUNGS/CHEST: Chest clear to auscultation. No rales, rhonchi, wheezing ABDOMEN: Soft, ascites noted EXTREMITIES: 2+ edema in the lower extremities SKIN: Skin exam normal without any rashes MUSCULOSKELETAL: In bed NEUROLOGICAL : No neurological deficits, able to move all her extremities Discharge Plan Plan Patient Disposition: Home w/HOME HEALTH Patient condition on transfer: Stable Prescriptions/Referrals Prescriptions/Med Rec: Continued prednisolone acetate 1 % drops,suspension 1 drp Left eye .Q24 Patient Comments: INSTILL 1 DROP IN LEFT EYE FOUR TIMES A DAY alprazolam 0.25 mg tablet 0.25 mg PO .Q24 PRN (Reason: anxiety) Patient Comments: TAKE 1 TABLET BY MOUTH TWICE A DAY NEEDED carvedilol 3.125 mg tablet 3.125 mg PO DAILY Rx Instructions: must administer with a meal/food escitalopram oxalate 10 mg tablet 10 mg PO DAILY Patient Comments: TAKE 1 TABLET BY MOUTH EVERY DAY prochlorperazine maleate 5 mg tablet 5 mg PO Q24H Patient Comments: 1 TABLET DAILY furosemide 20 mg tablet 20 mg PO Q24H PRN (Reason: edema ) Discontinued aspirin [Adult Low Dose Aspirin] 81 mg tablet,delayed release (DR/EC) 81 mg PO QDAY Referrals: No Primary/Family,Physician [Primary Care Provider] Patient/Caregiver Discharge Instructions Discharge Activity: activity as tolerated Education Materials: Paracentesis Dc Print Language: Slovenian Activity Restrictions/Additional Instructions: f/u with dr. montes in 1 week f/u with dr. destini vallejo Stand Alone Forms: Hilaria Award Info., Patient Portal Info Letter Discharge Order Discharge Orders: Discharge (Routine); Ordered 04/13/25 Ordered By: Doug Montes
[2025-04-13 15:16] VITALS: BMI 12.0
[2025-04-13 15:32] VITALS: BP 106/52; PULSE 75; RESP 18; TEMP 36.7; O2SAT 91
--- NOTE | 2025-04-14 07:33 | PC.CC ---
Addendum entered by Tera Cabral RN 04/14/25 17:27: [facility] accepted, however pt is admitted back in the hospital. Informed [facility] that new order will be sent when pt discharges. Original Note: HH ref sent out, waiting for response
== END 2025-04-13 16:23 | disposition home health service (06) | DRG 436 ==
LOC: SERX 14:49 → SERHOLD 16:16 → S3NX 18:01
PROVIDERS: Registered Nurse General Practice; Admitting Provider Internal Medicine; Emergency Provider Emergency Medicine; Visit Provider Internal Medicine
DX: C78.7 Secondary malignant neoplasm of liver and intrahepatic bile duct (principal); C78.00 Secondary malignant neoplasm of unspecified lung; R18.8 Other ascites; I10 Essential (primary) hypertension; Z95.5 Presence of coronary angioplasty implant and graft; K76.82 Hepatic encephalopathy; D64.9 Anemia, unspecified; R62.7 Adult failure to thrive; E78.5 Hyperlipidemia, unspecified; I25.10 Atherosclerotic heart disease of native coronary artery without angina pectoris; R79.89 Other specified abnormal findings of blood chemistry; F32.A Depression, unspecified; F41.9 Anxiety disorder, unspecified; Z66 Do not resuscitate; Z87.891 Personal history of nicotine dependence; Z79.82 Long term (current) use of aspirin; Z79.899 Other long term (current) drug therapy
CPT/HCPCS: 36415; 76705; 80053; 80307; 81001; 82140; 83615; 83690; 83735; 83880; 84484; 85025; 85610; 85730; 93005; 97162; 99283; J7030; P9047; Q0164; A9270; P0947

== ENCOUNTER 2025-04-14 09:42 | Outpatient (RCR) | payer MEDICARE, BC, SELFPAY ==
--- NOTE | 2025-04-18 00:45 | CTCFLWUP_ITS ---
Patient: JUVE DE : 1945 Page 2 of 2 FOLLOW UP NOTE DATE OF SERVICE: 04/14/2025 NAME: JUVE DE ACCOUNT: [id number] : 1945 AGE: 80 INTERVAL HISTORY: Patient is recently discharged from the hospital . Patient is accompanied by her daughter. Daughter want to get patient admitted in the hospital as she is unable to care for her at home. Patient at this time is total care and is unable to take care of her ADLs. Patient was very deconditioned on discharge and needs rehab. ONCOLOGY HISTORY:?[facility] Oncology Hx? DIAGNOSIS: Malignant neoplasm of ill-defined sites within the digestive system [ICD10] C26.9 DATE OF DIAGNOSIS: 03/04/2025 STAGE/TNM: 4 likely colon cancer TREATMENT HISTORY: Care?Plan Start?Date Cycle Day Intent mFOLFOX-6?+?Bevacizumab?5?mg/kg 04/18/2025 1 14 Palliative HISTORY OF PRESENT ILLNESS: 80-year-old female 03/03/2025 ALT was found showed 16.7 cm liver with the multiple liver lesions largest in the left lobe 7.7 x 5.6 x 7 cm 03/03/2025 CT scan3 mm pulmonary nodule left lower lobe 4 mm pulmonary nodule right lower lobe Multiple liver lesions including 5 cm mass in the left lobe The liver is enlarged No pancreatic or adrenal mass Aorta is heavily calci?ed no aneurysmal dilatation Trace ascites No bowel obstruction Bladder intact No diverticulitis ?gg??a mmwg?is L4 on L5 [facility] Patient name: ISHMAEL NAYAK IMPRESSION: Subcentimeter bilateral lower lobe pulmonary nodules Signi?cant hepatomegaly with multiple hepatic metastases No bowel obstruction Trace ascltes 03/04/2025 EGD and colonoscopy negative OTHER MEDICAL HISTORY/CONDITIONS: Metastatic adenocarcinoma of liver -dx03/04/2025 [facility] - 2019 Hyperlipidemia 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 ALPRAZolam - 0.25 mg 1 tab As directed 2. aspirin - 81 mg 1 tab Continuously 3. BenadryL - 25 mg 1 tab Every day before sleep 4. capecitabine - 500 mg 2 tab 2 tab twice daily 5. carvedilol - 3.125 mg 1 tab Daily 6. escitalopram oxalate - 10 mg 1 tab Daily 7. lactulose - 10 gram/15 mL 45 mL Daily 8. ondansetron - 8 mg 1 tab Daily 9. prednisoLONE acetate (PF) - 1 % 1 drops As directed 10. prochlorperazine maleate - 5 mg 1 tab Daily?Palabra Meds? Medications Last Reconciled by Gardenia Limon MD on 04/14/2025 ALLERGIES: No Known Drug Allergies REVIEW OF SYSTEMS: A complete 14-point review of systems was performed and is negative except as noted in interval history. PHYSICAL EXAMINATION:?CloneBlock PE? VITAL SIGNS: Temperature?95, B/P?92/58, Oxygen?Saturation?93% Weight?150?lbs (Change?since?04/01/25:?-1?lbs) PAIN: 0 - No pain ECOG Performance Status: 4 - Completely disabled; no self-care; bedridden GENERAL APPEARANCE: Appears well, in no apparent distress, appropriately interactive. HEENT: Normocephalic, no temporal wasting, normal conjunctiva, no scleral icterus, normal hearing, lips without lesions, neck normal range of motion. CARDIOVASCULAR: Not assessed. Abdomen distended bilateral lower extremities edema LABORATORY DATA: I have personally reviewed and interpreted each of the patient?s relevant lab tests, abnormal findings are below: Date 04/16/25 04/17/25 ??WHITE?BLOOD?COUNT?(Thou/mm3) 11.9?H 10.8 ??RED?BLOOD?COUNT?(Miln/mm3) 3.24?L 3.22?L ??HEMOGLOBIN?(gm/dl) 8.3?L 8.3?L ??HEMATOCRIT?(%) 26.7?L 26.4?L ??PLATELET?COUNT?(Thou/mm3) 198 253 ??NEUTROPHILS?%,?AUTO?(%) 64 62 ??LYMPH?%,?AUTO?(%) 23 23 ??NEUTROPHILS,?AUTO?(Thou/mm3) 7.6 6.7 ??GLUCOSE,RANDOM?(mg/dL) 102 100 ??BLOOD?UREA?NITROGEN?(mg/dL) 20 22 ??CREATININE?(mg/dL) 0.80 0.70 ??SODIUM?(mmol/L) 136 134?L ??POTASSIUM?(mmol/L) 4.4 4.3 ??CHLORIDE?(mmol/L) 103 102 ??CrCl?(CandG)?(ml/min) 61.25 70.00 ??AST/SGOT?(Unit/L) 247?H 258?H ??ALT/SGPT?(Unit/L) 105?H 110?H ??ALKALINE?PHOSPHATASE?(Unit/L) 523?H 510?H ??BILIRUBIN,?TOTAL?(mg/dL) 4.1?H 3.6?H ??PROTEIN?TOTAL?(gm/dl) 5.0?L 4.9?L ??ALBUMIN,?SERUM?(gm/dl) 2.9?L 2.8?L ??GLOBULIN?(gm/dl) 2.1?L 2.1?L ??ALBUMIN/GLOBULIN?RATIO 1.4 1.3 ??CALCIUM,?SERUM?(mg/dL) 8.2?L 8.3 ??CALCIUM?SERUM?(CORRECTED)?(mg/dL) 9.1 9.3 ASSESSMENT/PLAN:?Ant Cobb Assessment/Plan? Metastatic adenocarcinoma of GI origin Large metastatic lesions in the liver Patient also developing ascites and bilateral pedal edema Patient also have extensive cardiac history and is on Coreg aspirin and statin status post stenting to RCA For anxiety patient takes citalopram and Xanax and also had cornea transplant in 2022 Patient now comes with large lesion in the liver which is proven to be coming from GI EGD and colonoscopy was negative Colonoscopy showed no lesion in the colon but area between the anus and cecum was not well-prepped and not visualized as per colonoscopy report EGD was negative Based on MsDara De need urgent treatment to shrink the lesions in the liver Will start her on FOLFOX Port catheter placement is completed. Patient need to get her adelita removed. Will start on iron Patient may not be able to start intravenous chemotherapy as family is having a hard time bringing her to the infusions Will start on capecitabine 1000 mg/m? p.o. twice daily for 14 days every 3 weeks until patient is able to come to the infusion room to receive her intravenous chemotherapy ORDERS: Order # Description [id number] Infusion 6 Hours [id number] Discontinue CIV Pump [id number] Comprehensive Metabolic Panel + CBC with Auto Diff + CEA + Urinalysis, Automated with Microscopy [id number] Follow Up Appointment [id number] Infusion 6 Hours [id number] Discontinue CIV Pump [id number] Comprehensive Metabolic Panel + CBC with Auto Diff + CEA + Urinalysis, Automated with Microscopy [id number] Follow Up Appointment [id number] Infusion 6 Hours [id number] Discontinue CIV Pump [id number] Comprehensive Metabolic Panel + CBC with Auto Diff + CEA + Urinalysis, Automated with Microscopy [id number] Follow Up Appointment [id number] Infusion 6 Hours [id number] Discontinue CIV Pump [id number] Comprehensive Metabolic Panel + CBC with Auto Diff + CEA + Urinalysis, Automated with Microscopy [id number] Follow Up Appointment [id number] Infusion 6 Hours [id number] Discontinue CIV Pump [id number] Comprehensive Metabolic Panel + CBC with Auto Diff + CEA + Urinalysis, Automated with Microscopy [id number] Follow Up Appointment [id number] Infusion 6 Hours [id number] Discontinue CIV Pump [id number] Comprehensive Metabolic Panel + CBC with Auto Diff + CEA + Urinalysis, Automated with Microscopy [id number] Follow Up Appointment [id number] Infusion 6 Hours [id number] Discontinue CIV Pump [id number] Comprehensive Metabolic Panel + CBC with Auto Diff + CEA + Urinalysis, Automated with Microscopy [id number] Follow Up Appointment [id number] Infusion 6 Hours [id number] Discontinue CIV Pump [id number] Comprehensive Metabolic Panel + CBC with Auto Diff + CEA + Urinalysis, Automated with Microscopy [id number] Follow Up Appointment [id number] Infusion 6 Hours [id number] Discontinue CIV Pump [id number] Comprehensive Metabolic Panel + CBC with Auto Diff + CEA + Urinalysis, Automated with Microscopy [id number] Follow Up Appointment [id number] Infusion 6 Hours [id number] Discontinue CIV Pump [id number] Comprehensive Metabolic Panel + CBC with Auto Diff + CEA + Urinalysis, Automated with Microscopy [id number] Follow Up Appointment [id number] Infusion 6 Hours [id number] Discontinue CIV Pump [id number] Comprehensive Metabolic Panel + CBC with Auto Diff + CEA + Urinalysis, Automated with Microscopy [id number] Follow Up Appointment [id number] Infusion 6 Hours [id number] Discontinue CIV Pump [id number] Comprehensive Metabolic Panel + CBC with Auto Diff + CEA + Urinalysis, Automated with Microscopy [id number] Follow Up Appointment RETURN TO CLINIC: I reviewed the diagnosis, prognosis, and recommended treatment/procedure options with the patient (and/or their legal sales representative uniforms), including the potential benefits, risks, side effects and alternative therapies. We also discussed the option of no treatment and the possibility of clinical trial participation, if applicable. All questions were addressed, and they demonstrated understanding. They provided informed consent to proceed with the proposed plan of care. BILLING AND COMPLIANCE: I reviewed external records from providers outside my specialty as summarized above. I spent a total of 50 minutes on this patient?s care on the day of their visit excluding time spent related to any billed procedures. This time includes time spent with the patient as well as time spent documenting in the medical record, reviewing patients records and tests, obtaining history, placing orders, communicating with other healthcare professionals, counseling the patient, family or caregiver, and/or care coordination for the diagnoses above. Electronically Signed by: Ovidio Cobb MD T: 12:43 AM CC: PCP: Doug Montes Referring: Doug Montes This document was completed utilizing speech recognition software. Grammatical errors, random word insertions, pronoun errors, and incomplete sentences are an occasional consequence of this system due to software limitations, ambient noise, and hardware issues. Any formal questions or concerns about the content, text or information contained within the body of this dictation should be directly addressed to the provider for clarification.
== END 2025-04-24 23:59 | disposition home or self-care (01) ==
LOC: SCTC 09:42
PROVIDERS: PCP Internal Medicine; Referring Provider Internal Medicine; Visit Provider Internal Medicine Hematology & Oncology
DX: C26.9 Malignant neoplasm of ill-defined sites within the digestive system (principal); C78.7 Secondary malignant neoplasm of liver and intrahepatic bile duct; R18.8 Other ascites; R60.0 Localized edema; F41.9 Anxiety disorder, unspecified
CPT/HCPCS: 99212; G0463

== ENCOUNTER 2025-04-14 11:04 | Inpatient (IN) | payer MEDICARE, BC, SELFPAY ==
[2025-04-14] VITALS (7 sets, daily range): BP systolic 101–119; BP diastolic 48–64; PULSE 70–92; RESP 16–19; TEMP 36.2–37.1; O2SAT 93–98; BMI 27.4
--- NOTE | 2025-04-14 11:56 | PD.EDWEAK ---
ED Weakness RME/HPI General Chief complaint: Weakness Stated complaint: WEAKNESS, CANT MOVE, CANT DO ANYTHING, HX OF Time Seen by Provider: 04/14/25 11:33 Arrival date/time: 04/14/25 11:04 RME / HPI RME / HPI Narrative: 80 year old female with history of CAD s/p angioplasty and stent, hypertension, hyperlipidemia, metastatic liver and lung cancer with unknown primary, undergoing chemotherapy presents to the ED brought in by family for evaluation of global weakness today. Per the patient's daughter, the patient was diagnosed with metastatic cancer approximately two months ago and has gradually become weaker since then. Daughter reports that the patient was admitted to the hospital in February and 04/12/2025 for similar symptoms of fatigue and weakness. Yesterday evening, while assisting the patient into bed, the daughter noted the patient was unable to sit up or roll onto her side independently. The patient also reported feeling unwell at that time. Four days ago, the patient fell while walking with a walker. Daughter states they consulted with oncologist, Dr. Cobb, who advised a hospital visit for further evaluation. The patient is able to eat, though her intake is limited to approximately 1 Ensure and a banana per day. She denies any changes in urinary habits. Related Data Home Medications ?Medication ?Instructions ?Recorded ?Confirmed alprazolam 0.25 mg tablet 0.25 mg PO .Q24 PRN anxiety 01/13/25 04/12/25 carvedilol 3.125 mg tablet 3.125 mg PO DAILY 01/13/25 04/12/25 escitalopram oxalate 10 mg tablet 10 mg PO DAILY 01/13/25 04/12/25 prednisolone acetate 1 % eye 1 drp Left eye .Q24 04/06/25 04/12/25 drops,suspension furosemide 20 mg tablet 20 mg PO Q24H PRN edema 04/12/25 04/12/25 prochlorperazine maleate 5 mg 5 mg PO Q24H 04/12/25 04/12/25 tablet Allergies Allergy/AdvReac Type Severity Reaction Status Date / Time No Known Allergies Allergy Verified 04/14/25 11:07 Review of Systems Review of Systems Systems Reviewed: All systems reviewed, normal except as documented Past Medical History Past Medical History CARDIAC: Positive Cardiac Disorders and Myocardial Infarction (2019) REPRODUCTIVE: Positive Previous Pregnancies PSYCHO/SOCIAL: Positive Depression and Anxiety OTHER HISTORY: Positive Cancer (liver) Surgical History SURGICAL: Positive Coronary Stent, Cardiac Catheterization, Eye Surgery and Tonsillectomy Social History SMOKING STATUS: Former smoker SECOND HAND EXPOSURE: Yes ED Exam Narrative Physical exam: General: Elderly, frail, jaundiced, chronically ill appearing. HEENT: Normocephalic, atraumatic, scleral icterus noted. Neck: Atraumatic, supple. Cardiac: Regular rate and rhythm with a systolic murmur. Respiratory: Clear to auscultation bl, no respiratory distress. Abdomen: Mild distention with ascites. Nontender otherwise. MS: 3+ pitting edema in lower extremities; no calf tenderness bilaterally. Skin: No exanthems, no cyanosis, no diaphoresis. Neurologic: No altered mental status, speech is fluent. Psychological: Cooperative and participatory with examination. Course Quality Measures none Orders Category Date Time Status admission [Admit to Inpatient Status] Routine Admission 04/14/25 16:28 Active In and Out Catheter X1 Care 04/14/25 15:55 Completed Referral Discharge Planning Stat Cons 04/14/25 16:30 Active Referral Physical Therapy Routine Cons 04/14/25 16:30 Active Diet Regular Diet 04/14/25 Dinner Active US venous duplex LE BI Stat Exams 04/14/25 13:36 Completed XR chest 1V portable Stat Exams 04/14/25 13:37 Completed CBC AM DRAW Lab 04/15/25 05:00 Ordered CBC AM DRAW Lab 04/16/25 05:00 Ordered CBC AM DRAW Lab 04/17/25 05:00 Ordered CBC Stat Lab 04/14/25 13:48 Completed CMP [Comprehensive Metabolic Panel] Stat Lab 04/14/25 13:48 Completed Comprehensive Metabolic Panel AM DRAW Lab 04/15/25 05:00 Ordered Comprehensive Metabolic Panel AM DRAW Lab 04/16/25 05:00 Ordered Comprehensive Metabolic Panel AM DRAW Lab 04/17/25 05:00 Ordered Lactate (Lactic Acid) Stat Lab 04/14/25 13:48 Completed Magnesium Stat Lab 04/14/25 13:48 Completed Procalcitonin Stat Lab 04/14/25 13:48 Completed Urinalysis, C/S if Indicated Stat Lab 04/14/25 15:52 Completed VBG [Venous Blood Gas] Stat Lab 04/14/25 13:48 Completed ALPRazoLAM [Xanax] Med 04/14/25 16:30 Active 0.25 mg PO QDAY PRN ANX anxiety Escitalopram Oxalate [Lexapro] Med 04/14/25 16:30 Active 10 mg PO DAILY Furosemide [Lasix] Med 04/14/25 16:30 Active 20 mg PO Q24H PRN edema Prochlorperazine Maleate [Compazine] Med 04/14/25 16:30 Active 5 mg PO Q24H carVEDILOL [Coreg] Med 04/14/25 16:30 Active 3.125 mg PO DAILY cefTRIAXone/D5w 1gm IV premix [Rocephin/D5w 1gm IV Med 04/14/25 16:31 Active premix] 1 gm in 50 ml IV QDAY prednisoLONE OP SUSP 1% [Pred-Forte Op Susp 1%] Med 04/14/25 16:30 Active 1 drop LEFT EYE QDAY Code Status Routine Oth 04/14/25 16:28 Ordered Vital Signs Vital signs: Vital Signs Temperature 98.3 F 04/14/25 11:16 Pulse Rate 83 04/14/25 11:16 Respiratory Rate 17 04/14/25 11:16 Blood Pressure 101/64 04/14/25 11:16 Pulse Oximetry (%) 98 04/14/25 11:16 Oxygen Delivery Method Room Air 04/14/25 11:16 Pulse ox is 98% on room air which is adequate. Weakness MDM Narrative MDM Narrative:: This elderly female with metastatic liver cancer (primary unknown) presents with profound weakness, inability to turn over in bed, and significant functional decline. She was recently discharged but remains unable to care for herself at home, and her family is unable to manage her needs. She is jaundiced, frail, and has notable findings including mild abdominal distention with ascites and 3+ pitting edema of the lower extremities, as well as elevated lactate and early pneumonia findings on chest xray. She is due to start oral chemotherapy tablets today. Given her advanced malignancy, severe debility, and imminent threat to organ function, hospital admission is medically necessary for care home care and further management. The decision to admit is supported by her inability to perform basic activities of daily living, ongoing weakness, and the need for multidisciplinary evaluation regarding care home facility or rehabilitation placement. I will discuss the case with Dr. Montes for admission. The plan includes inpatient management, supportive care, and coordination with oncology and social work to address her complex needs and disposition. 1540h: I spoke with patients PCP Dr. Montes who accepts pt for admit. I, Rina Quiroz, am scribing for and in the presence of Dr. Carrero. Patient data External records reviewed:: [facility] previous records Clinical information provided by:: patient and family (daughter ) Social determinants that could affect healthcare access:: none Patient has the following chronic illnesses:: CAD s/p angioplasty and stent, hypertension, hyperlipidemia, metastatic liver and lung cancer with unknown primary, undergoing chemotherapy How is presenting disease/condition affected by chronic disease/condition?: exacerbated by Evaluation data The following diagnostics were reviewed and interpreted by me:: lab results and radiology exam(s) Lab and/or radiology exams considered but not ordered:: None Interpretation Summary: Ordering Physician: Tena Carrero MD Date of Service: 04/14/25 Procedure(s): US venous duplex LE BI Accession Number(s): [id number] cc: Eduardo Tlelo MD; Tena Carrero MD; Dogu Montes MD~ Examination: Venous duplex lower extremity sonogram, bilateral. Date and time of exam: April 14, 2025, 1419 hours INDICATIONS: Bilateral leg swelling 3 weeks, recent diagnosis liver cancer, 1 month ago Technique: Multiple sonographic images of the deep venous system have been obtained. B-mode/2-D grayscale imaging of vascular structures and Doppler spectral analysis (waveforms) and color performed Both legs are examined. Findings: Deep venous systems do not demonstrate abnormal echogenicity. All visualized deep veins exhibit compressibility. All visualized deep veins exhibit augmentation. Impression: Negative for deep vein thrombosis Dictated By: Eduadro Tello MD Signed By: <Electronically signed by Eduardo Tello MD in [place]> 04/14/25 1503 Ordering Physician: Tena Carrero MD Date of Service: 04/14/25 Procedure(s): XR chest 1V portable Accession Number(s): [id number] cc: Eduardo Tello MD; Tena Carrero MD; Doug Montes MD~ EXAMINATION: AP chest single view TECHNIQUE: AP portable upright chest single view Date and time: April 14, 2025, 1353 hours INDICATIONS: Weakness today, diagnosis malignant neoplasm of ill-defined sites, hepatic lesions, pulmonary nodules FINDINGS: Reduced inspiratory effort Mild pneumonia right base medially Minor prominence left ventricle Right internal jugular Port-A-Cath tip satisfactory position Prominent osteopenia IMPRESSION: Early pneumonia right base Dictated By: Eduardo Tello MD Signed By: <Electronically signed by Eduardo Tello MD in [place]> 04/14/25 1417 Medications / Prescriptions Medications or Prescriptions considered but not ordered:: None Medication administrations:: Medication Administration History Alprazolam (Alprazolam 0.25 Mg Tablet) 0.25 mg PO QDAY PRN PRN Reason: ANXIETY Stop: 04/19/25 16:29 Carvedilol (Carvedilol 3.125 Mg Tablet) 3.125 mg PO DAILY JEROME Stop: 05/14/25 16:29 Last Admin: 04/14/25 17:38 Dose: 3.125 mg Documented By: EF Escitalopram Oxalate (Escitalopram Oxalate 10 Mg Tablet) 10 mg PO DAILY JEROME Stop: 05/14/25 16:29 Last Admin: 04/14/25 17:39 Dose: 10 mg Documented By: EF Furosemide (Furosemide 20 Mg Tablet) 20 mg PO Q24H PRN PRN Reason: edema Stop: 05/14/25 16:29 Ceftriaxone Sodium/Dextrose (Rocephin/D5w 1gm Iv Premix) 1 gm in 50 mls @ 100 mls/hr IV QDAY JEROME Stop: 04/21/25 16:30 Last Admin: 04/14/25 17:38 Dose: 100 mls/hr Documented By: EF Prednisolone Acetate (Prednisolone Op Susp 1% 5 Ml Btl) 1 drop LEFT EYE QDAY JEROME Stop: 05/14/25 16:29 Last Admin: 04/14/25 17:39 Dose: 1 drop Documented By: EF Comments: Prochlorperazine Maleate (Prochlorperazine Maleate 5 Mg Tablet) 5 mg PO Q24H JEROME Stop: 05/14/25 16:29 Last Admin: 04/14/25 17:39 Dose: 5 mg Documented By: EF See above Consultations Consultation(s) initiated? (list below): Yes Consultation #1 (Physician, Specialty, Details): See course Diagnosis Weakness Differential Diagnosis: acute myocardial infarction, anemia, hypoglycemia, sepsis and dehydration Most likely diagnosis given after review of the tests above:: Pneumonia Elevated lactic acid Metastatic liver cancer Failure to thrive Admission Indicated Admission indicated?: indicated Admission Request Was there a request for admission?: Yes Admission Attestation Admission request attestation: Discussed case with [] from Hospitalist service regarding admission. Discussed patients ED course, exam findings, labs, and radiology results. The Hospitalist [agrees,declines] to accept the patient for admission. Disposition Plan Disposition Plan: Admit Discharge Plan Plan Patient Disposition: Admit Acute Care w/in Hospital Problem List Clinical Impression: Pneumonia, Elevated lactic acid level, Cancer, metastatic to liver, Adult failure to thrive
--- NOTE | 2025-04-14 13:36 | XR_ITS ---
Examination: Venous duplex lower extremity sonogram, bilateral. Date and time of exam: April 14, 2025, 1419 hours INDICATIONS: Bilateral leg swelling 3 weeks, recent diagnosis liver cancer, 1 month ago Technique: Multiple sonographic images of the deep venous system have been obtained. B-mode/2-D grayscale imaging of vascular structures and Doppler spectral analysis (waveforms) and color performed Both legs are examined. Findings: Deep venous systems do not demonstrate abnormal echogenicity. All visualized deep veins exhibit compressibility. All visualized deep veins exhibit augmentation. Impression: Negative for deep vein thrombosis
--- NOTE | 2025-04-14 13:37 | XR_ITS ---
EXAMINATION: AP chest single view TECHNIQUE: AP portable upright chest single view Date and time: April 14, 2025, 1353 hours INDICATIONS: Weakness today, diagnosis malignant neoplasm of ill-defined sites, hepatic lesions, pulmonary nodules FINDINGS: Reduced inspiratory effort Mild pneumonia right base medially Minor prominence left ventricle Right internal jugular Port-A-Cath tip satisfactory position Prominent osteopenia IMPRESSION: Early pneumonia right base
[2025-04-14 13:59] LABS: Basophils # (Auto) 0.0 Thou/mm3 (0.0-0.2); Basophils % (Auto) 0 % (0-2.5); Eosinophils # (Auto) 0.1 Thou/mm3 (0.0-0.5); Eosinophils % (Auto) 1 % (0-10); Hematocrit 28.5 % (36.0-46.0); Hemoglobin 8.9 g/dL (12.0-16.0); Immature Granulocytes Auto 0.07 Thou/mm3 (0.00-0.00); Lymphocytes # (Auto) 2.1 Thou/mm3 (1.0-4.8); Lymphocytes % (Auto) 19 % (10-50); Mean Corpuscular HGB Conc 31.2 g/dl (31.0-37.0); Mean Corpuscular Hemoglobin 26.0 pg (25.0-35.0); Mean Corpuscular Volume 83 fL (80-100); Monocytes # (Auto) 1.2 Thou/mm3 (0.0-0.8); Monocytes % (Auto) 11 % (0-12); Neutrophils # (Auto) 7.6 Thou/mm3 (1.8-7.7); Neutrophils % (Auto) 69 % (37-80); Nucleated Red Blood Cell # 0.00 Thou/mm3 (0.00-0.00); Nucleated Red Blood Cell % 0 /100 WBC (0); Platelet Count 208 Thou/mm3 (140-440); RDW Standard Deviation 65.9 fL (36.4-46.3); Red Blood Count 3.42 Miln/mm3 (4.00-5.20); White Blood Count 11.1 Thou/mm3 (3.6-11.0)
[2025-04-14 14:01] LABS: Lactate (Lactic Acid) 2.9 mMol/L (0.4-2.0)
[2025-04-14 14:02] LABS: Base Excess, Venous 4 (-3-3); O2 Saturation, Venous 93 % (96-97); PCO2, Venous 30 mmHg (36-56); PO2, Venous 69 mmHg (15-58); pH, Venous 7.55 (7.33-7.66)
[2025-04-14 14:28] LABS: Alanine Aminotransferase 122 U/L (10-49); Albumin, Serum 3.2 gm/dL (3.4-4.8); Albumin/Globulin Ratio 1.6 (1.2-2.2); Alkaline Phosphatase 507 U/L (46-116); Anion Gap 8 (7-16); Aspartate Amino Transferase 311 U/L (0-34); BUN/Creatinine Ratio 23 Ratio (12-20); Bilirubin,Total 5.5 mg/dL (0.3-1.2); Blood Urea Nitrogen 18 mg/dL (9-23); Calcium 8.4 mg/dL (8.3-10.6); Calcium (Corrected) 9.0 mg/dL (8.5-10.1); Carbon Dioxide 27.1 mMol/L (20.0-31.0); Chloride 105 mMol/L (98-107); Creatinine (Component) 0.8 mg/dL (0.6-1.3); Estimated Creatinine Clearance 51.6 mL/min (>60); Globulin 2.0 gm/dL (2.3-3.5); Glucose 108 mg/dL (74-106); Magnesium 2.5 mg/dL (1.6-2.6); Osmolality,Calculated 282 (275-295); Potassium 4.0 mMol/L (3.4-5.1); Sodium 140 mMol/L (136-145); Total Protein 5.2 gm/dL (5.7-8.2); eGFR > 60 See Note
--- NOTE | 2025-04-14 15:46 | PC.SS ---
SS attempted to meet with patient to complete initial assessment. Nursing staff were present in room changing the patient and requested that SS return at a later time.
[2025-04-14 15:59] LABS: Collection Type, Urine Clean Catch
[2025-04-14 16:06] LABS: Bilirubin,Urine Negative (Negative); Blood,Urine Negative (Negative); Clarity,Urine Clear (Clear/Hazy); Color,Urine Yellow (Lt Yel-Yel); Culture Indicated,Urine Not Indicated; Glucose, Urine Negative (Negative); Ketones,Urine Negative (Negative); Leukocyte Esterase,Urine Negative (Negative); Nitrite,Urine Negative (Negative); PH,Urine 5.5 (5.0-7.0); Protein,Urine Negative (Neg - Trace); RBC,Urine < 1 /hpf (0-3); Specific Gravity,Urine 1.018 (1.001-1.035); Squamous Epithelial Cell,Urine < 1 /hpf (0-5); Urobilinogen,Urine 4.0 mg/dL (0.0-1.0); WBC,Urine 1 /hpf (0-5)
[2025-04-14 16:15] LABS: Procalcitonin 0.36 ng/ml (0.0-0.49)
--- NOTE | 2025-04-14 16:32 | ESHP_ITS ---
Documentation for date of: 04/14/25 History of Present Illness History of Present Illness Chief complaint: Weakness, abdominal distention History of present illness: Informant daughter Ms. De is a 79-year-old unfortunate lady with past medical history significant for hypertension, dyslipidemia, coronary artery disease s/p angioplasty and stent, was admitted in February for weakness tiredness and shortness of breath and workup at that time showed metastatic liver cancer with unknown primary. Mets to liver, lung. Patient had a Port-A-Cath placed and is under the care of cancer center. Chemotherapy was supposed to be started next Friday. Patient continues to have significant weakness and unable to get up from the bed and her daughter brought her to the emergency department. Patient was admitted previously and discharged yesterday. She declined to go to rehab. However due to significant weakness today she agreed to go to rehab. Patient has paracentesis done yesterday. Patient has not been eating or drinking at home. Patient with significant edema secondary to hypoalbuminemia Current medications include alprazolam, carvedilol, Lexapro, prochlorperazine In the emergency department-blood pressure 118/52, heart rate 70. WBC 11.1, hemoglobin 8.9, platelets 208. Sodium 140, potassium 4.0, creatinine 0.8, lactic acid 2.8, magnesium 2.5, total bilirubin 5.5, AST 311, ALT 122, alk phos 507, albumin 3.2, Pro-Ross 0.36, urinalysis negative.Chest x-ray showed early right base pneumonia. Venous Doppler ultrasound showed no DVT in both legs. Patient admitted with a diagnosis of failure to thrive, ascites, significant weakness, gait imbalance and falls. Spoke to Aneta her daughter-patient made herself DNR/DNI. Wants to continue with chemotherapy. She went and saw Dr. Cobb this morning. Dr. Perales recommended p.o. chemo and hospital admission for discharging her to rehab as she is very weak. Physical therapy, discharge planning to rehab ordered. Home medications were reconciled. Review of Systems Review of Systems Narrative Review of Systems: CONSTITUTIONAL: Patient denies any fever, chills. Complaining of significant weakness HEENT: Denies any visual disturbances or hearing problems. CARDIOVASCULAR: Patient denies any chest pain. c/o shortness of breath, swelling in the lower extremities. PULMONARY: Patient c/o shortness of breath GASTROINTESTINAL: Complaining of abdominal distention GENITOURINARY: Patient denies any urinary symptoms of burning or frequency or hematuria, denies any form in the urine. SKIN: Denies any rash. MUSCULOSKELETAL: Gait imbalance and fall NEUROLOGICAL: Denies any neurological problems of strokes, seizures or confusion. Denies any memory problems. Failure to thrive Past Medical History Past Medical History NEUROLOGIC: Negative Neurological Disorders or Seizures CARDIAC: Positive Cardiac Disorders and Myocardial Infarction; Negative Cardiac Arrhythmia, Atrial Fibrillation, Hypercholesterolemia, Congestive Heart Failure, Hypertension or Hypotension RESPIRATORY: Negative Chronic Obstructive Pulmonary Disease (COPD) or Asthma GASTROINTESTINAL: Negative Gastrointestinal Disorders GENITOURINARY: Negative Genitourinary Disorders or Renal Disease REPRODUCTIVE: Positive Previous Pregnancies MUSCULOSKELETAL: Negative Musculoskeletal Disorders ENDOCRINE: Negative Diabetes Mellitus Type 1, Diabetes Mellitus Type 2, Hyperthyroidism, Hypothyroidism or Parathyroid Disease HEMATOLOGIC: Negative Blood Disorders or Sickle Cell Disease PSYCHO/SOCIAL: Positive Depression and Anxiety OTHER HISTORY: Positive Cancer; Negative Blood Transfusions, Blood Transfusion Reaction or Anesthesia Reactions Surgical History SURGICAL: Positive Coronary Stent, Cardiac Catheterization, Eye Surgery and Tonsillectomy; Negative Pacemaker Social History SMOKING STATUS: Former smoker SECOND HAND EXPOSURE: Yes Meds Home Medications and Allergies Home Medications ?Medication ?Instructions ?Recorded ?Confirmed ?Type alprazolam 0.25 mg tablet 0.25 mg PO .Q24 PRN anxiety 01/13/25 04/12/25 History carvedilol 3.125 mg tablet 3.125 mg PO DAILY 01/13/25 04/12/25 History escitalopram oxalate 10 mg tablet 10 mg PO DAILY 01/1304/12/25 History prednisolone acetate 1 % eye 1 drp Left eye .Q24 04/0604/12/25 History drops,suspension furosemide 20 mg tablet 20 mg PO Q24H PRN edema 03/2604/12/25 History prochlorperazine maleate 5 mg 5 mg PO Q24H 04/12/25 History tablet Allergies Allergy/AdvReac Type Severity Reaction Status Date / Time No Known Allergies Allergy Verified 04/14/25 11:07 Exam Vital Signs Temp Pulse Resp BP Pulse Ox O2 Del Method 36.9 C 72 17 119/48 L 95 Room Air 04/14/25 16:31 04/14/25 16:31 04/14/25 16:31 04/14/25 16:31 04/14/25 16:31 04/14/25 16:31 Narrative Exam GENERAL APPEARANCE: NAD NECK: Neck supple, no JVD or bruit CARDIOVASCULAR: Heart regular, no murmurs LUNGS/CHEST: Chest clear to auscultation. No rales, rhonchi, wheezing ABDOMEN: Soft, ascites noted EXTREMITIES: 2+ edema in the lower extremities SKIN: Skin exam normal without any rashes MUSCULOSKELETAL: In bed NEUROLOGICAL : No neurological deficits, able to move all her extremities Results: Labs 04/15/25 04:10 04/15/25 04:10 Labs: Short CBC 04/14/25 Range/Units 13:48 WBC 11.1 H (3.6-11.0) Thou/mm3 Hgb 8.9 L (12.0-16.0) g/dL Hct 28.5 L (36.0-46.0) % Plt Count 208 (140-440) Thou/mm3 BMP 04/14/25 13:48 Sodium 140 Potassium 4.0 Chloride 105 Carbon Dioxide 27.1 BUN 18 Creatinine 0.8 Glucose 108 H Calcium 8.4 Liver Function 04/14/25 Range/Units 13:48 Total Bilirubin 5.5 H D (0.3-1.2) mg/dL AST 311 H (0-34) U/L ALT 122 H (10-49) U/L Alkaline Phosphatase 507 H (46-116) U/L Albumin 3.2 L (3.4-4.8) gm/dL Urine 04/14/25 Range/Units 15:52 Urine Color Yellow (Lt Yel-Yel) Urine Clarity Clear (Clear/Hazy) Urine pH 5.5 (5.0-7.0) Ur Specific [place] 1.018 (1.001-1.035) Urine Protein Negative (Neg - Trace) Urine Glucose (UA) Negative (Negative) ABG Interpretation ABG results: 04/14/25 13:48 VBG pH 7.55 VBG pCO2 30 L VBG pO2 69 H VBG Base Excess 4 H Assessment & Plan Additional Assessment & Plan Additional Plan: 79-year-old female with CAD, HTN, and HLD presenting with weakness, gait imbalance, decreased appetite. 02/2025 admitted with multifocal hepatic lesions and pulmonary nodules, elevated LFTs, and elevated CEA? metastatic liver cancer of unknown primary. Patient had endoscopy, colonoscopy last visit. # pneumonia- add ceftriaxone # Multiple Hepatic Lesions / Hepatomegaly/liver cancer with primary unknown-f ailure to thrive-with significant weakness Went and saw Dr. Cobb-was prescribed p.o. chemo per daughter. Patient needs to go to rehab for continuation of chemotherapy. # Elevated Liver Enzymes Secondary to cancer-worsening # Pulmonary Nodules CT chest shows multiple non-calcified nodules suggestive of early metastatic disease. # Anemia Hgb down to 8.9. No signs of bleeding. Plan: * Monitor H/H daily * Transfuse PRN if Hgb <7 or symptomatic * Reassess post-procedure # Hypertension Stable, controlled on current meds. Plan: * Continue carvedilol * Monitor BP daily # Coronary Artery Disease s/p stent; currently stable, denies chest pain. Plan: * Resume aspirin for now * Hold statin due to LFT elevation * Add Coreg * Monitor cardiac enzymes and telemetry # Anxiety and Depression Stable on escitalopram and alprazolam PRN. Plan: * Continue home meds * Supportive care DVT prophylaxis: SCD GI prophylaxis: Not needed Diet: Cardiac diet Code Status: Patient requested DNR/DNI-daughter present Disposition Home with home health care Quality Measures Quality Measures none Advance care planning discussed with:: patient
[2025-04-14 16:56] LABS: Reflex Lactate? Y
[2025-04-14 17:17] LABS: Lactic Acid, 3 HR 2.8 mMol/L (0.4-2.0)
[2025-04-14] MEDS: cefTRIAXone/D5w 1gm IV premix 1 GM/50 ML BAG IV (17:38)
[2025-04-14] MEDS: prednisoLONE OP SUSP 1% 5 ML BTL 1 DROP LEFT EYE (17:39)
[2025-04-14] MEDS: PROCHLORPERAZINE MALEATE 5 MG TABLET PO (17:39)
[2025-04-14] MEDS: ESCITALOPRAM OXALATE 10 MG TABLET PO (17:39)
--- NOTE | 2025-04-14 19:00 | PC.NURSE ---
Patient arrived at 1839. Patient is alert and oriented to person, time and place. Lungs sounds diminished, bowel sounds active. Blt pitting edema 2+, right leg more swollen than left. Heels intact. Bed locked in lowest position, call light and personal belongings within reach.
[2025-04-15] VITALS (7 sets, daily range): BP systolic 101–119; BP diastolic 52–60; PULSE 69–88; RESP 16–19; TEMP 36.2–37.7; O2SAT 92–94; BMI 11.0; BMI 27.6
[2025-04-15 05:14] LABS: Basophils # (Auto) 0.1 Thou/mm3 (0.0-0.2); Basophils % (Auto) 1 % (0-2.5); Eosinophils # (Auto) 0.2 Thou/mm3 (0.0-0.5); Eosinophils % (Auto) 2 % (0-10); Hematocrit 26.2 % (36.0-46.0); Immature Granulocytes Auto 0.06 Thou/mm3 (0.00-0.00); Lymphocytes # (Auto) 2.0 Thou/mm3 (1.0-4.8); Lymphocytes % (Auto) 19 % (10-50); Mean Corpuscular HGB Conc 31.3 g/dl (31.0-37.0); Mean Corpuscular Hemoglobin 25.8 pg (25.0-35.0); Mean Corpuscular Volume 82 fL (80-100); Monocytes # (Auto) 1.0 Thou/mm3 (0.0-0.8); Monocytes % (Auto) 10 % (0-12); Neutrophils # (Auto) 6.8 Thou/mm3 (1.8-7.7); Neutrophils % (Auto) 68 % (37-80); Nucleated Red Blood Cell # 0.00 Thou/mm3 (0.00-0.00); Nucleated Red Blood Cell % 0 /100 WBC (0); Platelet Count 186 Thou/mm3 (140-440); RDW Standard Deviation 66.0 fL (36.4-46.3); Red Blood Count 3.18 Miln/mm3 (4.00-5.20); White Blood Count 10.1 Thou/mm3 (3.6-11.0)
[2025-04-15 05:26] LABS: Hemoglobin 8.2 g/dL (12.0-16.0)
[2025-04-15 05:41] LABS: Alanine Aminotransferase 111 U/L (10-49); Albumin, Serum 2.9 gm/dL (3.4-4.8); Albumin/Globulin Ratio 1.5 (1.2-2.2); Alkaline Phosphatase 501 U/L (46-116); Anion Gap 9 (7-16); Aspartate Amino Transferase 274 U/L (0-34); BUN/Creatinine Ratio 26 Ratio (12-20); Bilirubin,Total 4.9 mg/dL (0.3-1.2); Blood Urea Nitrogen 18 mg/dL (9-23); Calcium 8.1 mg/dL (8.3-10.6); Calcium (Corrected) 9.0 mg/dL (8.5-10.1); Carbon Dioxide 25.2 mMol/L (20.0-31.0); Chloride 104 mMol/L (98-107); Creatinine (Component) 0.7 mg/dL (0.6-1.3); Estimated Creatinine Clearance 58.9 mL/min (>60); Globulin 1.9 gm/dL (2.3-3.5); Glucose 95 mg/dL (74-106); Osmolality,Calculated 277 (275-295); Potassium 4.0 mMol/L (3.4-5.1); Sodium 138 mMol/L (136-145); Total Protein 4.8 gm/dL (5.7-8.2); eGFR > 60 See Note
[2025-04-15] MEDS: ASPIRIN EC 81 MG TABEC PO (08:57)
[2025-04-15] MEDS: cefTRIAXone/D5w 1gm IV premix 1 GM/50 ML BAG IV (08:57)
[2025-04-15] MEDS: ESCITALOPRAM OXALATE 10 MG TABLET PO (08:57)
--- NOTE | 2025-04-15 11:30 | PC.PT ---
Patient is safe to stand pivot transfer to a bedside commode with a FWW and 1 staff assist. RN made aware.
--- NOTE | 2025-04-15 11:44 | ESPR_ITS ---
Documentation for date of: 04/15/25 Subjective Subjective Interval history: Informant daughter Ms. De is a 79-year-old unfortunate lady with past medical history significant for hypertension, dyslipidemia, coronary artery disease s/p angioplasty and stent, was admitted in February for weakness tiredness and shortness of breath and workup at that time showed metastatic liver cancer with unknown primary. Mets to liver, lung. Patient had a Port-A-Cath placed and is under the care of cancer center. Chemotherapy was supposed to be started next Friday. Patient continues to have significant weakness and unable to get up from the bed and her daughter brought her to the emergency department. Patient was admitted previously and discharged yesterday. She declined to go to rehab. However due to significant weakness today she agreed to go to rehab. Patient has paracentesis done yesterday. Patient has not been eating or drinking at home. Patient with significant edema secondary to hypoalbuminemia Current medications include alprazolam, carvedilol, Lexapro, prochlorperazine In the emergency department-blood pressure 118/52, heart rate 70. WBC 11.1, hemoglobin 8.9, platelets 208. Sodium 140, potassium 4.0, creatinine 0.8, lactic acid 2.8, magnesium 2.5, total bilirubin 5.5, AST 311, ALT 122, alk phos 507, albumin 3.2, Pro-Ross 0.36, urinalysis negative.Chest x-ray showed early right base pneumonia. Venous Doppler ultrasound showed no DVT in both legs. Patient admitted with a diagnosis of failure to thrive, ascites, significant weakness, gait imbalance and falls. Spoke to Aneta her daughter-patient made herself DNR/DNI. Wants to continue with chemotherapy. She went and saw Dr. Cobb this morning. Dr. Perales recommended p.o. chemo and hospital admission for discharging her to rehab as she is very weak. Physical therapy, discharge planning to rehab ordered. Home medications were reconciled. 04/15/2025 patient currently seen in medical floor. Still feeling extremely fatigued and weak. Physical therapy ordered. Patient requesting to go to rehab. Labs/medications reviewed. Patient complaining of sleep problems. Will add temazepam. Hypoalbuminemia causing third spacing-added Ensure Review of Systems Review of Systems Narrative Review of Systems: CONSTITUTIONAL: Patient denies any fever, chills. Complaining of significant weakness HEENT: Denies any visual disturbances or hearing problems. CARDIOVASCULAR: Patient denies any chest pain. c/o shortness of breath, swelling in the lower extremities. PULMONARY: Patient c/o shortness of breath GASTROINTESTINAL: Complaining of abdominal distention GENITOURINARY: Patient denies any urinary symptoms of burning or frequency or hematuria, denies any form in the urine. SKIN: Denies any rash. MUSCULOSKELETAL: Gait imbalance and fall NEUROLOGICAL: Denies any neurological problems of strokes, seizures or confusion. Denies any memory problems. Failure to thrive Exam Vital Signs Temp Pulse Resp BP Pulse Ox O2 Del Method 37.7 C 76 16 101/60 92 L Room Air 04/15/25 07:35 04/15/25 08:57 04/15/25 07:35 04/15/25 08:57 04/15/25 07:35 04/15/25 07:35 Narrative Exam GENERAL APPEARANCE: NAD NECK: Neck supple, no JVD or bruit CARDIOVASCULAR: Heart regular, no murmurs LUNGS/CHEST: Chest clear to auscultation. No rales, rhonchi, wheezing ABDOMEN: Soft, ascites noted EXTREMITIES: 2+ edema in the lower extremities SKIN: Skin exam normal without any rashes MUSCULOSKELETAL: In bed NEUROLOGICAL : No neurological deficits, able to move all her extremities Objective Labs 04/15/25 04:10 04/15/25 04:10 Labs: Laboratory Results - last 24 hr 04/14/25 04/14/25 04/14/25 13:48 15:52 17:12 WBC 11.1 H RBC 3.42 L Hgb 8.9 L Hct 28.5 L MCV 83 MCH 26.0 MCHC 31.2 RDW Std Deviation 65.9 H Plt Count 208 Neut % (Auto) 69 Lymph % (Auto) 19 [place] % (Auto) 11 Eos % (Auto) 1 Baso % (Auto) 0 Neut # (Auto) 7.6 Lymph # (Auto) 2.1 [place] # (Auto) 1.2 H Eos # (Auto) 0.1 Baso # (Auto) 0.0 Immature Gran # (Auto) 0.07 H Absolute Nucleated RBC 0.00 Immature Gran % 1 H Nucleated RBC % 0 VBG pH 7.55 VBG pCO2 30 L VBG pO2 69 H VBG O2 Sat (Bc) 93 L VBG Base Excess 4 H Sodium 140 Potassium 4.0 Chloride 105 Carbon Dioxide 27.1 Anion Gap 8 BUN 18 Creatinine 0.8 Estim Creat Clear Calc 51.6 L eGFR > 60 BUN/Creatinine Ratio 23 H Glucose 108 H Calculated Osmolality 282 Lactic Acid 2.9 H 2.8 H Calcium 8.4 Corrected Calcium 9.0 Magnesium 2.5 Total Bilirubin 5.5 H D AST 311 H ALT 122 H Alkaline Phosphatase 507 H Total Protein 5.2 L Albumin 3.2 L Globulin 2.0 L Albumin/Globulin Ratio 1.6 Procalcitonin 0.36 Ur Collection Type Clean Catch Urine Color Yellow Urine Clarity Clear Urine pH 5.5 Ur Specific [place] 1.018 Urine Protein Negative Urine Glucose (UA) Negative Urine Ketones Negative Urine Blood Negative Urine Nitrite Negative Urine Bilirubin Negative Urine Urobilinogen (Auto) 4.0 Ur Leukocyte Esterase Negative Urine RBC < 1 Urine WBC 1 Ur Squamous Epith Cells < 1 Urine Bacteria None Ur Culture Indicated? Not Indicated 04/15/25 04:10 WBC 10.1 RBC 3.18 L Hgb 8.2 L Hct 26.2 L MCV 82 MCH 25.8 MCHC 31.3 RDW Std Deviation 66.0 H Plt Count 186 Neut % (Auto) 68 Lymph % (Auto) 19 [place] % (Auto) 10 Eos % (Auto) 2 Baso % (Auto) 1 Neut # (Auto) 6.8 Lymph # (Auto) 2.0 [place] # (Auto) 1.0 H Eos # (Auto) 0.2 Baso # (Auto) 0.1 Immature Gran # (Auto) 0.06 H Absolute Nucleated RBC 0.00 Immature Gran % 1 H Nucleated RBC % 0 VBG pH VBG pCO2 VBG pO2 VBG O2 Sat (Bc) VBG Base Excess Sodium 138 Potassium 4.0 Chloride 104 Carbon Dioxide 25.2 Anion Gap 9 BUN 18 Creatinine 0.7 Estim Creat Clear Calc 58.9 L eGFR > 60 BUN/Creatinine Ratio 26 H Glucose 95 Calculated Osmolality 277 Lactic Acid Calcium 8.1 L Corrected Calcium 9.0 Magnesium Total Bilirubin 4.9 H D AST 274 H ALT 111 H Alkaline Phosphatase 501 H Total Protein 4.8 L Albumin 2.9 L Globulin 1.9 L Albumin/Globulin Ratio 1.5 Procalcitonin Ur Collection Type Urine Color Urine Clarity Urine pH Ur Specific [place] Urine Protein Urine Glucose (UA) Urine Ketones Urine Blood Urine Nitrite Urine Bilirubin Urine Urobilinogen (Auto) Ur Leukocyte Esterase Urine RBC Urine WBC Ur Squamous Epith Cells Urine Bacteria Ur Culture Indicated? ABG Interpretation ABG results: 04/14/25 13:48 VBG pH 7.55 VBG pCO2 30 L VBG pO2 69 H VBG Base Excess 4 H Assessment & Plan Additional Assessment & Plan Additional Plan: 79-year-old female with CAD, HTN, and HLD presenting with weakness, gait imbalance, decreased appetite. 02/2025 admitted with multifocal hepatic lesions and pulmonary nodules, elevated LFTs, and elevated CEA? metastatic liver cancer of unknown primary. Patient had endoscopy, colonoscopy last visit. # pneumonia- add ceftriaxone # Multiple Hepatic Lesions / Hepatomegaly/liver cancer with primary unknown-f ailure to thrive-with significant weakness Went and saw Dr. Cobb-was prescribed p.o. chemo per daughter. Patient needs to go to rehab for continuation of chemotherapy. # Elevated Liver Enzymes Secondary to cancer-worsening # Pulmonary Nodules CT chest shows multiple non-calcified nodules suggestive of early metastatic disease. # Anemia Hgb down to 8.9. No signs of bleeding. Plan: * Monitor H/H daily * Transfuse PRN if Hgb <7 or symptomatic * Reassess post-procedure # Hypertension Stable, controlled on current meds. Plan: * Continue carvedilol * Monitor BP daily # Coronary Artery Disease s/p stent; currently stable, denies chest pain. Plan: * Resume aspirin for now * Hold statin due to LFT elevation * Add Coreg * Monitor cardiac enzymes and telemetry # Anxiety and Depression Stable on escitalopram and alprazolam PRN. Plan: * Continue home meds * Supportive care DVT prophylaxis: heparin sq GI prophylaxis: Not needed Diet: Cardiac diet Code Status: Patient requested DNR/DNI-daughter present Disposition Home with home health care Quality - progress note Quality Measures Quality Measures: VTE prophylaxis Reason for Continued Stay Reason for Continued Stay: further monitoring
--- NOTE | 2025-04-15 12:59 | PC.SS ---
Addendum entered by Kaleigh Calvert 04/15/25 14:58: [facility] accepted pt, booked on [facility] Original Note: SNF referral submitted on behalf of pt/family request. #1 preference is [facility].
[2025-04-15] MEDS: HEPARIN SOD INJ 5000 UNIT/ML VIAL SC ×2 (13:48→21:19)
--- NOTE | 2025-04-15 14:56 | PC.SS ---
Chanell De is a 80-year-old female admitted to [facility] for Failure to Thrive. ?SS conducted over the phone contact with the pts dtr Aneta [phone], Role and reason explained. Per Aneta, she is th pt surrogate decision maker. Pt lives with her elderly who is unable to help care for her. Aneta reports they are interested in pt going to short-term rehab. Their preference is [facility]. Pt PCP is Dr. Montes. No further needs identified. SS will remain available. DM: Aneta Knight DC plan: [facility]
--- NOTE | 2025-04-15 15:05 | PC.SS ---
PASRR LVL 1 completed and downloaded, SS also sent to [facility] via [facility]. Pt needs 3 [place] stay and can DC 04/18
[2025-04-15] MEDS: PROCHLORPERAZINE MALEATE 5 MG TABLET PO (17:02)
[2025-04-15] MEDS: TEMAZEPAM 15 MG CAPSULE PO (19:20)
[2025-04-16] VITALS (7 sets, daily range): BP systolic 97–115; BP diastolic 52–58; PULSE 70–92; RESP 16–20; TEMP 36.1–37.1; O2SAT 93–94
[2025-04-16] MEDS: HEPARIN SOD INJ 5000 UNIT/ML VIAL SC ×3 (05:16→21:01)
[2025-04-16 06:01] LABS: Basophils # (Auto) 0.1 Thou/mm3 (0.0-0.2); Basophils % (Auto) 1 % (0-2.5); Eosinophils # (Auto) 0.2 Thou/mm3 (0.0-0.5); Eosinophils % (Auto) 2 % (0-10); Hematocrit 26.7 % (36.0-46.0); Immature Granulocytes Auto 0.09 Thou/mm3 (0.00-0.00); Lymphocytes # (Auto) 2.7 Thou/mm3 (1.0-4.8); Lymphocytes % (Auto) 23 % (10-50); Mean Corpuscular HGB Conc 31.1 g/dl (31.0-37.0); Mean Corpuscular Hemoglobin 25.6 pg (25.0-35.0); Mean Corpuscular Volume 82 fL (80-100); Monocytes # (Auto) 1.2 Thou/mm3 (0.0-0.8); Monocytes % (Auto) 10 % (0-12); Neutrophils # (Auto) 7.6 Thou/mm3 (1.8-7.7); Neutrophils % (Auto) 64 % (37-80); Nucleated Red Blood Cell # 0.00 Thou/mm3 (0.00-0.00); Nucleated Red Blood Cell % 0 /100 WBC (0); Platelet Count 198 Thou/mm3 (140-440); RDW Standard Deviation 65.0 fL (36.4-46.3); Red Blood Count 3.24 Miln/mm3 (4.00-5.20); White Blood Count 11.9 Thou/mm3 (3.6-11.0)
[2025-04-16 06:04] LABS: Hemoglobin 8.3 g/dL (12.0-16.0)
--- NOTE | 2025-04-16 06:11 | PC.NURSE ---
attempted to do med rec, patient is unable to recall what medications she is taking and states she will see if family can assist.
[2025-04-16 06:37] LABS: Alanine Aminotransferase 105 U/L (10-49); Albumin, Serum 2.9 gm/dL (3.4-4.8); Anion Gap 10 (7-16); Aspartate Amino Transferase 247 U/L (0-34); BUN/Creatinine Ratio 25 Ratio (12-20); Bilirubin,Total 4.1 mg/dL (0.3-1.2); Blood Urea Nitrogen 20 mg/dL (9-23); Calcium 8.2 mg/dL (8.3-10.6); Calcium (Corrected) 9.1 mg/dL (8.5-10.1); Carbon Dioxide 22.7 mMol/L (20.0-31.0); Chloride 103 mMol/L (98-107); Creatinine (Component) 0.8 mg/dL (0.6-1.3); Estimated Creatinine Clearance 50.3 mL/min (>60); Glucose 102 mg/dL (74-106); Osmolality,Calculated 274 (275-295); Potassium 4.4 mMol/L (3.4-5.1); Sodium 136 mMol/L (136-145); Total Protein 5.0 gm/dL (5.7-8.2); eGFR > 60 See Note
[2025-04-16 06:38] LABS: Albumin/Globulin Ratio 1.4 (1.2-2.2); Alkaline Phosphatase 523 U/L (46-116); Globulin 2.1 gm/dL (2.3-3.5)
[2025-04-16] MEDS: cefTRIAXone/D5w 1gm IV premix 1 GM/50 ML BAG IV (08:33)
[2025-04-16] MEDS: ESCITALOPRAM OXALATE 10 MG TABLET PO (08:33)
[2025-04-16] MEDS: ASPIRIN EC 81 MG TABEC PO (08:33)
--- NOTE | 2025-04-16 11:39 | PD.RESPRO ---
Documentation for date of: 04/16/25 Subjective Subjective Interval history: Informant daughter Ms. De is a 79-year-old unfortunate lady with past medical history significant for hypertension, dyslipidemia, coronary artery disease s/p angioplasty and stent, was admitted in February for weakness tiredness and shortness of breath and workup at that time showed metastatic liver cancer with unknown primary. Mets to liver, lung. Patient had a Port-A-Cath placed and is under the care of cancer center. Chemotherapy was supposed to be started next Friday. Patient continues to have significant weakness and unable to get up from the bed and her daughter brought her to the emergency department. Patient was admitted previously and discharged yesterday. She declined to go to rehab. However due to significant weakness today she agreed to go to rehab. Patient has paracentesis done yesterday. Patient has not been eating or drinking at home. Patient with significant edema secondary to hypoalbuminemia Current medications include alprazolam, carvedilol, Lexapro, prochlorperazine In the emergency department-blood pressure 118/52, heart rate 70. WBC 11.1, hemoglobin 8.9, platelets 208. Sodium 140, potassium 4.0, creatinine 0.8, lactic acid 2.8, magnesium 2.5, total bilirubin 5.5, AST 311, ALT 122, alk phos 507, albumin 3.2, Pro-Ross 0.36, urinalysis negative.Chest x-ray showed early right base pneumonia. Venous Doppler ultrasound showed no DVT in both legs. Patient admitted with a diagnosis of failure to thrive, ascites, significant weakness, gait imbalance and falls. Spoke to Aneta her daughter-patient made herself DNR/DNI. Wants to continue with chemotherapy. She went and saw Dr. Cobb this morning. Dr. Perales recommended p.o. chemo and hospital admission for discharging her to rehab as she is very weak. Physical therapy, discharge planning to rehab ordered. Home medications were reconciled. 04/15/2025 patient currently seen in medical floor. Still feeling extremely fatigued and weak. Physical therapy ordered. Patient requesting to go to rehab. Labs/medications reviewed. Patient complaining of sleep problems. Will add temazepam. Hypoalbuminemia causing third spacing-added Ensure 04/16/2025: Patient seen and examined bedside this morning. Endorses improvement of her weakness. Patient worked with physical therapy. Currently pending completion of 3 midnights prior to discharge to [place]. Anticipate discharge on 04/18. Exam Vital Signs Temp Pulse Resp BP Pulse Ox O2 Del Method 97.3 F 92 20 108/57 L 93 L Room Air 04/16/25 08:00 04/16/25 08:33 04/16/25 08:00 04/16/25 08:33 04/16/25 08:00 04/16/25 08:00 Narrative Exam GENERAL APPEARANCE: NAD NECK: Neck supple, no JVD or bruit CARDIOVASCULAR: Heart regular, no murmurs LUNGS/CHEST: Chest clear to auscultation. No rales, rhonchi, wheezing ABDOMEN: Soft, ascites noted EXTREMITIES: 2+ edema in the lower extremities SKIN: Skin exam normal without any rashes MUSCULOSKELETAL: In bed NEUROLOGICAL : No neurological deficits, able to move all her extremities Objective Labs 04/16/25 05:36 04/16/25 05:36 Labs: Laboratory Results - last 24 hr 04/16/25 05:36 WBC 11.9 H RBC 3.24 L Hgb 8.3 L Hct 26.7 L MCV 82 MCH 25.6 MCHC 31.1 RDW Std Deviation 65.0 H Plt Count 198 Neut % (Auto) 64 Lymph % (Auto) 23 [place] % (Auto) 10 Eos % (Auto) 2 Baso % (Auto) 1 Neut # (Auto) 7.6 Lymph # (Auto) 2.7 [place] # (Auto) 1.2 H Eos # (Auto) 0.2 Baso # (Auto) 0.1 Immature Gran # (Auto) 0.09 H Absolute Nucleated RBC 0.00 Immature Gran % 1 H Nucleated RBC % 0 Sodium 136 Potassium 4.4 Chloride 103 Carbon Dioxide 22.7 Anion Gap 10 BUN 20 Creatinine 0.8 Estim Creat Clear Calc 50.3 L eGFR > 60 BUN/Creatinine Ratio 25 H Glucose 102 Calculated Osmolality 274 L Calcium 8.2 L Corrected Calcium 9.1 Total Bilirubin 4.1 H D AST 247 H ALT 105 H Alkaline Phosphatase 523 H D Total Protein 5.0 L Albumin 2.9 L Globulin 2.1 L Albumin/Globulin Ratio 1.4 ABG Interpretation ABG results: 04/14/25 13:48 VBG pH 7.55 VBG pCO2 30 L VBG pO2 69 H VBG Base Excess 4 H Quality Measures Quality Measures none Advance care planning discussed with:: patient Assessment & Plan Assessment Current Active Medications: Generic Name Dose Route Start Last Admin Trade Name Abdon PRN Reason Stop Dose Admin Alprazolam 0.25 mg 04/14/25 16:30 04/16/25 05:59 Alprazolam 0.25 Mg Tablet PO 04/19/25 16:29 0.25 mg QDAY PRN Administration ANXIETY Aspirin 81 mg 04/15/25 09:00 04/16/25 08:33 Aspirin Ec 81 Mg Tabec PO 05/15/25 08:59 81 mg QDAY JEROME Administration Carvedilol 3.125 mg 04/14/25 16:30 04/16/25 08:33 Carvedilol 3.125 Mg Tablet PO 05/14/25 16:29 3.125 mg DAILY JEROME Administration Escitalopram Oxalate 10 mg 04/14/25 16:30 04/16/25 08:33 Escitalopram Oxalate 10 Mg Tablet PO 05/14/25 16:29 10 mg DAILY JEROME Administration Furosemide 20 mg 04/14/25 16:30 Furosemide 20 Mg Tablet PO 05/14/25 16:29 Q24H PRN edema Heparin Sodium (Porcine) 5,000 unit 04/15/25 14:00 04/16/25 05:16 Heparin Sod Inj 5000 Unit/Ml Vial SC 04/29/25 13:59 5,000 unit Q8HR JEROME Administration Ceftriaxone Sodium/Dextrose 1 gm in 50 mls @ 100 mls/hr 04/14/25 16:31 04/16/25 08:33 Rocephin/D5w 1gm Iv Premix IV 04/21/25 16:30 100 mls/hr QDAY JEROME Administration Prednisolone Acetate 1 drop 04/14/25 16:30 04/16/25 08:34 Prednisolone Op Susp 1% 5 Ml Btl LEFT EYE 05/14/25 16:29 Not Given QDAY JEROME Prochlorperazine Maleate 5 mg 04/14/25 16:30 04/15/25 17:02 Prochlorperazine Maleate 5 Mg Tablet PO 05/14/25 16:29 5 mg Q24H JEROME Administration Temazepam 15 mg 04/15/25 12:04 04/15/25 19:20 Temazepam 15 Mg Capsule PO 04/20/25 12:03 15 mg HS PRN Administration INSOMNIA Plan 79-year-old female with CAD, HTN, and HLD presenting with weakness, gait imbalance, decreased appetite. 02/2025 admitted with multifocal hepatic lesions and pulmonary nodules, elevated LFTs, and elevated CEA? metastatic liver cancer of unknown primary. Patient had endoscopy, colonoscopy last visit. # Community-acquired pneumonia Patient had some nonproductive cough X-ray on admission showed right base pneumonia Plan: ? Continue ceftriaxone 1 g IV daily started on [04/14? # Multiple Hepatic Lesions / Hepatomegaly/liver cancer with primary unknown-failure to thrive-with significant weakness Went and saw Dr. Cobb-was prescribed p.o. chemo per daughter. Patient needs to go to rehab for continuation of chemotherapy. # Elevated Liver Enzymes Secondary to cancer-worsening # Pulmonary Nodules CT chest shows multiple non-calcified nodules suggestive of early metastatic disease. # Anemia Hgb down to 8.9. No signs of bleeding. Plan: Monitor H/H daily Transfuse PRN if Hgb <7 or symptomatic Reassess post-procedure # Hypertension Stable, controlled on current meds. Plan: Continue carvedilol Monitor BP daily # Coronary Artery Disease s/p stent; currently stable, denies chest pain. Plan: Resume aspirin for now Hold statin due to LFT elevation Add Coreg Monitor cardiac enzymes and telemetry # Anxiety and Depression Stable on escitalopram and alprazolam PRN. Plan: Continue home meds Supportive care DVT prophylaxis: heparin sq GI prophylaxis: Not needed Diet: Cardiac diet Code Status: Patient requested DNR/DNI-daughter present Disposition : Pending 3 midnight stay prior to discharge to [facility] acute rehab. Anticipate discharge on 04/18. Plan of care discussed with Attending Dr. Jyoti Caruso MD PGY 2 Disclaimer: This note was dictated by speech recognition. Minor errors in dialysis equipment technician may be present due to voice recognition software. Attending Provider Attestation/Addendum Patient currently seen and examined with resident physician Dr. Caruso. Note reviewed, agree with findings and recommendations. Patient currently seen in medical floor. Labs, vital signs stable. Pending discharge planning to rehab-on Friday
[2025-04-16] MEDS: PROCHLORPERAZINE MALEATE 5 MG TABLET PO (17:14)
[2025-04-16] MEDS: TEMAZEPAM 15 MG CAPSULE PO (19:34)
[2025-04-17] VITALS (8 sets, daily range): BP systolic 95–110; BP diastolic 48–57; PULSE 77–85; RESP 16–20; TEMP 36.2–37; O2SAT 92–97; BMI 11.0
[2025-04-17] MEDS: HEPARIN SOD INJ 5000 UNIT/ML VIAL SC ×3 (05:27→21:15)
[2025-04-17] MEDS: ESCITALOPRAM OXALATE 10 MG TABLET PO (08:41)
[2025-04-17] MEDS: cefTRIAXone/D5w 1gm IV premix 1 GM/50 ML BAG IV (08:41)
[2025-04-17] MEDS: ASPIRIN EC 81 MG TABEC PO (08:41)
--- NOTE | 2025-04-17 11:25 | ESPR_ITS ---
Documentation for date of: 04/17/25 Subjective Subjective Interval history: Informant daughter Ms. De is a 79-year-old unfortunate lady with past medical history significant for hypertension, dyslipidemia, coronary artery disease s/p angioplasty and stent, was admitted in February for weakness tiredness and shortness of breath and workup at that time showed metastatic liver cancer with unknown primary. Mets to liver, lung. Patient had a Port-A-Cath placed and is under the care of cancer center. Chemotherapy was supposed to be started next Friday. Patient continues to have significant weakness and unable to get up from the bed and her daughter brought her to the emergency department. Patient was admitted previously and discharged yesterday. She declined to go to rehab. However due to significant weakness today she agreed to go to rehab. Patient has paracentesis done yesterday. Patient has not been eating or drinking at home. Patient with significant edema secondary to hypoalbuminemia Current medications include alprazolam, carvedilol, Lexapro, prochlorperazine In the emergency department-blood pressure 118/52, heart rate 70. WBC 11.1, hemoglobin 8.9, platelets 208. Sodium 140, potassium 4.0, creatinine 0.8, lactic acid 2.8, magnesium 2.5, total bilirubin 5.5, AST 311, ALT 122, alk phos 507, albumin 3.2, Pro-Ross 0.36, urinalysis negative.Chest x-ray showed early right base pneumonia. Venous Doppler ultrasound showed no DVT in both legs. Patient admitted with a diagnosis of failure to thrive, ascites, significant weakness, gait imbalance and falls. Spoke to Aneta her daughter-patient made herself DNR/DNI. Wants to continue with chemotherapy. She went and saw Dr. Cobb this morning. Dr. Perales recommended p.o. chemo and hospital admission for discharging her to rehab as she is very weak. Physical therapy, discharge planning to rehab ordered. Home medications were reconciled. 04/15/2025 patient currently seen in medical floor. Still feeling extremely fatigued and weak. Physical therapy ordered. Patient requesting to go to rehab. Labs/medications reviewed. Patient complaining of sleep problems. Will add temazepam. Hypoalbuminemia causing third spacing-added Ensure 04/16/2025: Patient seen and examined bedside this morning. Endorses improvement of her weakness. Patient worked with physical therapy. Currently pending completion of 3 midnights prior to discharge to [place]. Anticipate discharge on 04/18. 04/17/2025: Patient seen and examined at bedside this morning. Her was present. Patient again endorses further improvement of her generalized weakness. Pending completion of the 3 midnights prior to discharge to [place] acute rehab. Anticipate discharge tomorrow on 04/18. Exam Vital Signs Temp Pulse Resp BP Pulse Ox O2 Del Method 98 F 79 16 104/56 L 92 L Room Air 04/17/25 07:58 04/17/25 08:41 04/17/25 07:58 04/17/25 08:41 04/17/25 07:58 04/17/25 07:58 Narrative Exam GENERAL APPEARANCE: NAD NECK: Neck supple, no JVD or bruit CARDIOVASCULAR: Heart regular, no murmurs LUNGS/CHEST: Chest clear to auscultation. No rales, rhonchi, wheezing ABDOMEN: Soft, ascites noted EXTREMITIES: 2+ edema in the lower extremities SKIN: Skin exam normal without any rashes MUSCULOSKELETAL: In bed NEUROLOGICAL : No neurological deficits, able to move all her extremities Objective Labs 04/18/25 04:40 04/18/25 04:40 ABG Interpretation ABG results: 04/14/25 13:48 VBG pH 7.55 VBG pCO2 30 L VBG pO2 69 H VBG Base Excess 4 H Quality Measures Quality Measures none Advance care planning discussed with:: patient Assessment & Plan Assessment Current Active Medications: Generic Name Dose Route Start Last Admin Trade Name Freq PRN Reason Stop Dose Admin Alprazolam 0.25 mg 04/14/25 16:30 04/16/25 05:59 Alprazolam 0.25 Mg Tablet PO 04/19/25 16:29 0.25 mg QDAY PRN Administration ANXIETY Aspirin 81 mg 04/15/25 09:00 04/17/25 08:41 Aspirin Ec 81 Mg Tabec PO 05/15/25 08:59 81 mg QDAY JEROME Administration Carvedilol 3.125 mg 04/14/25 16:30 04/17/25 08:41 Carvedilol 3.125 Mg Tablet PO 05/14/25 16:29 3.125 mg DAILY JEROME Administration Escitalopram Oxalate 10 mg 04/14/25 16:30 04/17/25 08:41 Escitalopram Oxalate 10 Mg Tablet PO 05/14/25 16:29 10 mg DAILY JEROME Administration Furosemide 20 mg 04/14/25 16:30 Furosemide 20 Mg Tablet PO 05/14/25 16:29 Q24H PRN edema Heparin Sodium (Porcine) 5,000 unit 04/15/25 14:00 04/17/25 05:27 Heparin Sod Inj 5000 Unit/Ml Vial SC 04/29/25 13:59 5,000 unit Q8HR JEROME Administration Ceftriaxone Sodium/Dextrose 1 gm in 50 mls @ 100 mls/hr 04/14/25 16:31 04/17/25 08:41 Rocephin/D5w 1gm Iv Premix IV 04/21/25 16:30 100 mls/hr QDAY JEROME Administration Prednisolone Acetate 1 drop 04/14/25 16:30 04/17/25 08:42 Prednisolone Op Susp 1% 5 Ml Btl LEFT EYE 05/14/25 16:29 Not Given QDAY JEROME Prochlorperazine Maleate 5 mg 04/14/25 16:30 04/16/25 17:14 Prochlorperazine Maleate 5 Mg Tablet PO 05/14/25 16:29 5 mg Q24H JEROME Administration Temazepam 15 mg 04/15/25 12:04 04/16/25 19:34 Temazepam 15 Mg Capsule PO 04/20/25 12:03 15 mg HS PRN Administration INSOMNIA Plan 79-year-old female with CAD, HTN, and HLD presenting with weakness, gait imbalance, decreased appetite. 02/2025 admitted with multifocal hepatic lesions and pulmonary nodules, elevated LFTs, and elevated CEA? metastatic liver cancer of unknown primary. Patient had endoscopy, colonoscopy last visit. # Community-acquired pneumonia Patient had some nonproductive cough X-ray on admission showed right base pneumonia Plan: ? Continue ceftriaxone 1 g IV daily started on [04/14?. To complete a total of a 5-day course on 04/18 ? Patient will complete her 3 midnights tonight and anticipate discharge to [place] acute rehab on 04/18/2025. # Multiple Hepatic Lesions / Hepatomegaly/liver cancer with primary unknown-f ailure to thrive-with significant weakness Went and saw Dr. Cobb-was prescribed p.o. chemo per daughter. Patient needs to go to rehab for continuation of chemotherapy. # Elevated Liver Enzymes Secondary to cancer-worsening # Pulmonary Nodules CT chest shows multiple non-calcified nodules suggestive of early metastatic disease. # Anemia Hgb down to 8.9. No signs of bleeding. Plan: * Monitor H/H daily * Transfuse PRN if Hgb <7 or symptomatic * Reassess post-procedure # Hypertension Stable, controlled on current meds. Plan: * Continue carvedilol * Monitor BP daily # Coronary Artery Disease s/p stent; currently stable, denies chest pain. Plan: * Resume aspirin for now * Hold statin due to LFT elevation * Add Coreg * Monitor cardiac enzymes and telemetry # Anxiety and Depression Stable on escitalopram and alprazolam PRN. Plan: * Continue home meds * Supportive care DVT prophylaxis: heparin sq GI prophylaxis: Not needed Diet: Cardiac diet Code Status: Patient requested DNR/DNI-daughter present Disposition : Pending 3 midnight stay prior to discharge to [place] acute rehab. Anticipate discharge on 04/18. Plan of care discussed with Attending Dr. Jyoti Caruso MD PGY 2 Disclaimer: This note was dictated by speech recognition. Minor errors in manager beverage may be present due to voice recognition software. Attending Provider Attestation/Addendum Patient currently seen and examined with resident physician Dr. Seth. Note reviewed, agree with findings and recommendations. Patient currently seen in medical floor. Labs, vital signs stable. DC today Plan of care discussed with at bedside
--- NOTE | 2025-04-17 13:29 | PC.SS ---
Addendum entered by Kaleigh Calvert 04/17/25 15:13: SS attempted to contact dtr [phone], VM left to inform her of DC tomorrow Original Note: SS spoke to Dr. Montes and she stated pt will DC tomorrow to [facility]. SS reached out to [facility] and she stated they can bulk picker pt. Pending ETA for tomorrow DC.
[2025-04-17] MEDS: PROCHLORPERAZINE MALEATE 5 MG TABLET PO (16:41)
--- NOTE | 2025-04-17 17:28 | XR_ITS ---
EXAMINATION: AP chest single view TECHNIQUE: AP portable sitting chest single view Date and time: April 17, 2025, 1740 hours, comparison April 14, 2025 INDICATIONS: Chest pain today. FINDINGS: Mild enlargement left ventricle Mild vascular congestion. Right internal jugular Port-A-Cath tip satisfactory position. No lobar pneumonia. Prominent osteopenia IMPRESSION: Mild vascular congestion
--- NOTE | 2025-04-17 17:29 | EKG_ITS ---
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
[2025-04-17] MEDS: ACETAMINOPHEN 325 MG TABLET 650 MG PO (17:45)
[2025-04-17 17:50] LABS: Basophils # (Auto) 0.1 Thou/mm3 (0.0-0.2); Basophils % (Auto) 1 % (0-2.5); Eosinophils # (Auto) 0.3 Thou/mm3 (0.0-0.5); Eosinophils % (Auto) 3 % (0-10); Hematocrit 26.4 % (36.0-46.0); Immature Granulocytes Auto 0.06 Thou/mm3 (0.00-0.00); Lymphocytes # (Auto) 2.5 Thou/mm3 (1.0-4.8); Lymphocytes % (Auto) 23 % (10-50); Mean Corpuscular HGB Conc 31.4 g/dl (31.0-37.0); Mean Corpuscular Hemoglobin 25.8 pg (25.0-35.0); Mean Corpuscular Volume 82 fL (80-100); Monocytes # (Auto) 1.3 Thou/mm3 (0.0-0.8); Monocytes % (Auto) 12 % (0-12); Neutrophils # (Auto) 6.7 Thou/mm3 (1.8-7.7); Neutrophils % (Auto) 62 % (37-80); Nucleated Red Blood Cell # 0.00 Thou/mm3 (0.00-0.00); Nucleated Red Blood Cell % 0 /100 WBC (0); Platelet Count 253 Thou/mm3 (140-440); RDW Standard Deviation 66.1 fL (36.4-46.3); Red Blood Count 3.22 Miln/mm3 (4.00-5.20); White Blood Count 10.8 Thou/mm3 (3.6-11.0)
[2025-04-17 17:55] LABS: Hemoglobin 8.3 g/dL (12.0-16.0); Lactate (Lactic Acid) 5.5 mMol/L (0.4-2.0)
[2025-04-17 18:09] LABS: Alanine Aminotransferase 110 U/L (10-49); Albumin, Serum 2.8 gm/dL (3.4-4.8); Albumin/Globulin Ratio 1.3 (1.2-2.2); Alkaline Phosphatase 510 U/L (46-116); Anion Gap 9 (7-16); Aspartate Amino Transferase 258 U/L (0-34); BUN/Creatinine Ratio 31 Ratio (12-20); Bilirubin,Total 3.6 mg/dL (0.3-1.2); Blood Urea Nitrogen 22 mg/dL (9-23); Calcium 8.3 mg/dL (8.3-10.6); Calcium (Corrected) 9.3 mg/dL (8.5-10.1); Carbon Dioxide 23.2 mMol/L (20.0-31.0); Chloride 102 mMol/L (98-107); Creatinine (Component) 0.7 mg/dL (0.6-1.3); Estimated Creatinine Clearance 57.5 mL/min (>60); Globulin 2.1 gm/dL (2.3-3.5); Glucose 100 mg/dL (74-106); Osmolality,Calculated 271 (275-295); Potassium 4.3 mMol/L (3.4-5.1); Sodium 134 mMol/L (136-145); Total Protein 4.9 gm/dL (5.7-8.2); Troponin I < 0.020 ng/mL (0.0-0.045); eGFR > 60 See Note
[2025-04-17] MEDS: RINGERS LACTATED 500 ML 500 ML 999 ML IV (18:10)
--- NOTE | 2025-04-17 18:20 | EVENTNT_ITS ---
Documentation for date of: 04/17/25 Event Note Event Note: Rapid response called at 1722. Patient complained of 7/10 dull chest pain in left chest/shoulder. On exam, patient was not in distress, reported dull, pleuritic pain reproducible on palpation. EKG ordered, benign. CXR without si gnificant changes from previous. Tylenol was ordered. BP soft, with MAP of 65. Troponin negative x1, will trend. Lactate 5.5. Ordered 500ml bolus LR, VBG. Will follow up on results. Notified Dr. Rodriguez. Plan of care discussed with attending Dr. Tabor. Jefferson Guzmán MD PGY-2
[2025-04-17 18:22] LABS: Base Excess, Venous -0 (-3-3); O2 Saturation, Venous 99 % (96-97); PCO2, Venous 35 mmHg (36-56); PO2, Venous 102 mmHg (15-58); pH, Venous 7.45 (7.33-7.66)
[2025-04-17] MEDS: MORPHINE SULF INJ 4 MG/ML VIAL 2 MG IVP (20:04)
[2025-04-17 20:43] LABS: Reflex Lactate? Y
[2025-04-17 21:43] LABS: Lactate (Lactic Acid) 6.6 mMol/L (0.4-2.0)
[2025-04-18] VITALS: BP 105/54; PULSE 80; RESP 20; TEMP 36.5; O2SAT 98
[2025-04-18 00:38] LABS: Reflex Lactate? Y
[2025-04-18 00:48] LABS: Troponin I < 0.020 ng/mL (0.0-0.045)
[2025-04-18 01:54] LABS: Lactic Acid, 3 HR 5.4 mMol/L (0.4-2.0)
[2025-04-18 04:00] VITALS: BP 99/52; PULSE 85; RESP 20; TEMP 36.7; O2SAT 93
[2025-04-18 04:14] VITALS: BP 99/52; PULSE 85
[2025-04-18] MEDS: MORPHINE SULF INJ 4 MG/ML VIAL 2 MG IVP (04:20)
--- NOTE | 2025-04-18 04:26 | PC.NURSE ---
re med rec- Advised pt to have family bring home med bottles from home.
[2025-04-18] MEDS: HEPARIN SOD INJ 5000 UNIT/ML VIAL SC (05:35)
[2025-04-18 05:48] LABS: Basophils # (Auto) 0.1 Thou/mm3 (0.0-0.2); Basophils % (Auto) 1 % (0-2.5); Eosinophils # (Auto) 0.3 Thou/mm3 (0.0-0.5); Eosinophils % (Auto) 3 % (0-10); Hematocrit 26.7 % (36.0-46.0); Immature Granulocytes Auto 0.10 Thou/mm3 (0.00-0.00); Lymphocytes # (Auto) 2.8 Thou/mm3 (1.0-4.8); Lymphocytes % (Auto) 23 % (10-50); Mean Corpuscular HGB Conc 31.1 g/dl (31.0-37.0); Mean Corpuscular Hemoglobin 25.6 pg (25.0-35.0); Mean Corpuscular Volume 82 fL (80-100); Monocytes # (Auto) 1.3 Thou/mm3 (0.0-0.8); Monocytes % (Auto) 11 % (0-12); Neutrophils # (Auto) 7.7 Thou/mm3 (1.8-7.7); Neutrophils % (Auto) 63 % (37-80); Nucleated Red Blood Cell # 0.00 Thou/mm3 (0.00-0.00); Nucleated Red Blood Cell % 0 /100 WBC (0); Platelet Count 283 Thou/mm3 (140-440); RDW Standard Deviation 66.3 fL (36.4-46.3); Red Blood Count 3.24 Miln/mm3 (4.00-5.20); White Blood Count 12.2 Thou/mm3 (3.6-11.0)
[2025-04-18 06:03] LABS: Hemoglobin 8.3 g/dL (12.0-16.0)
[2025-04-18 06:16] LABS: Alanine Aminotransferase 112 U/L (10-49); Albumin, Serum 2.9 gm/dL (3.4-4.8); Albumin/Globulin Ratio 1.3 (1.2-2.2); Alkaline Phosphatase 492 U/L (46-116); Anion Gap 9 (7-16); Aspartate Amino Transferase 277 U/L (0-34); BUN/Creatinine Ratio 33 Ratio (12-20); Bilirubin,Total 3.9 mg/dL (0.3-1.2); Blood Urea Nitrogen 26 mg/dL (9-23); Calcium 8.1 mg/dL (8.3-10.6); Calcium (Corrected) 9.0 mg/dL (8.5-10.1); Carbon Dioxide 24.2 mMol/L (20.0-31.0); Chloride 102 mMol/L (98-107); Creatinine (Component) 0.8 mg/dL (0.6-1.3); Estimated Creatinine Clearance 50.3 mL/min (>60); Globulin 2.3 gm/dL (2.3-3.5); Glucose 79 mg/dL (74-106); Osmolality,Calculated 273 (275-295); Potassium 4.9 mMol/L (3.4-5.1); Sodium 135 mMol/L (136-145); Total Protein 5.2 gm/dL (5.7-8.2); eGFR > 60 See Note
[2025-04-18 07:47] VITALS: BP 94/56; PULSE 84; RESP 16; TEMP 36.4; O2SAT 91
--- NOTE | 2025-04-18 09:16 | ESDS_ITS ---
Planned Discharge Date 04/18/25 DS: Providers Provider Date of admission: 04/14/25 16:32 Primary care physician: Doug Montes MD Admitting Provider: Doug Montes MD Attending Provider on Admission: Doug Montes MD Consults: 04/14/25 16:30 Referral Discharge Planning Stat Comment: rehab Referral Physical Therapy Routine Comment: Physician Instructions: 04/15/25 08:00 [facility] Referral - Knowledge Deficit Routine Comment: Positive screening for knowledge deficit needs. Attending Provider on DC: Doug Montes MD Discharging Provider: Doug Montes MD DS: Diagnosis Problem List Completed Was Problem List Reviewed/Reconciled?: Yes Hospital Course Hospital Course Hospital course: Informant daughter Ms. De is a 79-year-old unfortunate lady with past medical history significant for hypertension, dyslipidemia, coronary artery disease s/p angioplasty and stent, was admitted in February for weakness tiredness and shortn ess of breath and workup at that time showed metastatic liver cancer with unknown primary. Mets to liver, lung. Patient had a Port-A-Cath placed and is under the care of cancer center. Chemotherapy was supposed to be started next Friday. Patient continues to have significant weakness and unable to get up from the bed and her daughter brought her to the emergency department. Patient was admitted previously and discharged yesterday. She declined to go to rehab. However due to significant weakness today she agreed to go to rehab. Patient has paracentesis done yesterday. Patient has not been eating or drinking at home. Patient with significant edema secondary to hypoalbuminemia Current medications include alprazolam, carvedilol, Lexapro, prochlorperazine In the emergency department-blood pressure 118/52, heart rate 70. WBC 11.1, hemoglobin 8.9, platelets 208. Sodium 140, potassium 4.0, creatinine 0.8, lactic acid 2.8, magnesium 2.5, total bilirubin 5.5, AST 311, ALT 122, alk phos 507, albumin 3.2, Pro-Ross 0.36, urinalysis negative.Chest x-ray showed early right base pneumonia. Venous Doppler ultrasound showed no DVT in both legs. Patient admitted with a diagnosis of failure to thrive, ascites, significant weakness, gait imbalance and falls. Spoke to Aneta her daughter-patient made herself DNR/DNI. Wants to continue with chemotherapy. She went and saw Dr. Cobb this morning. Dr. Perales recommended p.o. chemo and hospital admission for discharging her to rehab as she is very weak. Physical therapy, discharge planning to rehab ordered. Home medications were reconciled. 04/15/2025 patient currently seen in medical floor. Still feeling extremely fatigued and weak. Physical therapy ordered. Patient requesting to go to rehab. Labs/medications reviewed. Patient complaining of sleep problems. Will add temazepam. Hypoalbuminemia causing third spacing-added Ensure 04/16/2025: Patient seen and examined bedside this morning. Endorses improvement of her weakness. Patient worked with physical therapy. Currently pending completion of 3 midnights prior to discharge to [place]. Anticipate discharge on 04/18. 04/17/2025: Patient seen and examined at bedside this morning. Her was present. Patient again endorses further improvement of her generalized weakness. Pending completion of the 3 midnights prior to discharge to [place] acute rehab. Anticipate discharge tomorrow on 04/1804/18/2025: Patient seen and examined at bedside. Overnight, rapid called for 7/10 chest pain, EKG and troponins negative. Morphine prn initiated. Pain reproducible with palpation on L ribs. Expresses significant fatigue this AM. Spoke with daughter Aneta on phone and plan to discharge to [place] and hospice team to come speak with patient and family at [place]. Hospital Diagnoses: # Community-acquired pneumonia # Multiple Hepatic Lesions / Hepatomegaly/liver cancer with primary unknown # Elevated Liver Enzymes # Pulmonary Nodules # Anemia # Hypertension # Coronary Artery Disease # Anxiety and Depression Plan of care discussed with attending Dr. Montes. Beryl Seth, DO Internal Medicine, PGY-1 Time Spent with Patient Time attestation: Total time spent providing and/or coordinating discharge services: Time spent: Greater than 30 minutes Exam Vital Signs Temp Pulse Resp BP Pulse Ox O2 Del Method 97.6 F 84 16 94/56 L 91 L Room Air 04/18/25 07:47 04/18/25 07:47 04/18/25 07:47 04/18/25 07:47 04/18/25 07:47 04/18/25 07:47 Narrative Exam GENERAL APPEARANCE: NAD, AO x3, extremely fatigued NECK: Neck supple, no JVD or bruit CARDIOVASCULAR: Heart regular, no murmurs LUNGS/CHEST: Chest clear to auscultation. No rales, rhonchi, wheezing ABDOMEN: Soft, ascites noted EXTREMITIES: 1+ edema in the lower extremities SKIN: Skin exam normal without any rashes MUSCULOSKELETAL: In bed NEUROLOGICAL : No neurological deficits, able to move all her extremities Discharge Plan Plan Patient Disposition: Xfer Skilled Nsg Fac (SNF) Prescriptions/Referrals Prescriptions/Med Rec: Continued prednisolone acetate 1 % drops,suspension 1 drp Left eye .Q24 Patient Comments: INSTILL 1 DROP IN LEFT EYE FOUR TIMES A DAY alprazolam 0.25 mg tablet 0.25 mg PO .Q24 PRN (Reason: anxiety) Patient Comments: TAKE 1 TABLET BY MOUTH TWICE A DAY NEEDED carvedilol 3.125 mg tablet 3.125 mg PO DAILY Rx Instructions: must administer with a meal/food escitalopram oxalate 10 mg tablet 10 mg PO DAILY Patient Comments: TAKE 1 TABLET BY MOUTH EVERY DAY prochlorperazine maleate 5 mg tablet 5 mg PO Q24H Patient Comments: 1 TABLET DAILY furosemide 20 mg tablet 20 mg PO Q24H PRN (Reason: edema ) Referrals: Doug Montes MD [Primary Care Provider, Nephrology] Patient/Caregiver Discharge Instructions Discharge Activity: activity as tolerated Print Language: Tajik Activity Restrictions/Additional Instructions: Dr. schwartz to follow at rehab f/u with Dr. Cobb as scheduled Stand Alone Forms: Hilaria Award Info., Patient Portal Info Letter Discharge Order Discharge Orders: Discharge (Routine); Ordered 04/18/25 Ordered By: Doug Montes Quality Discharge Quality Measures VTE prophylaxis
[2025-04-18] MEDS: cefTRIAXone/D5w 1gm IV premix 1 GM/50 ML BAG IV (09:38)
[2025-04-18] MEDS: ESCITALOPRAM OXALATE 10 MG TABLET PO (09:38)
[2025-04-18] MEDS: ASPIRIN EC 81 MG TABEC PO (09:38)
[2025-04-18 09:39] VITALS: BP 94/56; PULSE 84
--- NOTE | 2025-04-18 10:46 | PC.SS ---
Follow up note: Patient has d/c orders for today. [facility] can transport patient via [facility]. Floor nurse aware. buildings and grounds supervisor time of 1p.mDara guerrero. SS will updated patient's daughter, Aneta.
[2025-04-18 11:59] VITALS: BP 90/57; PULSE 85; RESP 17; TEMP 36.2; O2SAT 91
== END 2025-04-18 12:45 | disposition skilled nursing facility (03) | DRG 640 ==
LOC: SERX 12:56 → SERHOLD 16:36 → S3NX 04-15 05:43
PROVIDERS: Admitting Provider Internal Medicine; Emergency Provider Family Medicine; PCP Internal Medicine; Visit Provider Internal Medicine
DX: R62.7 Adult failure to thrive (principal); J18.9 Pneumonia, unspecified organism; C78.7 Secondary malignant neoplasm of liver and intrahepatic bile duct; C78.00 Secondary malignant neoplasm of unspecified lung; R18.8 Other ascites; I25.10 Atherosclerotic heart disease of native coronary artery without angina pectoris; E78.5 Hyperlipidemia, unspecified; I10 Essential (primary) hypertension; Z95.5 Presence of coronary angioplasty implant and graft; Z87.891 Personal history of nicotine dependence; Z66 Do not resuscitate; D64.9 Anemia, unspecified; F32.A Depression, unspecified; F41.9 Anxiety disorder, unspecified; R54 Age-related physical debility; G47.9 Sleep disorder, unspecified
CPT/HCPCS: 36415; 51701; 71045; 80053; 81001; 82803; 83605; 83735; 84145; 84484; 85025; 87081; 87635; 93005; 93970; 96365; 97162; 99283; J0696; J1644; J2270; J7120; Q0164; A9270